=== PATIENT | female | born 1945 | race Caucasian/White ===

== ENCOUNTER 2020-01-04 18:32 | Emergency (ER) | payer MEDICARE, SELFPAY ==
[2020-01-04 18:35] VITALS: BP 192/80; PULSE 81; RESP 16; TEMP 36.1; O2SAT 98; BMI 32.2
[2020-01-04] MEDS: LIDOCAINE 2% W/EPI INJ 1 ML INJ (19:09)
[2020-01-04] MEDS: TET,DIPH,PERTUSS(ACELL),VAC/PF 0.5 ML SYRINGE IM (19:10)
--- NOTE | 2020-01-04 19:41 | ED.WOUNDLAC ---
HPI - Wound/Laceration <BLOSSOM Hogue - Last Filed: 01/04/20 20:27> General Chief Complaint: Wound/Laceration Stated Complaint: LACERATION OF TOP OF HEAD Time Seen by Provider: 01/04/20 18:49 Mode of arrival: Family Vehicle History of Present Illness HPI narrative: 74 year old female with a history of a renal transplant and diabetes, presents to the emergency department for laceration to the back of her scalp. She states she was mowing the lawn when a branch hit her on the top of her head. She noticed some bleeding and a laceration. She is unsure of last Tdap. Patient denies any syncope, dizziness, headache, vision changes, neck pain, falls, nausea, vomiting, diarrhea, or any other concerns. Related Data Allergies Allergy/AdvReac Type Severity Reaction Status Date / Time Penicillins Allergy Mild Verified 01/04/20 19:08 Review of Systems <BLOSSOM Hogue - Last Filed: 01/04/20 20:27> Review of Systems Narrative: REVIEW OF SYSTEMS: GENERAL: Denies fever or chills. HENT: Denies headache. EYE: Denies double vision or vision loss. CARDIOVASCULAR: Denies syncope. MUSCULOSKELETAL: Denies weakness, or deformities. INTEGUMENTARY: Complains of laceration, see HPI. NEURO: Denies numbness or tingling. Patient History <BLOSSOM Hogue - Last Filed: 01/04/20 20:27> Medical History Diabetes (Acute) Social History Smoking Status: Former smoker Smoking Status: Former smoker alcohol intake frequency: 0-2 drinks per day Substance Use Type: does not use Exam <BLOSSOM Hogue - Last Filed: 01/04/20 20:27> Initial Vital Signs Initial Vital Signs: Vital Signs Temperature 97.0 F L 01/04/20 18:35 Pulse Rate 81 01/04/20 18:35 Respiratory Rate 16 01/04/20 18:35 Blood Pressure 192/80 H 01/04/20 18:35 Pulse Oximetry 98 01/04/20 18:35 PHYSICAL EXAMINATION: GENERAL: Well groomed, alert, and cooperative. Answers questions promptly and appropriately. Vital signs noted. HENT: Normocephalic, atraumatic. RESPIRATORY: Normal respiratory rate, trachea midline, airway patent. No stridor, nasal flaring or accessory muscle use. MUSCULOSKELETAL: Normal gait and coordination. Equal tone and mass bilaterally. EXTREMITIES: CMS intact. Moves all extremities. SKIN: Warm, dry, soft, appropriate color for ethnicity. There is a 9 cm laceration noted to top head, see HPI. NEURO: Alert and Oriented X 3. Good coordination. PSYCH: Appropriate affect and mood. <Chino Anna DO - Last Filed: 01/04/20 22:07> Initial Vital Signs Initial Vital Signs: Vital Signs Temperature 97.0 F L 01/04/20 18:35 Pulse Rate 81 01/04/20 18:35 Respiratory Rate 16 01/04/20 18:35 Blood Pressure 192/80 H 01/04/20 18:35 Pulse Oximetry 98 01/04/20 18:35 Procedures <BLOSSOM Hogue - Last Filed: 01/04/20 20:27> Laceration Repair Laceration 1: Site: scalp Size (cm): 9 Description: linear Depth: simple, single layer Local Anesthetic: lidocaine 1% and with epi Amount of anesthesia used (mL): 2 Pre-repair: wound explored and irrigated extensively Skin layer closed with: louis Number of sutures: 2 Scores <BLOSSOM Hogue - Last Filed: 01/04/20 20:27> Nexus Score for C-Spine Focal Neurologic deficit present: No Midline spinal tenderness present: No Altered level of conciousness present: No Intoxication present: No Distracting Injury Present: No Nexus Criteria for C-spine: 0 Course <BLOSSOM Hogue - Last Filed: 01/04/20 20:27> Orders Ordered: Discontinued Medications Diphtheria/Tetanus/Acell Pertussis (Adacel) 0.5 ml IM .ONCE ONE Stop: 01/04/20 18:50 Last Admin: 01/04/20 19:10 Dose: 0.5 ml Documented by: CLAUANCE Lidocaine/Epinephrine (Xylocaine 2% W/Epi) 1 ml INJ INTRA-OP ONE Stop: 01/04/20 18:50 Last Admin: 01/04/20 19:09 Dose: 1 ml Documented by: CVANCE Vital Signs Vital signs: Vital Signs - 8 hr 06/26/20 18:35 01/04/20 19:44 01/04/20 19:55 Temperature 97.0 F L Pulse Rate 81 80 78 Respiratory Rate 16 18 15 Blood Pressure 192/80 H 104/56 L Blood Pressure [Left Arm] 121/63 Pulse Oximetry 98 96 96 <Chino Anna DO - Last Filed: 01/04/20 22:07> Orders Ordered: Discontinued Medications Diphtheria/Tetanus/Acell Pertussis (Adacel) 0.5 ml IM .ONCE ONE Stop: 01/04/20 18:50 Last Admin: 01/04/20 19:10 Dose: 0.5 ml Documented by: CVANCE Lidocaine/Epinephrine (Xylocaine 2% W/Epi) 1 ml INJ INTRA-OP ONE Stop: 01/04/20 18:50 Last Admin: 01/04/20 19:09 Dose: 1 ml Documented by: CVANCE Vital Signs Vital signs: Vital Signs - 8 hr 01/04/20 18:35 01/04/20 19:44 01/04/20 19:55 Temperature 97.0 F L Pulse Rate 81 80 78 Respiratory Rate 16 18 15 Blood Pressure 192/80 H 104/56 L Blood Pressure [Left Arm] 121/63 Pulse Oximetry 98 96 96 MDM - Wound/Laceration <BLOSSOM Hogue - Last Filed: 01/04/20 20:27> Medical Records Attestation: I reviewed the patient's medical records. Lab Data Attestation: I reviewed the patient's lab results. MDM Narrative Medical decision making narrative: 74-year-old female with a laceration to the back of her head, currently not taking any blood thinners other than aspirin. Simple laceration repair with sutures, see laceration note. No concerns for head trauma, intracranial bleed, or neck injury due to mechanism of injury, and lack of other concerning symptoms such as syncope, falls, or vision changes. Patient's Tdap was updated. Patient was encouraged to follow up with her primary care provider in 1-2 weeks for further evaluation and suture removal. Return precautions given. Patient agreed to plan of care verbalized understanding. Discharge Plan Departure Patient Disposition: Home Clinical Impression: Laceration Discharge Date/Time: 01/04/20 19:56 Instructions: DI for Laceration Repair Activity Restrictions/Additional Instructions: Thank you for entrusting me with your care today. As discussed, louis were placed in your scalp laceration. These can be removed in 7-[address] bacitracin or Neosporin on the area 1 to 2 times a day to help with healing. Please watch for signs of infection such as pus, redness, tenderness, or discharge--if this occurs please be seen immediately. Return emergency department for any new or worsening symptoms such as severe headache, dizziness, chest pain, shortness of breath, or any other concerns. Referrals: Suzette Gamez MD [Primary Care Provider] - <Chino Anna DO - Last Filed: 01/04/20 22:07> Cosign ED Attending Cosignature Attestation: Dr Anna Co-Sign Statement: I was available for consultation during this patient's emergency department visit. This chart is signed by myself for administrative purposes only. I did not have direct contact with this patient during this visit. They were seen independently by the APC.
[2020-01-04 19:44] VITALS: BP 121/63; PULSE 80; RESP 18; O2SAT 96
[2020-01-04 19:55] VITALS: BP 104/56; PULSE 78; RESP 15; O2SAT 96
== END 2020-01-04 19:56 | disposition home or self-care (01) ==
PROVIDERS: Emergency Provider Nurse Practitioner; PCP Family Medicine
DX: S01.01XA Laceration without foreign body of scalp, initial encounter (principal); W22.8XXA Striking against or struck by other objects, initial encounter; Z23 Encounter for immunization
CPT/HCPCS: 12004; 90471; 99283; 90715

== ENCOUNTER 2020-01-21 17:33 | Emergency (ER) | payer MEDICARE, SELFPAY ==
[2020-01-21 17:42] VITALS: BP 148/92; PULSE 94; RESP 18; TEMP 37; O2SAT 97; BMI 32.5
[2020-01-21 19:43] LABS: RBC Urine None Seen (0-5/HPF)
--- NOTE | 2020-01-21 19:52 | ED.FEVER ---
HPI - Fever <HAILEY Clarke-BC - Last Filed: 01/21/20 22:20> General Chief Complaint: Fever Stated Complaint: Fever, Diabetic, Has Kidney Transplant Time Seen by Provider: 01/21/20 18:39 Source: patient Mode of arrival: Ambulatory Limitations: no limitations History of Present Illness HPI Narrative: 74-year-old female former smoker with history of renal transplant 1 year ago who presents with a chief complaint of a fever yesterday. She states that her T-max over the past few days as 100.5?. She states that since she is normally 97?, even 98? is a fever. She denies any nausea or vomiting. She denies any cough or chest pain. She denies any shortness of breath. She states that she has ?feeling? in her right ear, no pain in her left ear. She does complain of ?pressure with urination that resolves after she urinates. She denies any dysuria, states that urgency and frequency are normal for her. She called her primary care provider, Dr. Ohara who referred her to the emergency department for covid testing. She is trying to stay at home to isolate at this point, especially given her renal transplant though has been out walking her dogs and at the beach [facility]. The patient states she takes tac 2.5 mg in the morning, 2 at night. She is also on meclofenamate 6.25 mg twice a day. Related Data Previous Rx's Medication Instructions Recorded ciprofloxacin HCl 500 mg PO BID 7 Days #14 tab 01/21/20 Allergies Allergy/AdvReac Type Severity Reaction Status Date / Time Penicillins Allergy Mild Verified 01/04/20 19:08 Review of Systems <KIRK Clarke - Last Filed: 01/21/20 22:20> Review of Systems Narrative: GENERAL: See HPI HEENT: See HPI RESPIRATORY: Denies dyspnea, cough, wheezing, hemoptysis, sputum. CARDIOVASCULAR: Denies chest pain, palpitations, orthopnea, edema, GASTROINTESTINAL: Denies nausea, vomiting, abdominal pain, diarrhea, constipation, melena. : Denies dysuria, frequency, incontinence, hematuria, urinary retention. MUSCULOSKELETAL: denies weakness, joint pain, or bony pain SKIN: Denies rash, skin lesions, or other NEUROLOGIC: Denies weakness, headache, numbness, change in speech, confusion, seizures, incoordination. PSYCHIATRIC: No concerning psychosocial issues. 12 point review of systems is negative except for those stated above Patient History <KIRK Clarke - Last Filed: 01/21/20 22:20> Medical History (Updated 01/21/20 @ 22:17 by KIRK Clarke) Diabetes (Acute) Social History Smoking Status: Former smoker Smoking Status: Former smoker alcohol intake frequency: 0-2 drinks per day Substance Use Type: does not use Exam <KIRK Clarke - Last Filed: 01/21/20 22:20> Narrative Exam Narrative: GENERAL: This is a well-nourished, well-developed patient, no acute distress HEAD: Atraumatic. Normocephalic. No temporal or scalp tenderness. EYES: Pupils equal round and reactive. Extraocular motions intact. No scleral icterus. No injection or drainage. ENT: Nose without bleeding, purulent drainage or septal hematoma. Throat without erythema, tonsillar hypertrophy or exudate. Uvula midline. Airway patent. Bilateral TMs pearly jacob. NECK: Trachea midline. No JVD or lymphadenopathy. Supple, nontender, no meningeal signs. CARDIOVASCULAR: Regular rate and rhythm. RESPIRATORY: Clear to auscultation. Breath sounds equal bilaterally. No wheezes, rales, or rhonchi. No cough. No increased respiratory effort. No accessory muscle use GASTROINTESTINAL: Abdomen soft, non-tender, nondistended. No hepato-splenomegaly, or palpable masses. No guarding. EXTREMITIES: No clubbing, cyanosis, or edema. No joint tenderness, effusion, or edema noted. BACK: Nontender without deformity or crepitance. No flank tenderness. No CVA tenderness bilaterally. NEURO: AOx3. SKIN: No rash or erythema on visible skin Initial Vital Signs Initial Vital Signs: Vital Signs Temperature 98.6 F 01/21/20 17:42 Pulse Rate 94 H 01/21/20 17:42 Respiratory Rate 18 01/21/20 17:42 Blood Pressure 148/92 H 01/21/20 17:42 Pulse Oximetry 97 01/21/20 17:42 <Luis Hicks DO - Last Filed: 01/22/20 00:18> Initial Vital Signs Initial Vital Signs: Vital Signs Temperature 98.6 F 01/21/20 17:42 Pulse Rate 94 H 01/21/20 17:42 Respiratory Rate 18 01/21/20 17:42 Blood Pressure 148/92 H 01/21/20 17:42 Pulse Oximetry 97 01/21/20 17:42 Scores <KIRK Clarke - Last Filed: 01/21/20 22:20> GCS Joiner coma scale eye opening: Spontaneous Joiner coma scale verbal response: Orientated Loni coma scale motor response: Obey commands Joiner coma scale total score: 15 Course <KIRK Clarke - Last Filed: 01/21/20 22:20> Orders Ordered: ED Orders 01/21/20 19:15 Urine Culture Stat Urine Microscopic Stat 01/21/20 19:50 Complete Blood Count AUTO DIFF Stat Comprehensive Metabolic Panel Stat Lactate (Lactic Acid) Stat Procalcitonin Stat 01/21/20 19:59 Blood Culture Stat Discontinued Medications Acetaminophen (Tylenol) 975 mg PO NOW ONE Stop: 01/21/20 21:33 Last Admin: 01/21/20 21:36 Dose: 975 mg Documented by: RONAK Ciprofloxacin (Cipro) 500 mg PO NOW ONE Stop: 01/21/20 22:10 Last Admin: 01/21/20 22:30 Dose: 500 mg Documented by: RONAK Vital Signs Vital signs: Vital Signs - 8 hr 01/21/20 17:42 01/21/20 20:05 01/21/20 21:32 Temperature 98.6 F 98.9 F 101.3 F H Pulse Rate 94 H 101 H 101 H Respiratory Rate 18 20 20 Blood Pressure 148/92 H 196/80 H 176/84 H Pulse Oximetry 97 98 97 01/21/20 21:36 01/21/20 22:30 Temperature 101.3 F H 99.8 F H Pulse Rate 98 H Respiratory Rate 20 Blood Pressure 133/63 Pulse Oximetry 95 <Luis Hicks DO - Last Filed: 01/22/20 00:18> Orders Ordered: ED Orders 01/21/20 19:15 Urine Culture Stat Urine Microscopic Stat 01/21/20 19:50 Complete Blood Count AUTO DIFF Stat Comprehensive Metabolic Panel Stat Lactate (Lactic Acid) Stat Procalcitonin Stat 01/21/20 19:59 Blood Culture Stat Discontinued Medications Acetaminophen (Tylenol) 975 mg PO NOW ONE Stop: 01/21/20 21:33 Last Admin: 01/21/20 21:36 Dose: 975 mg Documented by: CTRMABEL Ciprofloxacin (Cipro) 500 mg PO NOW ONE Stop: 01/21/20 22:10 Last Admin: 01/21/20 22:30 Dose: 500 mg Documented by: CTRMABEL Vital Signs Vital signs: Vital Signs - 8 hr 01/21/20 17:42 01/21/20 20:05 01/21/20 21:32 Temperature 98.6 F 98.9 F 101.3 F H Pulse Rate 94 H 101 H 101 H Respiratory Rate 18 20 20 Blood Pressure 148/92 H 196/80 H 176/84 H Pulse Oximetry 97 98 97 01/21/20 21:36 01/21/20 22:30 Temperature 101.3 F H 99.8 F H Pulse Rate 98 H Respiratory Rate 20 Blood Pressure 133/63 Pulse Oximetry 95 MDM - Fever <HAILEY Clarke-BC - Last Filed: 01/21/20 22:20> Lab Data Result diagrams: 01/21/20 19:50 01/21/20 19:50 Labs: Lab Results 01/21/20 01/21/20 01/21/20 Range/Units 19:15 19:50 19:50 WBC 13.1 H (4.5-11.0) X10^3/uL RBC 4.29 (4.0-5.2) X10^6/uL Hgb 13.5 (12.0-16.0) g/dL Hct 40.0 (36-46) % MCV 93.2 (80-100) fL MCH 31.4 (26-34) PG MCHC 33.7 (30-36) % RDW 13.6 (11.6-14.8) % Plt Count 201 (150-400) X10^3/uL Neut % (Auto) 86.9 H (50-75) % Lymph % (Auto) 6.0 L (25-40) % [place] % (Auto) 7.0 (3-14) % Eos % (Auto) 0.0 L (2-4) % Baso % (Auto) 0.1 (0-2) % Neut # (Auto) 40756 H (2635-3495) /uL Lymph # (Auto) 800 L (9583-0286) /uL [place] # (Auto) 900 (0-900) /uL Eos # (Auto) 0 (0-450) /uL Baso # (Auto) 0 (0-100) /uL Sodium (137-145) mmol/L Potassium (3.4-5.1) mmol/L Chloride (98-107) mmol/L Carbon Dioxide (22-32) mmol/L BUN (7-17) mg/dL Creatinine (0.52-1.04) mg/dL Estimated GFR (>60) mL/min BUN/Creatinine Ratio (6-22) Glucose (80-110) mg/dL Lactate (0.7-2.1) mmol/L Calcium (8.4-10.2) mg/dL Total Bilirubin (0.2-1.3) mg/dL AST (14-36) IU/L ALT (<35) IU/L Alkaline Phosphatase (38-126) U/L Total Protein (6.3-8.2) g/dL Albumin (3.5-5.0) g/dL Globulin (1.7-4.1) g/dL Albumin/Globulin Ratio (1.0-2.8) Procalcitonin 0.15 (<0.5) ng/mL Urine RBC None seen (0-5/HPF) Urine WBC 5-10/hpf H (0-5/HPF) Ur Squamous Epith Cells 0-1 /hpf (0-5/HPF) Urine Bacteria Many (>30) H (None) Ur Culture Indicated? Specimen cultured 01/21/20 01/21/20 Range/Units 19:50 19:50 WBC (4.5-11.0) X10^3/uL RBC (4.0-5.2) X10^6/uL Hgb (12.0-16.0) g/dL Hct (36-46) % MCV (80-100) fL MCH (26-34) PG MCHC (30-36) % RDW (11.6-14.8) % Plt Count (150-400) X10^3/uL Neut % (Auto) (50-75) % Lymph % (Auto) (25-40) % [place] % (Auto) (3-14) % Eos % (Auto) (2-4) % Baso % (Auto) (0-2) % Neut # (Auto) (4296-2444) /uL Lymph # (Auto) (0029-3562) /uL [place] # (Auto) (0-900) /uL Eos # (Auto) (0-450) /uL Baso # (Auto) (0-100) /uL Sodium 133 L (137-145) mmol/L Potassium 4.3 (3.4-5.1) mmol/L Chloride 101 (98-107) mmol/L Carbon Dioxide 24 (22-32) mmol/L BUN 17 (7-17) mg/dL Creatinine 0.79 (0.52-1.04) mg/dL Estimated GFR > 60.0 (>60) mL/min BUN/Creatinine Ratio 21.5 (6-22) Glucose 112 H (80-110) mg/dL Lactate 1.7 (0.7-2.1) mmol/L Calcium 10.9 H (8.4-10.2) mg/dL Total Bilirubin 0.8 (0.2-1.3) mg/dL AST 35 (14-36) IU/L ALT 34 (<35) IU/L Alkaline Phosphatase 106 (38-126) U/L Total Protein 7.3 (6.3-8.2) g/dL Albumin 4.4 (3.5-5.0) g/dL Globulin 2.9 (1.7-4.1) g/dL Albumin/Globulin Ratio 1.5 (1.0-2.8) Procalcitonin (<0.5) ng/mL Urine RBC (0-5/HPF) Urine WBC (0-5/HPF) Ur Squamous Epith Cells (0-5/HPF) Urine Bacteria (None) Ur Culture Indicated? Urine Dip Bedside Urine Glucose Negative Bedside Urine Bilirubin - Negative Bedside Urine Ketone - Negative Urine Specific [place] 1.010 Bedside Urine Occult Blood +/- Bedside Urine pH 6.0 Bedside Urine Protein - Negative Bedside Urine Urobilinogen - Negative Bedside Urine Nitrite + Positive Bedside Urine Leukocytes + 70 Esterase MDM Narrative Medical decision making narrative: The patient is a 74-year-old female who presents with a chief complaint of a fever yesterday. She was tested for coronavirus, though has no respiratory symptoms. Given that she had urinary pressure, we did obtain a urinalysis. This was positive for leukocyte esterase as well as nitrates. Thus lab work obtained, slight leukocytosis to 13. Lactate of 1.7. Procalcitonin less than 0.5. The patient requested to go home multiple times. No nausea, no vomiting, no CVA tenderness or abdominal pain. Given that the patient is 1 year post kidney transplant as well as this is her 1st UTI posttransplant. The patient did develop a temperature during her stay in the emergency department, while I was waiting to hear back from [facility]. A g of Tylenol was given. Contact with [facility] was initiated at 9:00 p.m, heard back from transfer center nurse at 21:35, and will hear back from attending. I heard from Dr. Taylor, transplant surgeon on-call who recommended that the patient be placed on Cipro. We discussed her lab work, leukocytosis, procalcitonin and renal function. Encouraged follow-up with primary care provider. Patient is in accordance with plan of care and requesting to go home. First dose of Cipro given in the emergency department. Encourage coming back to the emergency department for any signs of acute worsening such as inability keep down fluids etcetera. Patient has no questions or concerns upon discharge and states understanding of return precautions as well as follow-up care. <Luis Hicks, - Last Filed: 01/22/20 00:18> Lab Data Labs: Lab Results 01/21/20 01/21/20 01/21/20 Range/Units 19:15 19:50 19:50 WBC 13.1 H (4.5-11.0) X10^3/uL RBC 4.29 (4.0-5.2) X10^6/uL Hgb 13.5 (12.0-16.0) g/dL Hct 40.0 (36-46) % MCV 93.2 (80-100) fL MCH 31.4 (26-34) PG MCHC 33.7 (30-36) % RDW 13.6 (11.6-14.8) % Plt Count 201 (150-400) X10^3/uL Neut % (Auto) 86.9 H (50-75) % Lymph % (Auto) 6.0 L (25-40) % [place] % (Auto) 7.0 (3-14) % Eos % (Auto) 0.0 L (2-4) % Baso % (Auto) 0.1 (0-2) % Neut # (Auto) 44052 H (5993-4660) /uL Lymph # (Auto) 800 L (4210-0510) /uL [place] # (Auto) 900 (0-900) /uL Eos # (Auto) 0 (0-450) /uL Baso # (Auto) 0 (0-100) /uL Sodium (137-145) mmol/L Potassium (3.4-5.1) mmol/L Chloride (98-107) mmol/L Carbon Dioxide (22-32) mmol/L BUN (7-17) mg/dL Creatinine (0.52-1.04) mg/dL Estimated GFR (>60) mL/min BUN/Creatinine Ratio (6-22) Glucose (80-110) mg/dL Lactate (0.7-2.1) mmol/L Calcium (8.4-10.2) mg/dL Total Bilirubin (0.2-1.3) mg/dL AST (14-36) IU/L ALT (<35) IU/L Alkaline Phosphatase (38-126) U/L Total Protein (6.3-8.2) g/dL Albumin (3.5-5.0) g/dL Globulin (1.7-4.1) g/dL Albumin/Globulin Ratio (1.0-2.8) Procalcitonin 0.15 (<0.5) ng/mL Urine RBC None seen (0-5/HPF) Urine WBC 5-10/hpf H (0-5/HPF) Ur Squamous Epith Cells 0-1 /hpf (0-5/HPF) Urine Bacteria Many (>30) H (None) Ur Culture Indicated? Specimen cultured 01/21/20 01/21/20 Range/Units 19:50 19:50 WBC (4.5-11.0) X10^3/uL RBC (4.0-5.2) X10^6/uL Hgb (12.0-16.0) g/dL Hct (36-46) % MCV (80-100) fL MCH (26-34) PG MCHC (30-36) % RDW (11.6-14.8) % Plt Count (150-400) X10^3/uL Neut % (Auto) (50-75) % Lymph % (Auto) (25-40) % [place] % (Auto) (3-14) % Eos % (Auto) (2-4) % Baso % (Auto) (0-2) % Neut # (Auto) (5702-1778) /uL Lymph # (Auto) (4612-3164) /uL [place] # (Auto) (0-900) /uL Eos # (Auto) (0-450) /uL Baso # (Auto) (0-100) /uL Sodium 133 L (137-145) mmol/L Potassium 4.3 (3.4-5.1) mmol/L Chloride 101 (98-107) mmol/L Carbon Dioxide 24 (22-32) mmol/L BUN 17 (7-17) mg/dL Creatinine 0.79 (0.52-1.04) mg/dL Estimated GFR > 60.0 (>60) mL/min BUN/Creatinine Ratio 21.5 (6-22) Glucose 112 H (80-110) mg/dL Lactate 1.7 (0.7-2.1) mmol/L Calcium 10.9 H (8.4-10.2) mg/dL Total Bilirubin 0.8 (0.2-1.3) mg/dL AST 35 (14-36) IU/L ALT 34 (<35) IU/L Alkaline Phosphatase 106 (38-126) U/L Total Protein 7.3 (6.3-8.2) g/dL Albumin 4.4 (3.5-5.0) g/dL Globulin 2.9 (1.7-4.1) g/dL Albumin/Globulin Ratio 1.5 (1.0-2.8) Procalcitonin (<0.5) ng/mL Urine RBC (0-5/HPF) Urine WBC (0-5/HPF) Ur Squamous Epith Cells (0-5/HPF) Urine Bacteria (None) Ur Culture Indicated? Urine Dip Bedside Urine Glucose Negative Bedside Urine Bilirubin - Negative Bedside Urine Ketone - Negative Urine Specific [place] 1.010 Bedside Urine Occult Blood +/- Bedside Urine pH 6.0 Bedside Urine Protein - Negative Bedside Urine Urobilinogen - Negative Bedside Urine Nitrite + Positive Bedside Urine Leukocytes + 70 Esterase Discharge Plan Departure Patient Disposition: Home Clinical Impression: Acute UTI Fever Qualifiers: Fever type: unspecified Qualified Code(s): R50.9 - Fever, unspecified Discharge Date/Time: 01/21/20 22:30 Instructions: DI for Urinary Tract Infection (UTI), DI for Fever (Symptom) -- Adult Activity Restrictions/Additional Instructions: Thank you for trusting us with your care today As discussed, your urinalysis indicates a urinary tract infection. I spoke with Dr. Taylor from [facility] who recommended ciprofloxacin. I sent this prescription to [facility] in [place]. Please take it with probiotic or yogurt. As discussed, please monitor for any tendon pain. Please monitor for signs of worsening such as inability keep down fluids, severe flank or back pain. Please follow up if these occur. Please come back to the emergency department for any acute concerns. Please follow-up with primary care provider in the next few days We will call you with results of your coronavirus test whether they are positive or negative. They will result in 1-2 days. Prescriptions: New ciprofloxacin HCl 500 mg tablet 500 mg PO BID 7 Days Qty: 14 RF: 0 Referrals: Neda Ohara MD [Primary Care Provider] - <Luis Hicks DO - Last Filed: 01/22/20 00:18> Cosign ED Attending Cosignature Attestation: I was immediately available in the department for consultation. This documentation has been reviewed and I agree with assessment and plan. Supervised by Luis Hicks DO
[2020-01-21 19:53] LABS: Bacteria Urine Many (>30); Culture Indicated Urine Specimen Cultured; Squamous Epithelial Cell Urine 0-1 /HPF (0-5/HPF); WBC Urine 5-10/HPF (0-5/HPF)
[2020-01-21 20:05] VITALS: BP 196/80; PULSE 101; RESP 20; TEMP 37.2; O2SAT 98
[2020-01-21 20:16] LABS: Add Manual Diff / Slide Review NO; Basophils Absolute Auto 0 /uL (0-100); Basophils Percent Auto 0.1 % (0-2); Eosinophils Absolute Auto 0 /uL (0-450); Hemoglobin 13.5 g/dL (12.0-16.0); Lymphocytes Absolute Auto 800 /uL (1100-4500); Mean Corpuscular HGB Conc 33.7 % (30-36); Mean Corpuscular Hemoglobin 31.4 PG (26-34); Mean Corpuscular Volume 93.2 fL (80-100); Monocytes Absolute Auto 900 /uL (0-900); Neutrophils Absolute Auto 11400 /uL (1500-7000); Neutrophils Percent Auto 86.9 % (50-75); Platelet Count 201 X10^3/uL (150-400); Red Blood Cell Count 4.29 X10^6/uL (4.0-5.2); Red Cell Distribution Width 13.6 % (11.6-14.8); White Blood Cell Count 13.1 X10^3/uL (4.5-11.0)
[2020-01-21 20:24] LABS: Alanine Aminotransferase 34 IU/L (<35); Albumin 4.4 g/dL (3.5-5.0); Albumin Globulin Ratio 1.5 (1.0-2.8); Alkaline Phosphatase 106 U/L (38-126); Aspartate Aminotransferase 35 IU/L (14-36); BUN Creatinine Ratio 21.5 (6-22); Bilirubin Total 0.8 mg/dL (0.2-1.3); Blood Urea Nitrogen 17 mg/dL (7-17); Calcium 10.9 mg/dL (8.4-10.2); Carbon Dioxide 24 mmol/L (22-32); Chloride 101 mmol/L (98-107); Estimated Glomerular Filt Rate > 60.0 mL/min (>60); Globulin 2.9 g/dL (1.7-4.1); Glucose 112 mg/dL (80-110); HEMOLYSIS 15 (0-50); Lactate (Lactic Acid) 1.7 mmol/L (0.7-2.1); Potassium 4.3 mmol/L (3.4-5.1); Sodium 133 mmol/L (137-145); Total Protein 7.3 g/dL (6.3-8.2)
[2020-01-21 20:46] LABS: Procalcitonin 0.15 ng/mL (<0.5)
[2020-01-21 21:32] VITALS: BP 176/84; PULSE 101; RESP 20; TEMP 38.5; O2SAT 97
[2020-01-21 21:36] VITALS: TEMP 38.5
[2020-01-21] MEDS: ACETAMINOPHEN 325 MG TABLET 975 MG PO (21:36)
[2020-01-21 22:30] VITALS: BP 133/63; PULSE 98; RESP 20; TEMP 37.7; O2SAT 95
[2020-01-21] MEDS: CIPROFLOXACIN 500 MG TABLET PO (22:30)
[2020-01-25 09:13] LABS: COVID19 Sendout Not Detected (Not Detected)
== END 2020-01-21 22:30 | disposition home or self-care (01) ==
PROVIDERS: Emergency Provider Nurse Practitioner Family; PCP Internal Medicine
DX: N39.0 Urinary tract infection, site not specified (principal); R50.9 Fever, unspecified
CPT/HCPCS: 36415; 80053; 81003; 81015; 83605; 84145; 85025; 87040; 87077; 87086; 87186; 87635; 99283

== ENCOUNTER → 2020-06-25 14:52 | Outpatient (CLI) | payer MEDICARE, SELFPAY ==
--- NOTE | 2020-06-25 | DI.ECHO.S_ITS ---
[facility] +---------+ : : [address] [place] : : : : [id number] : : : : Phone: [phone]+ Echocardiogram Report + + :Name: STORM JOSEPH Study Date: 06/25/2020 Height: 67 in : :[facility] Weight: 222 lb : : Gender: Female BSA: 2.1 m2 : :: 1945 Age: 74 yrs BP: 152/76 mmHg: :Reason For Study: murmur : :Ordering Physician: RORY, : :NAVYA Adan Performed By: Amy Rojo : :Referring: NESTOR HUBBARD : + + Interpretation Summary The left ventricle is normal in size. Left ventricular systolic function appears normal without focal wall motion abnormalities. The ejection fraction is estimated to be 65-70%. Diastolic parameters suggest a relaxation abnormality of the left ventricle, consistent with probable normal filling pressures. The right ventricle is normal in size and function. Pulmonary artery pressures cannot be estimated because of the lack of a measurable TR jet velocity but the IVC suggests a CVP of around 3 mmHg. The left atrium is mildly dilated. Right atrial size is normal. Cannot completely rule out bicuspid aortic valve. There is mild to moderate aortic stenosis. The peak aortic velocity is 2.3 m/sec. The calculated aortic valve area is 1.3 cm2. There is no other significant valvular heart disease. The ascending aorta is at the upper limits of normal in size. Procedure: A two-dimensional transthoracic echocardiogram with color flow and Doppler was performed. The study quality was technically adequate. There is no prior echocardiogram noted for this patient. The patient was in sinus rhythm with heart rates between 67-75 bpm during the exam. Left Ventricle: The left ventricle is normal in size. Left ventricular wall thickness is mildly increased. Left ventricular systolic function appears normal without focal wall motion abnormalities. The ejection fraction is estimated to be 65-70%. Diastolic parameters suggest a relaxation abnormality of the left ventricle, consistent with probable normal filling pressures. Right Ventricle: The right ventricle is normal in size and function. Atria: The left atrium is mildly dilated. Right atrial size is normal. There is no Doppler evidence for an interatrial shunt. Mitral Valve: There is mild mitral annular calcification. The mitral valve leaflets appear mildly thickened, but open well. There is trace mitral regurgitation. Aortic Valve: The aortic valve is mildly calcified. Cannot completely rule out bicuspid aortic valve. There is mild to moderate aortic stenosis. The peak aortic velocity is 2.3 m/sec. The aortic valve mean gradient is 13 mmHg. The calculated aortic valve area is 1.3 cm2. No aortic regurgitation is present. Tricuspid Valve: The tricuspid valve is normal in structure but is abnormal in function. Pulmonary artery pressures cannot be estimated because of the lack of a measurable TR jet velocity but the IVC suggests a CVP of around 3 mmHg. There is trace tricuspid regurgitation. Pulmonic Valve: The pulmonic valve leaflets are thin and pliable; valve motion is normal. There is trace pulmonic regurgitation. There is no other significant valvular heart disease. Great Vessels: The aortic root is normal size. The ascending aorta is at the upper limits of normal in size. The IVC is of normal diameter and collapses greater than 50% with a sniff. This suggests a low right atrial pressure of 3 mm Hg. Pericardium/ Pleura There is no pericardial effusion. There is no pleural effusion. MMode/2D Measurements & Calculations LVIDd: 4.3 cm LVOT diam: 2.0 cm LVIDs: 3.1 cm Ao root diam: 3.0 cm FS: 28.5 % asc Aorta Diam: 3.4 cm EPSS: 0.62 cm Ao Arch Diam (Prox Trans): 2.9 cm IVSd: 1.3 cm LVPWd: 0.83 cm LV kauffman. diameter/BSA (cm/m^2): 2.1 LV sys. diameter/BSA (cm/m^2): 1.5 LA A2 area: 25.6 cm2 RA long axis: 5.0 cm LA A4 area: 18.7 cm2 RA area: 17.0 cm2 LA length (vol): 5.7 cm RA vol: 48.8 ml LA vol: 71.8 ml RA : 23.1 ml/m2 LA vol index: 34.0 ml/m2 IVC diam: 1.7 cm RVD1 (basal): 3.6 cm TAPSE: 2.7 cm Doppler Measurements & Calculations Ao V2 max: 227.6 cm/sec LVOT Max Bernardino: 99.5 cm/sec Ao V2 mean: 170.5 cm/sec LV V1 max P.0 mmHg Ao max P.7 mmHg LV V1 VTI: 22.6 cm Ao mean P.6 mmHg SHAUN(I,D): 1.3 cm2 Ao V2 VTI: 52.8 cm SHAUN(V,D): 1.3 cm2 sev ratio: 0.43 SHAUN indexed to BSA (cm^2/m^2): 0.61 MV E max bernardino: 73.3 cm/sec PA V2 max: 95.3 cm/sec MV A max bernardino: 91.6 cm/sec PA V2 mean: 71.9 cm/sec MV E/A: 0.80 PA mean P.3 mmHg Med Peak E' Bernardino: 7.5 cm/sec PA pr(Accel): 36.2 mmHg E/E' med: 9.7 Lat Peak E' Bernardino: 9.0 cm/sec E/E' lat: 8.2 E/e' average: 8.9 MV dec time: 0.32 sec SV(LVOT): 68.3 ml Reading Physician:05:05 PM
== END ==
PROVIDERS: PCP Internal Medicine; Referring Provider Family Medicine; Visit Provider Family Medicine
DX: I35.0 Nonrheumatic aortic (valve) stenosis (principal); R01.0 Benign and innocent cardiac murmurs
CPT/HCPCS: 93306

== ENCOUNTER → 2020-12-11 11:55 | Outpatient (CLI) | payer MEDICARE, SELFPAY ==
[2020-12-11 12:08] LABS: Bacteria Urine None Seen; RBC Urine None Seen (0-5/HPF)
[2020-12-11 12:55] LABS: Add Manual Diff / Slide Review NO; Basophils Absolute Auto 100 /uL (0-100); Basophils Percent Auto 0.7 % (0-2); Eosinophils Absolute Auto 0 /uL (0-450); Eosinophils Percent Auto 0.4 % (2-4); Hematocrit 38.7 % (36-46); Hemoglobin 12.6 g/dL (12.0-16.0); Lymphocytes Absolute Auto 1200 /uL (1100-4500); Mean Corpuscular HGB Conc 32.7 % (30-36); Mean Corpuscular Hemoglobin 30.2 PG (26-34); Mean Corpuscular Volume 92.5 fL (80-100); Monocytes Absolute Auto 500 /uL (0-900); Monocytes Percent Auto 6.1 % (3-14); Neutrophils Absolute Auto 6800 /uL (1500-7000); Neutrophils Percent Auto 78.8 % (50-75); Platelet Count 271 X10^3/uL (150-400); Red Blood Cell Count 4.19 X10^6/uL (4.0-5.2); Red Cell Distribution Width 13.6 % (11.6-14.8); White Blood Cell Count 8.6 X10^3/uL (4.5-11.0)
[2020-12-11 13:00] LABS: Appearance Urine UA CLEAR; Bilirubin Urine UA NEGATIVE (NEGATIVE); Color Urine UA YELLOW; Glucose Urine UA NEGATIVE (Negative); Ketones Urine UA NEGATIVE (NEGATIVE); Leukocyte Esterase Urine UA NEGATIVE (NEGATIVE); Nitrite Urine UA NEGATIVE (Negative); Occult Blood Urine UA NEGATIVE (Negative); Protein Urine UA NEGATIVE (Negative); Specific Gravity Urine UA 1.025 (1.000-1.035); Urobilinogen Urine UA 0.2 E.U./dL (0.2)
[2020-12-11 13:05] LABS: Hemoglobin A1C% w Est Avg Glu 5.7 % (4.0-6.0)
[2020-12-11 13:10] LABS: Culture Indicated Urine Cult Not Indicated; Squamous Epithelial Cell Urine 5-10 /HPF (0-5/HPF); WBC Urine 0-1/HPF (0-5/HPF)
[2020-12-11 13:15] LABS: BUN Creatinine Ratio 40.5 (6-22); Blood Urea Nitrogen 32 mg/dL (7-17); Calcium 10.9 mg/dL (8.4-10.2); Carbon Dioxide 24 mmol/L (22-32); Chloride 105 mmol/L (98-107); Estimated Glomerular Filt Rate > 60.0 mL/min (>60); Glucose 141 mg/dL (80-110); HEMOLYSIS < 15 (0-50); Potassium 4.8 mmol/L (3.4-5.1); Sodium 135 mmol/L (137-145)
== END ==
PROVIDERS: PCP Family Medicine; Referring Provider Orthopaedic Surgery; Visit Provider Orthopaedic Surgery
DX: Z01.818 Encounter for other preprocedural examination (principal); Z01.812 Encounter for preprocedural laboratory examination; R73.9 Hyperglycemia, unspecified; N39.0 Urinary tract infection, site not specified
CPT/HCPCS: 36415; 80048; 81001; 83036; 85025; 93005

== ENCOUNTER → 2020-12-24 11:41 | Outpatient (CLI) | payer MEDICARE, SELFPAY ==
--- NOTE | 2020-12-24 11:42 | DI.MRI.S_ITS ---
PROCEDURE: MR KNEE RT WO CON INDICATIONS: Bilateral primary osteoarthritis of knee TECHNIQUE: Noncontrast sagittal PD fast spin echo and T2 fast spin echo with fat saturation, sagittal 3-D FLASH with fat saturation; coronal T1 spin echo and PD fast spin echo with fat saturation, and axial PD fast spin echo with fat saturation through the knee. COMPARISON: [facility] [place], CR, XR KNEE ARTHRITIC SERIES BI, 10/01/2020, 8:52. FINDINGS: Image quality: Excellent. Menisci: There is peripheral displacement of medial meniscus bowing medial collateral ligament. There is suggestion of subtle oblique tear involving posterior horn of medial meniscus extending to inferior articulating surface. Nonvisualization of lateral meniscus is noted, likely represent prior meniscectomy versus chronic complex tear of the lateral meniscus. Cruciate ligaments: There is absence of normal anterior cruciate ligament suggestive of chronic ACL rupture. PCL is intact. Medial structures: Low to moderate grade MCL sprain/partial-thickness tear near its femoral insertion is seen.. The posterior oblique ligament, semimembranosus tendon insertions, oblique popliteal ligament, and meniscocapsular junction appear intact. Visualized portions of the pes anserinus tendons appear normal. No abnormal bursal fluid. Lateral structures: Moderate grade proximal LCL tear is seen. The long and short heads of the biceps femoris tendon appear intact. The popliteus tendon appears normal; the popliteofibular ligament appears intact. The posterosuperior and anteroinferior popliteomeniscal fascicles appear intact. The arcuate and fabellofibular ligaments appear intact, on either side of the lateral inferior geniculate artery. Iliotibial band appears normal. Anterior structures: The quadriceps and patellar tendons appear intact. Patellar alignment is normal. No femoral trochlear dysplasia or ventral trochlear prominence. No edema in the infrapatellar fat pad. Bones and cartilage: There is severe lateral femoral tibial compartment osteoarthritis and chondromalacia. Moderate medial femoral tibial compartment and patellofemoral compartment osteoarthritis and chondromalacia is seen. No fracture or dislocation. Joint space: There is moderate amount of joint fluid. Prominent popliteal cyst is seen measures up to 4.4 x 2.4 x 4.9 cm in size. Normal appearing synovial plicae are incidentally noted. IMPRESSION: 1. Nonvisualization of lateral meniscus suggestive of chronic complex tear versus prior meniscectomy. Oblique tear involving posterior horn of medial meniscus extending to inferior articulating surface. 2. Suggestion of chronic ACL rupture. PCL is intact. 3. Severe lateral femoral tibial compartment osteoarthritis and absence of normal articulating cartilage. Moderate osteoarthritis and chondromalacia in medial femoral tibial compartment and patellofemoral compartment. 4. Moderate joint effusion and popliteal cyst as above. 5. Low-grade proximal MCL sprain/partial-thickness tear. Moderate grade partial-thickness tear involving proximal LCL. Dictated by: Kunal Kinney M.D. on 12/24/2020 at 14:06 Approved by: Kunal Kinney M.D. on 12/24/2020 at 14:10
== END ==
PROVIDERS: PCP Family Medicine; Referring Provider Orthopaedic Surgery; Visit Provider Orthopaedic Surgery
DX: M17.0 Bilateral primary osteoarthritis of knee (principal); S83.241A Other tear of medial meniscus, current injury, right knee, initial encounter; S83.421A Sprain of lateral collateral ligament of right knee, initial encounter; S83.411A Sprain of medial collateral ligament of right knee, initial encounter; M94.261 Chondromalacia, right knee; M25.461 Effusion, right knee; M71.21 Synovial cyst of popliteal space [Baker], right knee
CPT/HCPCS: 73721

== ENCOUNTER → 2021-02-04 08:34 | Outpatient (CLI) | payer MEDICARE, SELFPAY ==
[2021-02-04 11:02] LABS: COVID19 -Nasal RAPID Negative (Negative)
== END ==
PROVIDERS: PCP Family Medicine; Visit Provider Physician Assistant
DX: Z01.812 Encounter for preprocedural laboratory examination (principal); Z20.822 Contact with and (suspected) exposure to COVID-19
CPT/HCPCS: 87635

== ENCOUNTER 2021-02-05 08:27 | Day surgery (SDC) | payer MEDICARE, SELFPAY ==
[2021-01-29 08:27] VITALS: BMI 33.5
[2021-02-05 09:21] VITALS: BP 135/71; PULSE 89; RESP 18; TEMP 37.2; O2SAT 99; BMI 33.7
[2021-02-05] MEDS: ACETAMINOPHEN 325 MG TABLET 975 MG PO (09:36)
[2021-02-05] MEDS: LACTATED RINGERS 1,000 ML 42 ML IV (09:36)
[2021-02-05] MEDS: GABAPENTIN 300 MG CAPSULE PO (09:37)
--- NOTE | 2021-02-05 11:17 | SUR.PREOP ---
pt's surgery cancelled due to high incidence of COVID in the hospital. The director and head of OR came and spoke to pt. Pt states she understands and she is feeling fine with it. Pt is very understanding and denies any complaints.
[2021-02-05 11:19] VITALS: BP 139/70; PULSE 87; RESP 18; O2SAT 99
== END 2021-02-05 11:41 | disposition home or self-care (01) ==
LOC: OR 08:29 → AC 08:29
PROVIDERS: PCP Family Medicine; Referring Provider Family Medicine; Visit Provider Orthopaedic Surgery
DX: M17.11 Unilateral primary osteoarthritis, right knee (principal); Z53.09 Procedure and treatment not carried out because of other contraindication
CPT/HCPCS: 27447

== ENCOUNTER 2021-02-10 09:31 | Inpatient (IN) | payer MEDICARE, SELFPAY ==
[2021-02-06 08:02] VITALS: BMI 33.5
[2021-02-09] VITALS (13 sets, daily range): BP systolic 134–165; BP diastolic 60–102; PULSE 80–93; RESP 10–18; TEMP 35.8–36.8; O2SAT 9–100; BMI 33.5
[2021-02-09 11:15] LABS: COVID19 -Nasal RAPID Negative (Negative)
[2021-02-09] MEDS: LACTATED RINGERS 1,000 ML 42 ML IV ×2 (11:21→14:29)
[2021-02-09] MEDS: ACETAMINOPHEN 325 MG TABLET 975 MG PO (11:22)
--- NOTE | 2021-02-09 12:00 | DI.RAD.S_ITS ---
PROCEDURE: XR KNEE RT 1TO2V INDICATIONS: RIGHT TOTAL KNEE TECHNIQUE: 2 view(s) of the knee acquired. COMPARISON: None. FINDINGS: Bones: Patient is status post knee joint arthroplasty. Hardware components are in expected positions. Visualized bony structures are intact. Soft tissues: Overlying postoperative changes are noted. Vascular calcifications indicate atherosclerosis. IMPRESSION: Expected immediate postoperative appearance of right TKA. Dictated by: Alen PRETTY Interpreted: Tim Roth MD on 02/09/2021 at 16:31 Transcribed by: SIRI on 02/09/2021 at 16:32 Approved by: Tim Roth M.D. on 02/09/2021 at 17:23
[2021-02-09] MEDS: CEFAZOLIN 1 GM VIAL 2 GM IV ×2 (13:00→20:17)
--- NOTE | 2021-02-09 13:01 | PM.PREOP ---
Pre-operative Note COVID-19 COVID-19 status: Negative Interval Note History & Physical reviewed/Exam performed by Physician: Yes Changes to H&P: No
--- NOTE | 2021-02-09 13:02 | PM.OP.1 ---
Operative Date/Time/Diagnoses Date of procedure: 02/09/21 Time of procedure: 13:30 Pre-op diagnosis: right knee OA Post-op diagnosis: same Procedure & Clinicians Procedure: Right total knee arthroplasty Same procedure as scheduled: Yes Indications: The patient has had progressively worsening right knee pain with radiographic changes consistent with arthritis. Non-operative management has failed and the patient has requested total knee replacement. The risks, benefits and alternatives to surgery were discussed with the patient prior to proceeding. Risks discussed included, but were not limited to, failure to relieve pain, stiffness, infection, nerve damage, deep venous thrombosis, pulmonary embolism, stroke, coma, heart attack, permanent paralysis and , as well as the potential need for eventual revision of the prosthetic. Surgeon: Tonia Bennett Technology Development Intern: Oneyda Serrano Anesthesia Type: General and Spinal Operative Notes Findings: Severe right knee arthritis, good stability Closure Type: primary Specimen(s): none sent Prosthetic devices, grafts, tissues, transplants, or devices: [employer] BCS 2 size 5 femur, size 5 tibia, +9 poly, 35 by 7-1/2 mm patella round Applied: drain(s) Estimated Blood Loss (mL): 250 Blood products transfused: none Tourniquet time (min): 69 Procedure in detail: The patient was seen in the pre-operative area, where the patient identified the right knee as the operative site and this was marked with my initials. The patient received pre-operative antibiotics, and was taken to the operating room and placed on the operative table in the supine position. After satisfactory anesthesia, a time recorder out was performed. The right leg was encircled with a tourniquet about the proximal thigh, and the leg was prepared from the toes to the tourniquet with ChloroPrep in the usual fashion and draped through sterile drapes. The leg was elevated and exsanguinated with Eschmark bandage and the tourniquet inflated to [250] mmHg pressure. The knee was approached through an approximately 18 cm incision centered over the patella and carried into the knee through a medial parapatellar arthrotomy. A portion of the medial and lateral meniscus was resected. Soft tissue was carefully mobilized around the patella the patella was measured with a caliper. Bone was resected from the patella and the patellar height was reconstituted with up an appropriate sized patellar component. A cover was then placed on the patella. A small amount of additional medial and lateral meniscus was resected. The visionare guide fit well to the distal femur. It looked like an appropriate distal femoral cut and the cut was made without difficulty. The rotation was assessed and the appropriate size femoral guide was placed on the distal femur and finishing cuts were made. There is no evidence of notching. The anterior, posterior and chamfer cuts were then made. The posterior osteophytes and soft tissues were then removed. The posterior capsule was injected with part of a mixture of 60 ml 0.25% Marcaine mixed with 20 ml Exparel for post operative pain control. The remainder of this mixture was injected into the capsule and subcutaneous tissues during cement curing. The tibia was prepared and the visionaire guide fit well to the distal tibia. The rotation was assessed. The patient was placed in extension residual medial and lateral meniscus as well as any residual bone was carefully resected. [No] additional tibia was resected. Hemostasis was achieved especially posteriorly. Additional local was injected into the posterior capsule. The extension gap was assessed and additional releases for gap balancing were performed as necessary. It was checked with the gap fleshing machine operator. The femoral component was trial was placed and the notch was finished. Trial tibial and femoral components were then placed and the knee placed through a range of motion. Range of motion was [0-130], with good stability throughout the range. The trials were then removed, and the tibia was finished. The bone was prepared with pulsatile lavage, and dried with a sponge. Cement was applied and the final prosthetics placed. Excess cement was removed during and after cement curing. A brief Betadine soak was performed. After confirming there was no extruded cement posteriorly, the final tibial insert was placed. The knee was copiously irrigated and the tourniquet deflated. Hemostasis was obtained with the Bovie. A drain was placed and brought out superolaterally. The capsule was closed with interrupted Vicryl suture. The subcutaneous layer was closed with barbed sutures, and the skin with a running 3-0 V-Lock suture and Surgical glue. An Aquacel Ag dressing was applied and the patient was taken to recovery having tolerated the procedure well. Complications: none Post-operative Condition: stable Disposition: Acute Care Plan for aftercare: The patient will be maintained on a standard total knee replacement protocol with weight bearing as tolerated. The patient will receive aspirin and sequential compression devices for DVT prophylaxis. The patient will be discharged home when safe for the home environment.
[2021-02-09] MEDS: VANCOMYCIN 1,000 MG/200 ML PIGGYBACK 200 MG IV (13:15)
[2021-02-09] MEDS: BUPIVACAINE 0.25% W/ EPI 30 ML VIAL 60 ML INJ (14:09)
[2021-02-09] MEDS: BUPIVACAINE LIPOSOME 266 MG/20 ML VIAL INJ (14:10)
[2021-02-09] MEDS: TRANEXAMIC ACID 1,000 MG VIAL 1000 MG INJ ×2 (14:11→15:16)
--- NOTE | 2021-02-09 14:18 | SUR.OPER ---
Supine on padded OR bed. Pillow under head, arms secured on padded armboards <90 degree abduction. Safety belt across torso. Non-operative leg secured with tape over blanket over lower leg. Operative leg secured in DeMayo/Deonte/Nathe positioner. Foam padded brace at thigh of operative leg.
[2021-02-09] MEDS: LACTATED RINGERS 1,000 ML 100 ML IV (16:45)
[2021-02-09] MEDS: INSULIN LISPRO 100 UNIT/ML 3ML VIAL 6 UNIT SUBCUT (17:25)
[2021-02-09] MEDS: ACETAMINOPHEN 325 MG TABLET 650 MG PO (20:06)
[2021-02-09] MEDS: ASPIRIN EC 81 MG TABLET PO (20:06)
[2021-02-09] MEDS: LOSARTAN 50 MG TABLET PO (20:06)
[2021-02-09] MEDS: carvediloL 12.5 MG TABLET PO (20:06)
[2021-02-09] MEDS: AMLODIPINE 5 MG TABLET PO (20:06)
[2021-02-09] MEDS: DOCUSATE 100 MG CAPSULE PO (20:06)
[2021-02-09] MEDS: MYCOPHENOLATE 360 MG 360 EACH PO (20:09)
[2021-02-09] MEDS: TACROLIMUS 0.5 MG CAPSULE 3 MG PO (20:09)
[2021-02-09] MEDS: INSULIN GLARGINE 100 UNIT/ML 3ML PEN 11 UNIT SUBCUT (21:04)
[2021-02-09] MEDS: ONDANSETRON 4 MG/2 ML INJ IV (21:14)
[2021-02-09] MEDS: OXYCODONE IR 5 MG TABLET PO (22:06)
[2021-02-10] VITALS (10 sets, daily range): BP systolic 119–150; BP diastolic 54–83; PULSE 84–93; RESP 18–20; TEMP 36.1–37.3; O2SAT 93–100
[2021-02-10] MEDS: CEFAZOLIN 1 GM VIAL 2 GM IV (04:24)
[2021-02-10] MEDS: OXYCODONE IR 5 MG TABLET PO ×2 (04:25→10:42)
[2021-02-10 05:34] LABS: Hematocrit 33.4 % (36-46); Hemoglobin 10.8 g/dL (12.0-16.0)
[2021-02-10] MEDS: ACETAMINOPHEN 325 MG TABLET 650 MG PO ×3 (08:36→20:17)
[2021-02-10] MEDS: INSULIN LISPRO 100 UNIT/ML 3ML VIAL SUBCUT ×3 (08:37→16:48)
[2021-02-10] MEDS: AMLODIPINE 5 MG TABLET PO ×2 (08:42→20:18)
[2021-02-10] MEDS: carvediloL 12.5 MG TABLET PO ×2 (08:42→20:18)
[2021-02-10] MEDS: DOCUSATE 100 MG CAPSULE PO ×2 (08:42→20:18)
[2021-02-10] MEDS: TACROLIMUS 0.5 MG CAPSULE 3.5 MG PO (08:42)
[2021-02-10] MEDS: ASPIRIN EC 81 MG TABLET PO ×2 (08:42→20:18)
[2021-02-10] MEDS: predniSONE 5 MG TABLET PO (08:44)
[2021-02-10] MEDS: LOSARTAN 50 MG TABLET PO ×2 (08:44→20:19)
--- NOTE | 2021-02-10 10:26 | PT.IIE ---
Current Diagnoses Bilateral primary osteoarthritis of knee (02/10/21) Pain in right knee (02/10/21) Surgery Performed Operation Date: 02/09/21 13:00 Actual Procedures p Total Knee Arthroplasty(Right) - Tonia Bennett MD Medical History (Last Reviewed 02/09/21 @ 14:27 by Marge Pearson RN) AV fistula Diabetes (~1995) Easy bruisability History of renal dialysis HLD (hyperlipidemia) HTN (hypertension) Kidney failure MIQUEL (obstructive sleep apnea) Osteoarthritis Overactive bladder Physical Therapy Inpatient Evaluation/Re-Eval M1 PT/OT-IP Prior Functional Status Start: 02/10/21 12:23 Freq: NEEDED Status: Active Protocol: Document 02/10/21 10:26 AB (Rec: 02/10/21 12:36 AB [id number]) Medical Review Prior Functional Status Medical History Reviewed Yes Communication able to make needs known Mobility and Gait pt stated that she is modified independent with all mobilities and ambulationw ithout AD indoors but uses either a 4WW/SPC for outdoor mobiltiy Social History Household Members none Living Arrangements House Number of Floors (Floors) One Floor Number of Stairs To Enter/Railing? 3 steps to enter with L perpendicular pole; pt stated that she hold on to the pole and handle of her storm door to get up the steps Home Environment High Toilet,Tub/Shower Home Equipment Front Wheel Walker,Four Wheel Walker,Straight Cane,Tub Transfer Bench,Hand Held Shower Additional Social History Comment pt's friend Julita will be staying to assist pt until M2 PT-IP Current Condition Start: 02/10/21 12:23 Freq: NEEDED Status: Active Protocol: Document 02/10/21 10:26 AB (Rec: 02/10/21 12:36 AB [id number]) Physical Therapy Current Condition Current Condition Evaluation Date 02/10/21 Treatment Diagnosis s/p R TKA; difficulty in walking Onset Date 02/09/21 Weight Bearing Status Weight Bearing Status Weight Bear as Tolerated Allowed Weight Bearing Amount (enter % RLE WBAT or #) (%) M3 PT-IP Subjective Start: 02/10/21 12:23 Freq: NEEDED Status: Active Protocol: Document 02/10/21 10:26 AB (Rec: 02/10/21 12:36 AB [id number]) Subjective Physical Therapy Visit Type Type Initial Evaluation Visit Start Time 10:26 Visit Stop Time 11:05 Total Visit Minutes 39 Number of GAMING CAGE CASHIER Visits 0 Physical Therapy Visit Comments Patient Comments pt is agreeable to do PT Therapy Pain Assessment Pain When Pain Assessed At Rest Pain Present Pain Present Pain Reported Location Right Knee Intensity 4 Scale Used increases to 10 with mobility Pain Management Techniques Apply Cold,Distraction, Modification of Treatment,Re- positioning,Timing of Activity with Medications M4 PT-IP Mobility and Gait Start: 02/10/21 12:23 Freq: NEEDED Status: Active Protocol: Document 02/10/21 10:26 AB (Rec: 02/10/21 12:36 AB [id number]) PT-Bed Mobility Assessment Sit to Supine Sit to Supine Standby Assistance PT-Transfer Assessment Sit to and From Stand Sit to and from Stand Moderate Assistance,1 Person Assistance,Use of Upper Extremities Equipment Transfer Assistive Device Gait Belt,Front Wheeled Walker Orthotic/Prosthetic Devices or Brace: No Transfers Transfer Destination Bed Transfer Technique ambulated using FWW Transfer Ability Level of Assist Moderate Assistance,Maximum Assistance,1 Person Assistance ,Use of Upper Extremities Comments Mobility Comments pt sitting on chair and agreed to do PT. completed heel slides prior to mobility. pt with c/o increase pain. BP in sittin/55. pt completed sit to stand mod to max A and cues and ambulated towards the bed using fWW mod to max A and cues ~ 12 ft. requires assist to stabilize RLE and prevent from buckling. cued for quads activation. c /o increase pain and dizziness . BP: 135/76. pt completed sit to supine SBA. positioned in bed. pt requested to stay on the bed. call light and table placed within reach. set up caregiver training and pt wants PT to call her friend to set up training. called Julita and will come in at ~ 2 pm today for caregiver training. Gait Assessment Gait Gait Assistance Required: Moderate Assistance,Maximum Assistance Distance (Feet) 12 Able to Maintain Weight Bearing Status Yes During Gait Assistive Devices Assistive Device Gait Belt,Front Wheeled Walker Orthotic/Prosthetic Devices or Brace: No Gait Deviations General Gait Pattern Antalgic,Decreased Stride Length,Decreased Feet Clearance,Step-to Gait Factors Limiting Gait Function Factors Limiting Gait Function Decreased Activity Tolerance, Decreased Strength,Limited Range of Motion,Pain,Poor Balance,Poor Safety Awareness Comments Gait Comments pls refer to mobility section for details PT-Balance Assessment Sitting Balance and Reactions Static Sitting Balance Ability Good Dynamic Sitting Balance Ability Good Standing Balance and Reactions Static Standing Balance Ability Fair Dynamic Standing Balance Ability Poor Device Used FWW M5 PT-IP Objective Assessments Start: 02/10/21 12:23 Freq: NEEDED Status: Active Protocol: Document 02/10/21 10:26 AB (Rec: 02/10/21 12:36 AB [email or web address]) Orientation Orientation/Cognition Level of Alertness Confusional State Orientation Name,Age,Birthday,Month,Date, Year,Day of Week,Place, Situation Language Function Ability No Deficits Noted Safety Awareness Understands Safety Issues Memory Description No Deficits Noted Gross Range of Motion Lower Extremity ROM Impairments R knee flexion: ~ 70 deg Strength Lower Extremity Strength Assessment Right Impaired Hip 3-/5 Knee 3-/5 Coordination Assessment Gross Coordination Gross Coordination WNL Sensation Assessment Sensation Gross Sensation WNL Muscle Tone Muscle Tone WNL Yes M6 PT-IP Treatment Start: 02/10/21 12:23 Freq: NEEDED Status: Active Protocol: Document 02/10/21 10:26 AB (Rec: 02/10/21 12:36 [email or web address]) Physical Therapy Treatment Exercises Exercises Heel Slides Education Education Provided Precautions,Weight Bearing Status,Post-Op Packet,Safety M7 PT-IP Assessment and Plan Start: 02/10/21 12:23 Freq: NEEDED Status: Active Protocol: Document 02/10/21 10:26 AB (Rec: 02/10/21 12:36 [email or web address]) PT Summary Assessment and Plan Potential Rehabilitation Potential Good Status of Condition at Evaluation Evolving Summary Impairments Pain,ROM,Strength,Balance, Coordination,Sensation,Tone, Cognition,Bed Mobility, Transfers,Gait,Activity Tolerance Assessment Summary pt with c/o inrease knee pain and increases to ~ 10/10 during mobility affecting mobility and activity tolerance. pt plans to go home and her friend will assist her. set up caregiver training at 2 pm today. will conitnue to assess progress. Goals Bed Mobility Goal Standby Assistance Transfer Goal Standby Assistance,Front Wheeled Walker Gait Goal Standby Assistance,Front Wheel Walker Gait Distance 150 Other Goals up/down 3 steps SPC/L pole CGA Days to Meet Goals 5 Frequency of Treatment Frequency Of Treatment Twice a Day Treatment Plan Physical Therapy Treatment Plan Bed Mobility Training,Transfer Training,Gait Training, Therapeutic Exercise,Balance Retraining,Post Op Education, Discharge Planning,Hot or Cold Pack,Neuromuscular Re-ed, Coordination Retraining,Manual Therapy Precautions Other Precautions RLE WBAT Recommendations To Nursing Amount of Assist Needed 1 Person Assist Discharge Recommendations PT Discharge Recommendations Home with 31/01 Assist Available,SNF Rehab Transportation Needs at Discharge Private Vehicle
[2021-02-10] MEDS: MYCOPHENOLATE 360 MG 360 EACH PO ×2 (11:03→20:19)
[2021-02-10] MEDS: OXYCODONE IR 10 MG TABLET PO (14:04)
--- NOTE | 2021-02-10 14:42 | PT.IPTN ---
Current Diagnoses Bilateral primary osteoarthritis of knee (02/10/21) Pain in right knee (02/10/21) Surgery Performed Operation Date: 02/09/21 13:00 Actual Procedures p Total Knee Arthroplasty(Right) - Tonia Bennett MD Physical Therapy Treatment Note M2 PT-IP Current Condition Start: 02/10/21 12:23 Freq: NEEDED Status: Active Protocol: Document 02/10/21 10:26 AB (Rec: 02/10/21 12:36 AB [id number]) Physical Therapy Current Condition Current Condition Evaluation Date 02/10/21 Treatment Diagnosis s/p R TKA; difficulty in walking Onset Date 02/09/21 Weight Bearing Status Weight Bearing Status Weight Bear as Tolerated Allowed Weight Bearing Amount (enter % RLE WBAT or #) (%) M3 PT-IP Subjective Start: 02/10/21 12:23 Freq: NEEDED Status: Active Protocol: Document 02/10/21 14:42 AB (Rec: 02/10/21 17:16 AB [id number]) Subjective Physical Therapy Visit Type Type Treatment Note Visit Start Time 14:42 Visit Stop Time 15:25 Total Visit Minutes 43 Number of RN CARDIOVASCULAR Visits 0 Physical Therapy Visit Comments Patient Comments pt is agreeable to do PT. pt' s friend is in the room for caregiver training. checked pt at ~ 2pm as scheduled for caregiver training but pt requested for PT to come back since pain meds was just given to her and needs time to take effect. checked pt back after ~ 40 min . Therapy Pain Assessment Pain When Pain Assessed At Rest Pain Present Pain Present Pain Reported Location Right Knee Intensity 7 Scale Used increases to 10/10 with mobility M4 PT-IP Mobility and Gait Start: 02/10/21 12:23 Freq: NEEDED Status: Active Protocol: Document 02/10/21 14:42 AB (Rec: 02/10/21 17:16 AB [id number]) PT-Bed Mobility Assessment Supine to Sit Supine to Sit Standby Assistance Sit to Supine Sit to Supine Standby Assistance PT-Transfer Assessment Sit to and From Stand Sit to and from Stand Contact Guard Assistance,1 Person Assistance,Use of Upper Extremities Equipment Transfer Assistive Device Gait Belt,Front Wheeled Walker Orthotic/Prosthetic Devices or Brace: No Transfers Transfer Destination Bed Transfer Technique ambulated using FWW Transfer Ability Level of Assist Minimal Assistance,1 Person Assistance,Use of Upper Extremities Comments Mobility Comments pt sitting on chair. friend in room for training. pt completed heel slides prior to mobility. educated pt's frined on how to use safety belt and how to assist pt. pt 's friend was able to put safety belt on pt. PT demonstrated on how to assist pt. friend was able to assist pt with sit to stand and ambulated pt towards the bed ~ 12 ft using FWW. pt presents with heavy UE use on FWW for support and terminal stance phase slight buckling requiring cues for quads sets. pt c/o 10/10 pain. pt completed sit to supine SBA and cues for techniques. pt rested. informed pt and pt's friend regarding concerns with stair climbing as pt currently is not able to tolerate much weight bearing on RLE with level surface ambulation using FWW. pt completed supine to sit SBA . completed single leg stance on RLE and pt tolerate 5 sec with min A and FWW support. pt stated that she feels like her LE is going to give out. Pt's friend asked regarding SNF rehab. informed pt and friend that PT will inform the case assistant. pt requested to just go back to bed. completed sit to supine SBA. positioned in bed . call light and table placed within reach. informed case assistant Stacia regarding pt's mobility and pt 's friend inquiry regarding SNF rehab for pt. Gait Assessment Gait Gait Assistance Required: Minimum Assistance,1 Person Assist Distance (Feet) 12 Able to Maintain Weight Bearing Status Yes During Gait Assistive Devices Assistive Device Gait Belt,Front Wheeled Walker Orthotic/Prosthetic Devices or Brace: No Gait Deviations General Gait Pattern Decreased Stride Length, Decreased Feet Clearance,Step- to Gait Factors Limiting Gait Function Factors Limiting Gait Function Decreased Activity Tolerance, Decreased Strength,Limited Range of Motion,Pain,Poor Balance,Poor Safety Awareness M5 PT-IP Objective Assessments Start: 02/10/21 12:23 Freq: NEEDED Status: Active Protocol: Document 02/10/21 10:26 AB (Rec: 02/10/21 12:36 AB [id number]) Orientation Orientation/Cognition Level of Alertness Confusional State Orientation Name,Age,Birthday,Month,Date, Year,Day of Week,Place, Situation Language Function Ability No Deficits Noted Safety Awareness Understands Safety Issues Memory Description No Deficits Noted Gross Range of Motion Lower Extremity ROM Impairments R knee flexion: ~ 70 deg Strength Lower Extremity Strength Assessment Right Impaired Hip 3-/5 Knee 3-/5 Coordination Assessment Gross Coordination Gross Coordination WNL Sensation Assessment Sensation Gross Sensation WNL Muscle Tone Muscle Tone WNL Yes M6 PT-IP Treatment Start: 02/10/21 12:23 Freq: NEEDED Status: Active Protocol: Document 02/10/21 14:42 AB (Rec: 02/10/21 17:16 AB [id number]) Physical Therapy Treatment Education Education Provided Safety M7 PT-IP Assessment and Plan Start: 02/10/21 12:23 Freq: NEEDED Status: Active Protocol: Document 02/10/21 14:42 AB (Rec: 02/10/21 17:16 AB [id number]) PT Summary Assessment and Plan Potential Rehabilitation Potential Fair Summary Impairments Pain,ROM,Strength,Balance, Coordination,Sensation,Tone, Cognition,Bed Mobility, Transfers,Gait,Activity Tolerance Progress Towards Goals Slow Progress due to Pain,Slow Progress due to Activity Tolerance Assessment Summary pt requiring min A with ambulation using FWW and unable to tolerate much activity due to c/o 10/10 pain with mobility. caregiver training conducted but due to pt's decrease activity tolerance was not able to mobilize much. will conduct caregiver training again tomorrow @ 10 am. pt presents with increase UE use on FWW for support during ambulation, slight buckling of R knee during terminal stance phase and is not appropriate for stair climbing training at this time. will continue to assess progress. Goals Bed Mobility Goal Standby Assistance Transfer Goal Standby Assistance,Front Wheeled Walker Gait Goal Standby Assistance,Front Wheel Walker Gait Distance 150 Other Goals up/down 3 steps SPC/L pole CGA Days to Meet Goals 5 Frequency of Treatment Frequency Of Treatment Twice a Day Treatment Plan Physical Therapy Treatment Plan Bed Mobility Training,Transfer Training,Gait Training, Therapeutic Exercise,Balance Retraining,Post Op Education, Discharge Planning,Hot or Cold Pack,Neuromuscular Re-ed, Coordination Retraining,Manual Therapy Precautions Other Precautions RLE WBAT Recommendations To Nursing Amount of Assist Needed 1 Person Assist Discharge Recommendations PT Discharge Recommendations Home with 24/ Assist Available,Home Health,SNF Rehab,Home vs SNF Transportation Needs at Discharge Private Vehicle,Wheelchair/ Cabulance
--- NOTE | 2021-02-10 15:24 | PM.PNPO.1 ---
Subjective Subjective Date Patient Seen: 02/10/21 Time Patient Seen: 15:24 Interval history: Pain is severe. Denies fever chills. No nausea vomiting. Exam Vital Signs (past 8 hours): - 02/10/21 08:00 02/10/21 08:42 02/10/21 08:44 Temperature 97 F L Pulse Rate 87 86 86 Respiratory Rate 18 Blood Pressure 143/83 H 140/69 140/69 Pulse Oximetry 100 02/10/21 11:58 02/10/21 15:20 Temperature 97.4 F L 96.9 F L Pulse Rate 84 85 Respiratory Rate 18 20 Blood Pressure 119/54 L 150/73 H Pulse Oximetry 97 98 Oxygen Delivery Method Room Air Oxygen Flow Rate 0 Narrative Exam Narrative: Pleasant 75-year-old female resting comfortably in bed in no apparent distress. Dressing is Clean, dry, intact.. Neurovascular status intact bilateral lower extremities. Objective Labs Result Diagrams: 02/10/21 05:25 Labs: Laboratory Results - last 24 hr 02/10/21 05:25 Hgb 10.8 L Hct 33.4 L PFSH Medical History AV fistula Diabetes (~1995) Easy bruisability History of renal dialysis HLD (hyperlipidemia) HTN (hypertension) Kidney failure MIQUEL (obstructive sleep apnea) Osteoarthritis Overactive bladder Surgical History History of hysterectomy History of kidney transplant (2018) Hx of bilateral cataract extraction Hx of dilation and curettage Social History household members: none Smoking Status: Never smoker alcohol intake: former Assessment & Plan Post-op Postoperative Procedures: Procedures Operation Date: 02/09/21 13:00 Actual Procedure Side Surgeon p Total Knee Arthroplasty Right Tonia Bennett MD Postoperative status narrative: Stable status total knee arthroplasty. Postoperative plan narrative: Weight-bearing as tolerated right lower extremity. Maintained on standard total knee protocol. Aspirin for DVT prophylaxis. Continue to work on pain control. Patient currently 1 person assist physical therapy has recommended 20 for 7 home assistance and or possible long-term facility. Patient will work with physical therapy tomorrow. Disposition home tomorrow.
--- NOTE | 2021-02-10 15:31 | PC.NURSE ---
A&Ox4, HTN - BP elevated 150/ 73. Pain increased to 9/10 this afternoon, PRN oxycodone dose was increased to a 10 mg dose which seemed to provide a bit more relief to 6/10 pain. Working with physical therapy and sitting up in chair this shift. Drain pulled by the provider. Ever wrap dressing cdi. Call light within reach, bed low.
--- NOTE | 2021-02-10 16:15 | CM.DANOTE ---
DCP/Assessment: Reviewed chart. Patient is a 87yr old female admitted to [facility] for elective right TKA done on 02-09-[address] Bennett. PCP is Dr. Cevallos. Primary payor is 1)Medicare 2)[facility]. Met with patient this afternoon explained CM/SW role. Patient with complaints of pain today. Patient seen by therapy and patient progressing slowly due to pain. Patient reports that she prefers to d/c home when stable. Patient has friend staying with her from [place]. Patient reports that she has all need DME and outpatient therapy arranged. Caregiver training scheduled tomorrow at 10:00AM. MULTIMEDIA PROGRAMMER recommends coordinating pain medication with PT visit. RESIDENTIAL TREATMENT SPECIALIST notified and reports that she will pass on to RN. MULTIMEDIA PROGRAMMER to follow up tomorrow 02-11-21. P: Pending. Patient hopeful she will be able to d/c home when stable. DAYANARA Laniez Discharge Planning/Care Management CM Discharge Assessment Start: 02/10/21 16:08 Freq: Status: Active Protocol: Document 02/10/21 16:08 KJS (Rec: 02/10/21 16:15 KJS [id number]) Discharge Planning Assessment Assigned Dip Filler DAYANARA Lainez Contact Information Jessica Perez (friend) # [phone] Advance Directives? Yes Advance Directives on File No History Provided By Patient,Medical Record Prior Living Arrangements House Household Members none Type of transporation used prior to Relies on Others admit Independent with ADL's No Is patient alert and oriented? Yes Caregiver for Another No DME Already Rented / Owned FWW / Walker,Cane Patient/Family Preference OP PT Therapy Barriers to Discharge No Discharge Plan Home Transportation Arrangement Friend or family can provide transport. Referrals Initiated Other Additional Comment Pending patient status. Patient prefers to d/c home with supportive friend. Patient has outpatient therapy confirmed. Whiteboard Updated in Patient Room with Yes name and ext. # of Dip Filler Review Status In Process Next Review Type Continued Stay Review Pre-Anesthesia Assessment Start: 02/06/21 08:02 Freq: Status: Active Protocol: Document 02/06/21 08:02 CAB (Rec: 02/06/21 08:09 CAB [id number]) Pre-Anesthesia Assessment PAC Comment Previous surgery 02/05/21 cancelled due to hospital capacity full. PAC phone assessment 01/29/21 applied to this review. Preferred Name Gina Patient Information Reviewed Via Chart Review,Phone Assessment Assessment Completed With Patient Diagnostic Results BMP/CMP,CBC,EKG,Urinalysis Comment Labs/EKG @ 12/11/20 Primary Care Provider Octavio Cevallos Seen Specialist in Last 12 Months Yes Specialist Seen Fibre Technologist,Property Management Assistant, Transportation Analyst,Orthopedist Comment Nephrology, Endocrinology visits scanned Primary Language [place] Select Banker Required No Height 170.18 cm Weight 97.069 kg Body Mass Index (BMI) 33.5 Hearing Ability Normal Visual Assist Magnifying Glass Dentition Type Teeth, Natural Present,Teeth, Missing Barriers to Learning None Hx Anesthesia Reactions Yes: PONV, I come out of anesthesia hard, not combative Additional comment MIQUEL, Does not wear CPAP, has lost weight since diagnosis Hx Family Anesthesia Reaction No Hx Malignant Hyperthermia No Hx Blood Transfusions No Anesthesia Review Requested No alcohol intake former Smoking Status Never smoker Substance Use Type does not use Pain Present Pain Reported Musculoskeletal Symptoms Abnormal Gait,Difficulty Walking,Joint Pain History of Falling (Recent or History of No ) Patient is completely paralyzed or No completely immobile Prosthesis or Orthotic Device Cane,Front Wheel Walker Mental Status Oriented to own ability Is patient on oxygen? No Does patient have MARTINEZ/SOB Yes: MARTINEZ Hx Sleep Apnea Yes: Does not wear CPAP, has lost weight since diagnosis CPAP/BIPAP use prescribed not used Currently Taking a Beta Sona No Can You Climb a Flight of Stairs Without No SOB Hx Chest Pain No Hx SOB Yes: MARTINEZ Hx Syncope or Dizziness Yes Anti-Coagulant Therapy No Has a Recordak Operator No Cardiac Testing No Hx Pacemaker/ICD No Pacemaker Rep Required? No Cardiac Clearance Received Not Applicable Diet Type At Home Regular,Ketogenic dysphagia No Bladder Pattern Incontinent Urinary Catheter Present No Hx Urinary Self Catheterization No Diabetes Yes Patient No Lactating No Presence of External or Internal Medical Yes: Bilat eyes, fistula right Devices arm, continious glucose monitor Have you had any close contact with No someone diagnosed with COVID-19? Marital Status Lives With none Prior Living Arrangements House Number of Floors (Floors) One Floor Support System Friend(s) Does the Patient Have Assistance After Yes: Friend (retired RN) Surgery flying in to stay w/pt to assist @DC Patient Discharge Plan Description Return Home Comment Pt advised overnight length of stay per surgeon Feels Safe in Current Environment Yes Been Physically Hurt or Threatened By a No Person in Current Environment Do you have thoughts of harming yourself None or others? Are you currently considering suicide? No Do you have a plan to hurt yourself or No Plan others? Do You Have Any Spiritual Beliefs That No May Affect Your HC Choices? Do You Have Any Cultural Practices That No May Affect Your HC Choices? Comment Taoist Who Can We Speak to About Patient's Care Family, friends Identifying Code for Release of Patient Declines to issue Information Health Care Proxy/Next of Kin Julita (good friend) Health Care Proxy Emergency Contact Name Julita (good friend) Emergency Contact Advance Directives? Yes Advance Directives on File No Power of Housefellow No PAC Instructions Diabetes instructions,Do not shave/clip surgical site, Durable medical equipment, Medications to take/avoid, Nasal antibiotic,No ETOH/ petroleum product on skin DOS, NPO,Post-op transportation,Pre -surgical wash,Sturdy shoes/ comfortable clothes,Do not bring valuables and remove jewelry
[2021-02-10] MEDS: HYDROMORPHONE 2 MG TABLET PO ×2 (18:23→21:51)
[2021-02-10] MEDS: TACROLIMUS 0.5 MG CAPSULE 3 MG PO (20:18)
[2021-02-10] MEDS: INSULIN GLARGINE 100 UNIT/ML 3ML PEN 11 UNIT SUBCUT (20:31)
[2021-02-11] MEDS: HYDROMORPHONE 2 MG TABLET PO ×5 (00:51→12:30)
[2021-02-11 03:35] VITALS: BP 144/63; PULSE 89; RESP 14; TEMP 37.4; O2SAT 94
[2021-02-11 07:16] VITALS: BP 155/70; PULSE 87; RESP 17; TEMP 37; O2SAT 97
[2021-02-11] MEDS: INSULIN LISPRO 100 UNIT/ML 3ML VIAL SUBCUT ×2 (07:44→12:11)
[2021-02-11] MEDS: MYCOPHENOLATE 360 MG 360 EACH PO (08:02)
[2021-02-11] MEDS: AMLODIPINE 5 MG TABLET PO (08:04)
[2021-02-11] MEDS: carvediloL 12.5 MG TABLET PO (08:04)
[2021-02-11] MEDS: LOSARTAN 50 MG TABLET PO (08:04)
[2021-02-11] MEDS: TACROLIMUS 0.5 MG CAPSULE 3.5 MG PO (08:05)
[2021-02-11] MEDS: ASPIRIN EC 81 MG TABLET PO (08:05)
[2021-02-11] MEDS: predniSONE 5 MG TABLET PO (08:05)
[2021-02-11] MEDS: DOCUSATE 100 MG CAPSULE PO (08:05)
[2021-02-11] MEDS: ACETAMINOPHEN 325 MG TABLET 650 MG PO (08:05)
--- NOTE | 2021-02-11 08:31 | PC.NURSE ---
Assess- Patient is alert and oriented x3, she is pleasant and cooperative. She likes to have things done in a particular way. She has an aquacel to her r.knee that is cdi, patient has 3-4+ pitting edema to her r.leg and 3+ to her left leg. She wears no hose and she has one to the l leg. Surgeon and patient would like us to try and put her other stocking on the r.leg after breakfast. She has her own glucose machine that reads her numbers, this morning it was 193 and she chose to have 8u of insulin that was given in her r.upper arm. Patient is now taking po dilaudid for her knee pain and she states that this is helping her, she will be due again at 0930. She has not passed gas and patient will be getting up with physical therapy this am. Will medicate before she works with them. Eating her breakfast now and has no complaints at this time.
--- NOTE | 2021-02-11 11:47 | PT.IPTN ---
Current Diagnoses Bilateral primary osteoarthritis of knee (02/10/21) Pain in right knee (02/10/21) Surgery Performed Operation Date: 02/09/21 13:00 Actual Procedures p Total Knee Arthroplasty(Right) - Tonia Bennett MD Physical Therapy Treatment Note M2 PT-IP Current Condition Start: 02/10/21 12:23 Freq: NEEDED Status: Active Protocol: Document 02/10/21 10:26 AB (Rec: 02/10/21 12:36 AB [id number]) Physical Therapy Current Condition Current Condition Evaluation Date 02/10/21 Treatment Diagnosis s/p R TKA; difficulty in walking Onset Date 02/09/21 Weight Bearing Status Weight Bearing Status Weight Bear as Tolerated Allowed Weight Bearing Amount (enter % RLE WBAT or #) (%) M3 PT-IP Subjective Start: 02/10/21 12:23 Freq: NEEDED Status: Active Protocol: Document 02/11/21 10:35 SP (Rec: 02/11/21 14:38 SP [id number]) Subjective Physical Therapy Visit Type Type Treatment Note Visit Start Time 10:35 Visit Stop Time 11:47 Total Visit Minutes 77 Notes Friend completed caregiver training, provided physical assist required throughout tx and cuing for positioning and how to support pt when needed. Pt required extra time throughout tx due to pain and decreased strength and activity tolerance. Number of CLERK GUIDE Visits 1 Physical Therapy Visit Comments Patient Comments Pt is agreeable to working with therapy. Therapy Pain Assessment Pain When Pain Assessed At Rest Pain Present Pain Present Pain Reported Location Right Knee Scale Used no pain scale quantified increased with mobility, premedicated 1 hr. Pain Management Techniques Modification of Treatment,Re- positioning,Timing of Activity with Medications M4 PT-IP Mobility and Gait Start: 02/10/21 12:23 Freq: NEEDED Status: Active Protocol: Document 02/11/21 10:35 SP (Rec: 02/11/21 14:38 SP [id number]) PT-Bed Mobility Assessment Supine to Sit Supine to Sit Standby Assistance Sit to Supine Sit to Supine Standby Assistance Scooting Scooting to Edge of Bed Standby Assistance PT-Transfer Assessment Sit to and From Stand Sit to and from Stand Contact Guard Assistance,1 Person Assistance,Use of Upper Extremities Equipment Transfer Assistive Device Gait Belt,Front Wheeled Walker Orthotic/Prosthetic Devices or Brace: No Transfers Transfer Destination Bed,Chair,Toilet,Wheelchair Transfer Technique ambulated using FWW Transfer Ability Level of Assist Contact Guard Assistance,1 Person Assistance,Use of Upper Extremities Comments Mobility Comments Pt was in bathrooom when arrived, friend in room stated nursing will be back to assist her. Friend assisted during bathroom transfer CGA- Ashley w/ use of grab bar sit> stand from toilet (noted gait belt was donned), pt ambulated to chair and CG- Min A for slow descent into chair. Sit> stand from chair CGA- MIn A using FWW, walked around bed and sat on elevated bed to assimulate 27 height needed to get into her vechicle that her friend is driving. Pt was able to scoot back and repositioning BLE individually into bed with use go gait belt, assist as needed for donning belt on each foot. sit <>supine with HOB flat, scoot to EOB SBA. Sit> stand from EOB using FWW, walked to wc in jc 10 ft CGA cued for back step fully and slow descent to w/c CG- 5% A. Therapist pushed pt down to stairs. Pt completed ascend/ descend 3 stair using L HR and SPC on RUE with friend ALUTIIQ stabilizing SPC CGA, cued as needed for sequencing. Pt required seated rest due to little dizzy and tiring, CGA sitting into wc after stair mgt. Pt declined further distance gait in hallway, was wheeled back to room. Sit> stand CGA w/ use of FWW, walked 5 ft and pivoted back up to chair and stand>sit into chair CGA. Assisted elevating BLE in chair with upright back rest. Pt had call light and all needs in reach with friend in room when left. Gait Assessment Gait Gait Assistance Required: Minimum Assistance,1 Person Assist Distance (Feet) 10 Able to Maintain Weight Bearing Status Yes During Gait Assistive Devices Assistive Device Gait Belt,Front Wheeled Walker Orthotic/Prosthetic Devices or Brace: No Gait Deviations General Gait Pattern Decreased Stride Length, Decreased Feet Clearance,Step- to Gait Factors Limiting Gait Function Factors Limiting Gait Function Decreased Activity Tolerance, Decreased Strength,Limited Range of Motion,Pain,Poor Balance Comments Gait Comments Pt ambulated with heavy WB through BUE on FWW step to gait patterning, min cuing for quad facilitation during RLE WB due to little unsteady and decrease risk for buckling, improve some as gait and stair mgt activities. Stair Climbing Assessment Evaluation Level of Assist On Stairs Contact Guard Assistance, Minimal Assistance,1 Person Assistance Devices Stair Climbing Assistive Devices Straight Cane,Left Railing Technique/Endurance Stair Climbing Direction Ascend and Descend Stair Climbing Technique Step to Step Number of Steps Climbed 3 Stair Climbing Set # Repetitions (reps) 1 Comments Stair Climbing Comments Step to patterning, using L HR and SPC in RUE, friend stabilized SPC ALUTIIQ CG/ Min, min cues for sequencing from CLERK GUIDE> friend. PT-Balance Assessment Sitting Balance and Reactions Static Sitting Balance Ability Good Dynamic Sitting Balance Ability Good Standing Balance and Reactions Static Standing Balance Ability Fair Dynamic Standing Balance Ability Poor Device Used FWW M5 PT-IP Objective Assessments Start: 02/10/21 12:23 Freq: NEEDED Status: Active Protocol: Document 02/10/21 10:26 AB (Rec: 02/10/21 12:36 AB [id number]) Orientation Orientation/Cognition Level of Alertness Confusional State Orientation Name,Age,Birthday,Month,Date, Year,Day of Week,Place, Situation Language Function Ability No Deficits Noted Safety Awareness Understands Safety Issues Memory Description No Deficits Noted Gross Range of Motion Lower Extremity ROM Impairments R knee flexion: ~ 70 deg Strength Lower Extremity Strength Assessment Right Impaired Hip 3-/5 Knee 3-/5 Coordination Assessment Gross Coordination Gross Coordination WNL Sensation Assessment Sensation Gross Sensation WNL Muscle Tone Muscle Tone WNL Yes M6 PT-IP Treatment Start: 02/10/21 12:23 Freq: NEEDED Status: Active Protocol: Document 02/11/21 10:35 SP (Rec: 02/11/21 14:38 SP [id number]) Physical Therapy Treatment Education Education Provided Weight Bearing Status,Safety M7 PT-IP Assessment and Plan Start: 02/10/21 12:23 Freq: NEEDED Status: Active Protocol: Document 02/11/21 10:35 SP (Rec: 02/11/21 14:38 SP [id number]) PT Summary Assessment and Plan Potential Rehabilitation Potential Fair Status of Condition at Evaluation Evolving Summary Impairments Pain,ROM,Strength,Balance, Coordination,Sensation,Tone, Cognition,Bed Mobility, Transfers,Gait,Activity Tolerance Progress Towards Goals Slow Progress due to Pain,Slow Progress due to Activity Tolerance Assessment Summary Pt required CG- Min A sit<> stand, CGA gait and stairs using FWW. Pt required increase time to complete activities due to decreased strength and activity tolerance. Pt is ok to return home when medically cleared with friend to assist her 31/01 assist. Pt stated is set up for outpt therapy. Goals Bed Mobility Goal Standby Assistance Transfer Goal Standby Assistance,Front Wheeled Walker Gait Goal Standby Assistance,Front Wheel Walker Gait Distance 150 Other Goals up/down 3 steps SPC/L pole CGA Days to Meet Goals 5 Frequency of Treatment Frequency Of Treatment Twice a Day Treatment Plan Physical Therapy Treatment Plan Bed Mobility Training,Transfer Training,Gait Training, Therapeutic Exercise,Balance Retraining,Post Op Education, Discharge Planning,Hot or Cold Pack,Neuromuscular Re-ed, Coordination Retraining,Manual Therapy Other Recommendations and Next Treatment LE ex, gait further distance w Focus / FWW. Precautions Other Precautions RLE WBAT Recommendations To Nursing Amount of Assist Needed 1 Person Assist Discharge Recommendations PT Discharge Recommendations Home with 31/01 Assist Available,Home Health Transportation Needs at Discharge Private Vehicle,Wheelchair/ Cabulance
--- NOTE | 2021-02-11 14:46 | PT-IP ANOTE ---
FIELD SUPPORT SPECIALIST checked in pm if pt had any further needs, pt discharged home before FIELD SUPPORT SPECIALIST arrival.
--- NOTE | 2021-02-13 13:12 | PM.DS.1 ---
History of Present Illness History of Present Illness Date Patient Seen: 02/13/21 Time Patient Seen: 13:14 Chief complaint: RIGHT TKA Narrative: 75-year-old with severe right knee osteoarthritis and a history of a renal transplant. Multiple medical problems scheduled for right total knee arthroplasty with the plan for inpatient admission. Discharge Providers Provider Date of admission: 02/10/21 09:31 Discharge Date: 02/11/21 Primary care physician: Octavio Cevallos MD Consults: 02/09/21 06:30 Consult to Anesthesiology Routine Comment: Consulting Provider: Anesthesiologist Reason for consultation: Regional block for post operative pain control 02/09/21 11:13 Consult to Respiratory Therapy Evaluate & Treat Comment: Physician Instructions: Evaluate and treat 02/09/21 16:38 Consult to Discharge Planning Routine Comment: Consult to Physical Therapy Evaluate & Treat Comment: Physician Instructions: postop TKA protocol Consult to Respiratory Therapy Evaluate & Treat Comment: Physician Instructions: Evaluate and treat Discharge provider: Tonia Bennett MD Summary Hospital Course Discharge Diagnosis: Severe right knee OA, right total knee arthroplasty Hospital Course: She has taken the operating room she underwent a right total knee arthroplasty. She had substantial issues with pain control postoperatively but was mobilized with physical therapy and had adequate pain control on oral medications at the time of discharge. Status at Discharge Cognitive/behavioral status at discharge: oriented Functional status at discharge: uses cane/walker Overall status at discharge: patient is progressing back to baseline Time Spent with Patient Time spent: Less than 30 minutes Exam Vital Signs (past 8 hours): Oxygen Delivery Method Room Air Oxygen Flow Rate 0 Narrative Exam Narrative: Alert oriented resting comfortably in bed, moderate to severe right knee pain with range of motion, dressing intact, calf soft bilaterally, minimal pain with gentle range of motion in the hips Objective Labs Result Diagrams: 02/10/21 05:25 [facility] Medical History AV fistula Diabetes (~1995) Easy bruisability History of renal dialysis HLD (hyperlipidemia) HTN (hypertension) Kidney failure MIQUEL (obstructive sleep apnea) Osteoarthritis Overactive bladder Surgical History History of hysterectomy History of kidney transplant (2019) Hx of bilateral cataract extraction Hx of dilation and curettage Social History household members: none Smoking Status: Never smoker alcohol intake: former Discharge Assessment & Plan Assessment and Plan Assessment: Doing well status post total knee arthroplasty. Plan of Treatment: Discharge to home. Progress weight-bearing as tolerated on the right lower extremity and get started in physical therapy. Discharge Plan Discharge Plan Patient Disposition: Home Discharge orders & Medications Prescriptions: New polyethylene glycol 3350 17 gram Powder In Packet 17 gm PO DAILY PRN (Reason: Constipation) Qty: 30 RF: 0 aspirin 81 mg Tablet,Delayed Release (Dr/Ec) 81 mg PO BID Qty: 90 RF: 0 hydromorphone 2 mg Tablet 2 mg PO Q3H PRN (Reason: Pain, Severe (7-10)) Qty: 40 RF: 0 Continued losartan 50 mg Tablet 50 mg PO BID RF: 0 carvedilol 6.25 mg Tablet 12.5 mg PO BID RF: 0 prednisone 5 mg Tablet 5 mg PO DAILY RF: 0 amlodipine 5 mg Tablet 5 mg PO BID RF: 0 aspirin 81 mg Tablet,Delayed Release (Dr/Ec) 81 mg PO DAILY RF: 0 acetaminophen 500 mg Tablet 1,000 mg PO BEDTIME PRN (Reason: Pain) RF: 0 tacrolimus 1 mg Capsule See Rx Instructions .ROUTE .COMPLEX RF: 0 insulin lispro [Humalog KwikPen Insulin] 100 unit/mL Insulin Pen 6 - 9 unit SUBCUT TID RF: 0 mycophenolate sodium 360 mg Tablet,Delayed Release (Dr/Ec) 360 mg PO BID RF: 0 Lantus Solostar U-100 Insulin 100 unit/mL (3 mL) Insulin Pen 11 unit SUBCUT BEDTIME RF: 0 Trulicity 1.5 mg/0.5 mL Pen Injector 1.5 mg SUBCUT QWEEK RF: 0 magnesium oxide 400 mg magnesium Tablet 400 mg PO DAILY RF: 0 lysine 1,000 mg Tablet 1,000 mg PO DAILY RF: 0 Medication counseling provided by Pharmacist: Yes Follow up/Referrals: Octavio Cevallos MD [Primary Care Provider] - Visit Report/Discharge Packet Instructions: DI for Knee Replacement, How to Prevent Falls, Hydromorphone Discharge Data Primary Care Provider: Octavio Cevallos
== END 2021-02-11 14:30 | disposition home or self-care (01) | DRG 470 ==
LOC: OR 09:41 → AC 09:41
PROVIDERS: Admitting Provider Orthopaedic Surgery; PCP Family Medicine; Referring Provider Family Medicine; Visit Provider Orthopaedic Surgery
PROC: 0SRC0JZ Replacement of Right Knee Joint with Synthetic Substitute, Open Approach (ICD-10-PCS; CPT 27447; principal; 2021-02-09 13:00)
DX: M17.11 Unilateral primary osteoarthritis, right knee (principal); Z94.0 Kidney transplant status; I10 Essential (primary) hypertension; E11.9 Type 2 diabetes mellitus without complications; Z79.4 Long term (current) use of insulin
CPT/HCPCS: 36415; 73560; 82962; 85014; 85018; 87635; 94760; 97116; 97162; 97530; C1776; C9803; C9290; J0690; J1100; J1815; J2274; J2405; J2704; J3010; J7507

== ENCOUNTER → 2021-02-18 11:50 | Outpatient (CLI) | payer MEDICARE, SELFPAY ==
[2021-02-09 19:00] VITALS: BMI 33.5
--- NOTE | 2021-02-18 | DI.US.S_ITS ---
PROCEDURE: US PERIPH VENOUS LOW EXTREM RT INDICATIONS: Presence of right artificial knee joint TECHNIQUE: Real-time imaging, as well as color and pulse Doppler interrogation, were performed of the lower extremity deep veins from the inguinal ligament to the popliteal fossa. COMPARISON: [facility], CR, XR KNEE 4+ VIEWS RIGHT, 02/18/2021, 10:58. FINDINGS: The common femoral, femoral and popliteal veins are normally compressible, and free of intraluminal thrombus. Color and pulse Doppler demonstrate normal phasic intraluminal flow. There is normal augmentation response to distal compression maneuver. A complex fluid collection is seen within the medial posterior knee, which measures 5.2 x 1.7 x 2.9 cm. IMPRESSION: Negative for deep venous thrombosis. Complex Quezada's cyst versus hematoma seen within the posterior/medial knee. Dictated by: Errol Johnson M.D. on 02/18/2021 at 11:56 Approved by: Errol Johnson M.D. on 02/18/2021 at 11:57
== END ==
PROVIDERS: PCP Family Medicine; Referring Provider Orthopaedic Surgery; Visit Provider Orthopaedic Surgery
DX: Z09 Encounter for follow-up examination after completed treatment for conditions other than malignant neoplasm (principal); Z96.651 Presence of right artificial knee joint
CPT/HCPCS: 93971

== ENCOUNTER 2021-06-02 17:29 | Inpatient (IN) | payer MEDICARE, SELFPAY ==
[2021-02-09 19:00] VITALS: BMI 33.5
[2021-06-02] VITALS (13 sets, daily range): BP systolic 129–171; BP diastolic 58–90; PULSE 77–87; RESP 16–37; TEMP 36.2–37.7; O2SAT 94–99; BMI 33.6
--- NOTE | 2021-06-02 17:37 | DI.RAD.S_ITS ---
PROCEDURE: XR CHEST 1V INDICATIONS: suspected sepsis TECHNIQUE: One view of the chest was acquired. COMPARISON: None. FINDINGS: Surgical changes and devices: Monitoring device is noted overlying the right lower lobe obscuring portions of VELIA a boyd. Lungs and pleura: There is an overall appearance of coarsening within the bases bilaterally, left greater than right. Mediastinum: Mediastinal contours appear normal. Heart size is normal. Bones and chest wall: No suspicious bony lesions. Overlying soft tissues appear unremarkable. IMPRESSION: Bilateral coarsening as above. While this could represent dependent change, developing airspace disease such as pneumonia cannot be excluded. Dictated by: Lucrecia Kruger M.D. on 06/02/2021 at 18:32 Approved by: Lucrecia Kruger M.D. on 06/02/2021 at 18:33
[2021-06-02 17:55] LABS: Add Manual Diff / Slide Review NO; Basophils Absolute Auto 0 /uL (0-100); Basophils Percent Auto 0.3 % (0-2); Eosinophils Absolute Auto 0 /uL (0-450); Hematocrit 35.5 % (36-46); Hemoglobin 11.7 g/dL (12.0-16.0); Lymphocytes Absolute Auto 400 /uL (1100-4500); Lymphocytes Percent Auto 2.4 % (25-40); Mean Corpuscular HGB Conc 32.9 % (30-36); Mean Corpuscular Hemoglobin 29.4 PG (26-34); Mean Corpuscular Volume 89.4 fL (80-100); Monocytes Absolute Auto 1500 /uL (0-900); Monocytes Percent Auto 9.6 % (3-14); Neutrophils Absolute Auto 13300 /uL (1500-7000); Neutrophils Percent Auto 87.7 % (50-75); Platelet Count 194 X10^3/uL (150-400); Red Blood Cell Count 3.97 X10^6/uL (4.0-5.2); Red Cell Distribution Width 13.8 % (11.6-14.8); White Blood Cell Count 15.2 X10^3/uL (4.5-11.0)
[2021-06-02 18:06] LABS: INR 1.1 (0.9-1.3); Prothrombin Time 12.5 SECONDS (10.1-12.7)
[2021-06-02 18:09] LABS: PTT Partial Thromboplastin Tim 30 SECONDS (26.4-36.2)
[2021-06-02 18:11] LABS: Lactate (Lactic Acid) 1.6 mmol/L (0.7-2.1)
[2021-06-02 18:12] LABS: Alanine Aminotransferase 19 IU/L (<35); Albumin Globulin Ratio 1.5 (1.0-2.8); Alkaline Phosphatase 63 U/L (38-126); Aspartate Aminotransferase 23 IU/L (14-36); BUN Creatinine Ratio 33.3 (6-22); Bilirubin Total 0.9 mg/dL (0.2-1.3); Blood Urea Nitrogen 34 mg/dL (7-17); Calcium 9.9 mg/dL (8.4-10.2); Carbon Dioxide 20 mmol/L (22-32); Chloride 103 mmol/L (98-107); Creatine Kinase 42 U/L (30-135); Estimated Glomerular Filt Rate 52.8 mL/min (>60); Globulin 2.6 g/dL (1.7-4.1); Glucose 287 mg/dL (80-110); HEMOLYSIS 21 (0-50); Lipase 27 U/L (23-300); Sodium 132 mmol/L (137-145); Total Protein 6.6 g/dL (6.3-8.2)
--- NOTE | 2021-06-02 18:21 | ED.SEPSIS ---
HPI - Sepsis General Chief Complaint: Fever Mode of arrival: EMS Source: patient and EMS Limitations: no limitations Evaluation Sepsis Screen: No Definite Risk Sepsis Infection Criteria Present: None Narrative: Patient is a 75-year-old female has history of diabetes, hypertension, hyperlipidemia, lower extremity edema, renal transplant secondary to diabetes and hypertension his in 2019 presenting today from clinic with UTI syncopal episode. She states that yesterday she was feeling is at her normal self, but today she has had fever, chills, and felt like she has had a UTI. She has had many UTIs the past this felt similar. She went to her primary care provider's office where she had a near syncopal episode. She was trying to get up on the table daughter states that she got very stiff, briefly passed out, vomited bile. Patient has no recollection of it. No focal deficits no numbness tingling or weakness. She has no chest pain or palpitations. She does not remember any of it is she is feeling better now. Review of Systems Review of Systems ROS Unobtainable: All systems reviewed & are unremarkable except as noted in HPI and below Constitutional Constitutional: Reports as per HPI, Reports body ache(s), Reports chills, Reports fever(s), Denies headache(s) and Reports lethargy Eyes Eyes: Denies blurry vision ENT Ears, Nose, Mouth, and Throat: Denies vertigo, Denies dizziness, Denies headache(s) and Denies sinus pain Cardiovascular Cardiovascular: Denies chest pain, Denies chest pain at rest, Denies irregular heart rhythm and Denies dyspnea Respiratory Respiratory: Denies chest congestion and Denies dyspnea Gastrointestinal Gastrointestinal: Reports vomiting Genitourinary Genitourinary: Reports as per HPI Musculoskeletal Musculoskeletal: Reports myalgias Integumentary/Breasts Skin/Breast: Denies rash and Denies skin pain Neurologic Neurologic: Denies vertigo, Denies dizziness and Denies headache(s) Patient History Medical History (Updated 06/03/21 @ 00:19 by BLOSSOM Bo) Bilateral lower extremity edema Diabetes (~1995) Easy bruisability History of renal dialysis HLD (hyperlipidemia) HTN (hypertension) Kidney failure MIQUEL (obstructive sleep apnea) Osteoarthritis Overactive bladder Surgical History (Updated 06/03/21 @ 00:15 by BLOSSOM Bo) AV fistula History of hysterectomy History of kidney transplant (2019) Hx of bilateral cataract extraction Hx of dilation and curettage Family History (Updated 06/03/21 @ 00:16 by BLOSSOM Bo) Mother Diabetes mellitus Father Cancer Social History household members: none Smoking Status: Never smoker alcohol intake: never Smoking Status: Never smoker alcohol intake frequency: 0-2 drinks per day Substance Use Type: does not use Exam Initial Vital Signs Initial Vital Signs: Vital Signs Temperature 99.9 F H 06/02/21 17:30 Pulse Rate 87 06/02/21 17:30 Respiratory Rate 18 06/02/21 17:30 Blood Pressure 171/71 H 06/02/21 17:30 Pulse Oximetry 99 06/02/21 17:30 GENERAL: Alert well-appearing 75-year-old and in no acute distress. HEENT: Head atraumatic,EOMI, pupils reactive, face symmetric, moist mucous membranes CARDIOVASCULAR: Regular rate and rhythm without murmurs, rubs or gallops. RESPIRATORY: Breath sounds equal bilaterally, no wheezes rales or rhonchi. ABDOMEN: Soft, nontender. Normoactive bowel sounds all 4 quadrants. No guarding or rebound. : No CVA tenderness EXTREMITIES: Normal range of motion, no clubbing. Nonpitting lower extremity edema patient says is unchanged from her baseline. Neurovascularly intact NEUROLOGICAL: Alert and oriented x4.Normal gait and speech. Cranial nerves II through XII grossly intact. Did diffusely weak without focal deficits ranch hand livestock strength equal bilaterally lower extremity strength equal SKIN: Warm, dry, no laceration, no petechiae, no rashes or lesions. Course Orders Ordered: Acetaminophen (Acetaminophen 325 Mg Tablet) 650 mg PO Q6HR PRN PRN Reason: Fever/Mild Pain (1-3) Last Admin: 06/02/21 23:40 Dose: 650 mg Documented by: YASEMIN Amlodipine Besylate (Amlodipine 5 Mg Tablet) 5 mg PO BID [facility] Last Admin: 06/02/21 22:24 Dose: 5 mg Documented by: YASEMIN Aspirin (Aspirin Ec 81 Mg Tablet) 81 mg PO DAILY [facility] Dextrose (Dextrose 50 % In Water 25 Gm/50 Ml Syringe) 25 gm IV PRN PRN PRN Reason: Hypoglycemia Enoxaparin Sodium (Enoxaparin 40 Mg/0.4 Ml Syringe) 40 mg SUBCUT DAILY [facility] Furosemide (Furosemide 40 Mg/4 Ml Vial) 40 mg IV NOW ONE Stop: 06/03/21 08:01 Ceftriaxone Sodium 1,000 mg/ (Sodium Chloride) 100 mls @ 200 mls/hr IV Q24H [facility] Insulin Glargine (Insulin Glargine 100 Unit/Ml 3ml Pen) 11 unit SUBCUT 0800 [facility] Last Admin: 06/03/21 00:42 Dose: 11 unit Documented by: YASEMIN Cosigned by: JEFF Insulin Human Lispro (Insulin Lispro 100 Unit/Ml 3ml Vial) 10 unit SUBCUT [facility] Insulin Human Lispro (Insulin Lispro 100 Unit/Ml 3ml Vial) 0 unit SUBCUT [facility]; Protocol Losartan Potassium (Losartan 50 Mg Tablet) 50 mg PO BID [facility] Last Admin: 06/02/21 22:24 Dose: 50 mg Documented by: YASEMIN Naloxone HCl (Naloxone 0.4 Mg/Ml Vial) 0.2 mg IV Q2MIN PRN PRN Reason: Opiate Reversal Non-Formulary Medication (Mycophenolate Sodium) 180 mg PO BID [facility] Last Admin: 06/03/21 00:53 Dose: Not Given Documented by: YASEMIN Ondansetron HCl (Ondansetron 4 Mg/2 Ml Inj) 4 mg IV Q8HR PRN PRN Reason: Nausea And Vomiting Oxycodone/Acetaminophen (Oxycodone/Acetaminophen 5/325 Tablet) 1 tab PO Q4HR PRN PRN Reason: Pain, Moderate (4-6) Polyethylene Glycol (Polyethylene Glycol 3350 17 Gm Powd.Pack) 17 gm PO DAILY PRN PRN Reason: Constipation Prednisone (Prednisone 5 Mg Tablet) 5 mg PO DAILY [facility] Tacrolimus (Tacrolimus 0.5 Mg Capsule) 3.5 mg PO BID [facility] Last Admin: 06/02/21 22:25 Dose: 3.5 mg Documented by: YASEMIN Discontinued Medications Sodium Chloride (Normal Saline 0.9%) 1,000 mls @ 1,000 mls/hr IV BOLUS ONE Stop: 06/02/21 18:35 Last Infusion: 06/02/21 19:19 Dose: 100 mls/hr Documented by: Admin: 06/02/21 18:39 Dose: 1,000 mls/hr Documented by: SHELLI Ceftriaxone Sodium 1,000 mg/ (Sodium Chloride) 100 mls @ 200 mls/hr IV NOW ONE Stop: 06/02/21 17:41 Last Infusion: 06/02/21 19:51 Dose: 0 mls/hr Documented by: Admin: 06/02/21 18:52 Dose: 200 mls/hr Documented by: SHELLI Insulin Glargine (Insulin Glargine 100 Unit/Ml 3ml Pen) 20 unit SUBCUT 0800 [facility] Insulin Glargine (Insulin Glargine 100 Unit/Ml 3ml Pen) 11 unit SUBCUT 0800 [facility] Non-Formulary Medication (Mycophenolate Sodium) 180 mg PO BID [facility] Non-Formulary Medication (Mycophenolate Sodium) 360 mg PO BID [facility] Vital Signs Vital signs: Vital Signs - 8 hr 06/02/21 17:30 06/02/21 17:53 06/02/21 18:02 Temperature 99.9 F H Pulse Rate 87 80 84 Respiratory Rate 18 Blood Pressure 171/71 H Pulse Oximetry 99 98 06/02/21 18:04 06/02/21 18:30 06/02/21 18:58 Temperature Pulse Rate 84 82 79 Respiratory Rate 24 25 H 25 H Blood Pressure 151/75 H 166/90 H 136/62 Pulse Oximetry 98 98 06/02/21 19:00 06/02/21 19:30 06/02/21 20:00 Temperature Pulse Rate 79 79 80 Respiratory Rate 24 26 H 37 H Blood Pressure 129/59 L 152/66 H 145/58 H Pulse Oximetry 94 96 Sepsis Guideline Criteria Level 1 - Infection Sepsis Infection Criteria Present: None Treatment Initiated Antibiotics:: IV antimicrobials will be initiated as soon as possible after recognition of sepsis state and within one hour for both sepsis and septic shock. MDM - Sepsis Lab Data Result diagrams: 06/03/21 05:05 06/03/21 05:05 Labs: Lab Results 06/02/21 06/02/21 06/02/21 Range/Units 17:43 17:43 17:43 WBC 15.2 H (4.5-11.0) X10^3/uL RBC 3.97 L (4.0-5.2) X10^6/uL Hgb 11.7 L (12.0-16.0) g/dL Hct 35.5 L (36-46) % MCV 89.4 (80-100) fL MCH 29.4 (26-34) PG MCHC 32.9 (30-36) % RDW 13.8 (11.6-14.8) % Plt Count 194 (150-400) X10^3/uL Neut % (Auto) 87.7 H (50-75) % Lymph % (Auto) 2.4 L (25-40) % [place] % (Auto) 9.6 (3-14) % Eos % (Auto) 0.0 L (2-4) % Baso % (Auto) 0.3 (0-2) % Neut # (Auto) 56824 H (7668-5645) /uL Lymph # (Auto) 400 L (9104-3806) /uL [place] # (Auto) 1500 H (0-900) /uL Eos # (Auto) 0 (0-450) /uL Baso # (Auto) 0 (0-100) /uL PT 12.5 (10.1-12.7) SECONDS INR 1.1 (0.9-1.3) APTT 30 (26.4-36.2) SECONDS Sodium 132 L (137-145) mmol/L Potassium 5.0 (3.4-5.1) mmol/L Chloride 103 (98-107) mmol/L Carbon Dioxide 20 L (22-32) mmol/L BUN 34 H (7-17) mg/dL Creatinine 1.02 (0.52-1.04) mg/dL Estimated GFR 52.8 L (>60) mL/min BUN/Creatinine Ratio 33.3 H (6-22) Glucose 287 H (80-110) mg/dL Hemoglobin A1c (4.0-6.0) % Lactate (0.7-2.1) mmol/L Calcium 9.9 (8.4-10.2) mg/dL Total Bilirubin 0.9 (0.2-1.3) mg/dL AST 23 (14-36) IU/L ALT 19 (<35) IU/L Alkaline Phosphatase 63 (38-126) U/L Total Creatine Kinase 42 (30-135) U/L CK-MB (CK-2) TNP CK-MB (CK-2) Rel Index TNP Troponin I < 0.012 (0.01-0.034) ng/mL NT-Pro-B Natriuret Pep 2650 H (<450) pg/mL Total Protein 6.6 (6.3-8.2) g/dL Albumin 4.0 (3.5-5.0) g/dL Globulin 2.6 (1.7-4.1) g/dL Albumin/Globulin Ratio 1.5 (1.0-2.8) Lipase 27 (23-300) U/L Procalcitonin 0.26 (<0.5) ng/mL Urine RBC (0-5/HPF) Urine WBC (0-5/HPF) Ur Squamous Epith Cells (0-5/HPF) Urine Bacteria (None) Ur Culture Indicated? SARS-CoV-2 (PCR) (Negative) 06/02/21 06/02/21 06/02/21 Range/Units 17:43 17:43 17:43 WBC (4.5-11.0) X10^3/uL RBC (4.0-5.2) X10^6/uL Hgb (12.0-16.0) g/dL Hct (36-46) % MCV (80-100) fL MCH (26-34) PG MCHC (30-36) % RDW (11.6-14.8) % Plt Count (150-400) X10^3/uL Neut % (Auto) (50-75) % Lymph % (Auto) (25-40) % [place] % (Auto) (3-14) % Eos % (Auto) (2-4) % Baso % (Auto) (0-2) % Neut # (Auto) (2019-6701) /uL Lymph # (Auto) (9210-1529) /uL [place] # (Auto) (0-900) /uL Eos # (Auto) (0-450) /uL Baso # (Auto) (0-100) /uL PT (10.1-12.7) SECONDS INR (0.9-1.3) APTT (26.4-36.2) SECONDS Sodium (137-145) mmol/L Potassium (3.4-5.1) mmol/L Chloride (98-107) mmol/L Carbon Dioxide (22-32) mmol/L BUN (7-17) mg/dL Creatinine (0.52-1.04) mg/dL Estimated GFR (>60) mL/min BUN/Creatinine Ratio (6-22) Glucose (80-110) mg/dL Hemoglobin A1c 5.9 (4.0-6.0) % Lactate 1.6 (0.7-2.1) mmol/L Calcium (8.4-10.2) mg/dL Total Bilirubin (0.2-1.3) mg/dL AST (14-36) IU/L ALT (<35) IU/L Alkaline Phosphatase (38-126) U/L Total Creatine Kinase (30-135) U/L CK-MB (CK-2) CK-MB (CK-2) Rel Index Troponin I (0.01-0.034) ng/mL NT-Pro-B Natriuret Pep (<450) pg/mL Total Protein (6.3-8.2) g/dL Albumin (3.5-5.0) g/dL Globulin (1.7-4.1) g/dL Albumin/Globulin Ratio (1.0-2.8) Lipase (23-300) U/L Procalcitonin (<0.5) ng/mL Urine RBC (0-5/HPF) Urine WBC (0-5/HPF) Ur Squamous Epith Cells (0-5/HPF) Urine Bacteria (None) Ur Culture Indicated? SARS-CoV-2 (PCR) Negative (Negative) 06/02/21 Range/Units 19:16 WBC (4.5-11.0) X10^3/uL RBC (4.0-5.2) X10^6/uL Hgb (12.0-16.0) g/dL Hct (36-46) % MCV (80-100) fL MCH (26-34) PG MCHC (30-36) % RDW (11.6-14.8) % Plt Count (150-400) X10^3/uL Neut % (Auto) (50-75) % Lymph % (Auto) (25-40) % [place] % (Auto) (3-14) % Eos % (Auto) (2-4) % Baso % (Auto) (0-2) % Neut # (Auto) (0639-6294) /uL Lymph # (Auto) (1820-6552) /uL [place] # (Auto) (0-900) /uL Eos # (Auto) (0-450) /uL Baso # (Auto) (0-100) /uL PT (10.1-12.7) SECONDS INR (0.9-1.3) APTT (26.4-36.2) SECONDS Sodium (137-145) mmol/L Potassium (3.4-5.1) mmol/L Chloride (98-107) mmol/L Carbon Dioxide (22-32) mmol/L BUN (7-17) mg/dL Creatinine (0.52-1.04) mg/dL Estimated GFR (>60) mL/min BUN/Creatinine Ratio (6-22) Glucose (80-110) mg/dL Hemoglobin A1c (4.0-6.0) % Lactate (0.7-2.1) mmol/L Calcium (8.4-10.2) mg/dL Total Bilirubin (0.2-1.3) mg/dL AST (14-36) IU/L ALT (<35) IU/L Alkaline Phosphatase (38-126) U/L Total Creatine Kinase (30-135) U/L CK-MB (CK-2) CK-MB (CK-2) Rel Index Troponin I (0.01-0.034) ng/mL NT-Pro-B Natriuret Pep (<450) pg/mL Total Protein (6.3-8.2) g/dL Albumin (3.5-5.0) g/dL Globulin (1.7-4.1) g/dL Albumin/Globulin Ratio (1.0-2.8) Lipase (23-300) U/L Procalcitonin (<0.5) ng/mL Urine RBC 0-1/hpf (0-5/HPF) Urine WBC 10-30/hpf H (0-5/HPF) Ur Squamous Epith Cells 1-5 /hpf (0-5/HPF) Urine Bacteria Many (>30) H (None) Ur Culture Indicated? Specimen cultured SARS-CoV-2 (PCR) (Negative) Urine Dip Bedside Urine Glucose 100 mg/dl Bedside Urine Bilirubin - Negative Bedside Urine Ketone + 15 Urine Specific [place] 1.020 Bedside Urine Occult Blood - Negative Bedside Urine pH 6.0 Bedside Urine Protein + 30 Bedside Urine Urobilinogen - Negative Bedside Urine Nitrite + Positive Bedside Urine Leukocytes - Negative Esterase Imaging Data Chest x-ray: Radiologist's Impression: PROCEDURE:? XR CHEST 1V ? INDICATIONS:? suspected sepsis ? TECHNIQUE:? One view of the chest was acquired.? ? COMPARISON:? None. ? FINDINGS:? ? Surgical changes and devices:? Monitoring device is noted overlying the right lower lobe obscuring portions of VELIA a boyd. ? Lungs and pleura:? There is an overall appearance of coarsening within the bases bilaterally, left greater than right. ? Mediastinum:? Mediastinal contours appear normal.? Heart size is normal.? ? Bones and chest wall:? No suspicious bony lesions.? Overlying soft tissues appear unremarkable.? ? IMPRESSION:? Bilateral coarsening as above.? While this could represent dependent change, developing airspace disease such as pneumonia cannot be excluded.? ? ? Dictated by: Lucrecia Kruger M.D. on 06/02/2021 at 18:32 ? ? Approved by: Lucrecia Kruger M.D. on 06/02/2021 at 18:33 ? ECG Data Attestation: I personally reviewed and interpreted this ECG as follows: Prior ECG tracings: available for review Interpretation: Normal sinus rhythm rate 85 AR interval 188 QRS [address] changes similar to previous EKG MDM Narrative Medical decision making narrative: Patient is overall diffusely weak she has UTI but is otherwise hemodynamically stable. She requires assistance walking. She lives alone but daughter is here with her. She has multiple comorbidities including kidney transplant taking anti rejection medications. At this time she has no focal deficits I see no need for intracranial imaging. Ofelia DIEGO and P updated patient's symptoms test results and accepts patient. Discharge Plan Departure Patient Disposition: Admitted As Inpatient Clinical Impression: Acute UTI Admit Date/Time: 06/02/21 20:45 Admit Provider: Jacki Queen
[2021-06-02 18:24] LABS: NT-proBNP (BNP-Adult 18+) 2650 pg/mL (<450); Troponin I < 0.012 ng/mL (0.01-0.034)
[2021-06-02 18:28] LABS: Procalcitonin 0.26 ng/mL (<0.5)
[2021-06-02] MEDS: SODIUM CHLORIDE 0.9% 1,000 ML 1000 ML IV (18:39)
[2021-06-02] MEDS: cefTRIAXone 1,000 MG in SODIUM CHLORIDE 0.9% 100 ML 200 ML IV (18:52)
[2021-06-02 19:25] LABS: COVID19 - ADMIT (NP swab/PCR) Negative (Negative)
[2021-06-02 19:30] LABS: Bacteria Urine Many (>30); Culture Indicated Urine Specimen Cultured; RBC Urine 0-1/HPF (0-5/HPF); Squamous Epithelial Cell Urine 1-5 /HPF (0-5/HPF); WBC Urine 10-30/HPF (0-5/HPF)
[2021-06-02 21:51] LABS: Hemoglobin A1C% w Est Avg Glu 5.9 % (4.0-6.0)
[2021-06-02] MEDS: LOSARTAN 50 MG TABLET PO (22:24)
[2021-06-02] MEDS: AMLODIPINE 5 MG TABLET PO (22:24)
[2021-06-02] MEDS: TACROLIMUS 0.5 MG CAPSULE 3.5 MG PO (22:25)
[2021-06-02 22:34] LABS: Alanine Aminotransferase 20 IU/L (<35); Albumin Globulin Ratio 1.5 (1.0-2.8); Alkaline Phosphatase 58 U/L (38-126); Aspartate Aminotransferase 23 IU/L (14-36); BUN Creatinine Ratio 28.4 (6-22); Bilirubin Total 0.6 mg/dL (0.2-1.3); Bilirubin Unconjugated 0.5 mg/dL (0.0-1.1); Blood Urea Nitrogen 31 mg/dL (7-17); Calcium 9.7 mg/dL (8.4-10.2); Carbon Dioxide 23 mmol/L (22-32); Chloride 103 mmol/L (98-107); Estimated Glomerular Filt Rate 48.9 mL/min (>60); Globulin 2.7 g/dL (1.7-4.1); Glucose 263 mg/dL (80-110); HEMOLYSIS < 15 (0-50); Phosphorous 3.4 mg/dL (2.8-4.1); Potassium 4.7 mmol/L (3.4-5.1); Sodium 134 mmol/L (137-145); Total Protein 6.7 g/dL (6.3-8.2)
--- NOTE | 2021-06-02 23:26 | P.HP_ITS ---
History of Present Illness History of Present Illness Date Patient Seen: 06/02/21 Time Patient Seen: 23:26 Chief complaint: syncope and fever Narrative: Darleen Dodge is a 75-year-old female with a history of a kidney transplant 2 years ago, diabetes type 2, hypertension, hyperlipidemia, and lower extremity edema was sent to the emergency department by her PCP's office via ambulance for further evaluation and treatment of UTI. She states her symptoms started at midnight it would be 24 hours ago and had the chills and was urinating every 15 minutes. She states it has been about 4 oz at a time. Then call Dr. John's office and was seen mid afternoon earlier today. When she was getting ready to leave the clinic she was sitting on the table and her PCP advised her that she needs to leave in a wheelchair because she did not seem to be ambulating [facility]. When her friend arrived with a wheelchair the patient apparently stood up and passed out and ended up on the floor. Both her PCP and her friend tried to get her off the floor to wake up. Then they were older on her side because she started the vomit bile. She stated that she had not had anything all day to eat. That was when they decided to call an ambulance [facility] She did have a fever this morning and had been taking Tylenol. She states that she gets migraines when she gets UTI so she was also taking the Tylenol to prophylax any common migraine that might happen. She does complain of having loose stools. She did have fever on admission. Prior to her presenting to her PCPs she did have burning urination and was getting up frequently in the middle night every 15 minutes to urinate. She denied shortness of breath, abdominal pain, constipation, she does have pain from the swelling in her feet and legs. Patient sees a hand molder and caster as well as a seismograph shooter for her diabetes. She states she has had chronic lower leg swelling and in the past when she has urinated she feels a difference in the amount of fluids in her legs. She states that the multiple family members have had this and no one's of her figured out why or how to treat it. She does states she wears compression stockings at home. She has chronic dysuria where she is incontinent of urine. She did have an echocardiogram done in June of 2020 in advance of knee replacement surgery. She had a normal ejection fraction of 65-70% and question a relaxation abnormality of the left ventricle with normal filling pressures. They also indicated she might have a bicuspid aortic valve with [id number] aortic stenosis. Chest x-ray done in the ER was negative for any acute cardiopulmonary process though question whether she might be developing a pneumonia. T max was 99.9, it is currently 97.1, blood pressure 145/64, heart rate 83, respiratory rate 16, oxygen saturation 97% on room air she weighs 97.5 kilos with a BMI of 33.6. She does have an elevated white count of 15.2, RBC 3.97 she is mildly anemic with a hemoglobin and hematocrit of 11.7 and 35.5 respectively, she has left shift 13,000, sodium was 134, BUN 31, creatinine 1.09, GFR is 48.9, glucose 263, A1c was 5.9, lactate 1.6, proBNP is 26 50, UA is positive for UTI and cultures pending, COVID-19 PCR is negative. Patient History Medical History (Updated 06/03/21 @ 00:19 by BLOSSOM Bo) Bilateral lower extremity edema Diabetes (~1995) Easy bruisability History of renal dialysis HLD (hyperlipidemia) HTN (hypertension) Kidney failure MIQUEL (obstructive sleep apnea) Osteoarthritis Overactive bladder Surgical History (Updated 06/03/21 @ 00:15 by BLOSSOM Bo) AV fistula History of hysterectomy History of kidney transplant (2018) Hx of bilateral cataract extraction Hx of dilation and curettage Family & Social History Family History Mother Diabetes mellitus Father Cancer Social History: household members none Prior Living Arrangements House Safety & Behavioral: Feels Safe in Current Yes Environment Been Physically Hurt or No Threatened By a Person Suicidal Ideation Description None Suicide Plan Description No Plan Tobacco & Substance use: Smoking Status Never smoker alcohol intake never alcohol intake frequency 0-2 drinks per day Substance Use Type does not use Meds Home Medications and Allergies Home Medications Medication Instructions Recorded Confirmed Type acetaminophen 500 mg tablet 1,000 mg PO BEDTIME PRN 01/29/21 02/09/21 History amlodipine 5 mg tablet 5 mg PO BID 01/29/21 06/02/21 History aspirin 81 mg tablet,delayed 81 mg PO DAILY 01/29/21 06/02/21 History release carvedilol 6.25 mg tablet 12.5 mg PO BID 01/29/21 06/02/21 History dulaglutide 1.5 mg/0.5 mL 1.5 mg SUBCUT QWEEK 01/29/21 02/09/21 History subcutaneous pen injector (Trulicity) insulin glargine 100 unit/mL (3 11 unit SUBCUT BEDTIME 01/29/21 06/02/21 History mL) subcutaneous pen (Lantus Solostar U-100 Insulin) insulin lispro 100 unit/mL 6 - 9 unit SUBCUT TID 01/29/21 06/02/21 History subcutaneous pen (Humalog KwikPen (U-100) Insulin) losartan 50 mg tablet 50 mg PO BID 01/29/21 06/02/21 History magnesium oxide 400 mg PO DAILY 01/29/21 02/09/21 History mycophenolate sodium 360 mg 180 mg PO BID 01/29/21 06/02/21 History tablet,delayed release prednisone 5 mg tablet 5 mg PO DAILY 01/29/21 02/09/21 History tacrolimus 1 mg capsule, 3.5 mg BID 01/29/21 06/02/21 History immediate-release lysine 1,000 mg tablet 1,000 mg PO BID 02/05/21 06/02/21 History aspirin 81 mg tablet,delayed 81 mg PO BID #90 tab 02/11/21 Rx release hydromorphone 2 mg tablet 2 mg PO Q3H PRN #40 tab 02/11/21 Rx polyethylene glycol 3350 17 gram 17 gm PO DAILY PRN #30 ea 02/11/21 Rx oral powder packet prednisone 5 mg tablet 5 mg PO DAILY 06/02/21 06/02/21 History Allergies Allergy/AdvReac Type Severity Reaction Status Date / Time Penicillins Allergy Severe BLE Verified 06/02/21 17:37 swelling, redness adhesive Allergy Mild Rash with Verified 06/02/21 17:37 plastic tape chlorhexidine Allergy Mild Rash Verified 06/02/21 17:37 gentamicin Allergy Mild Rash Verified 06/02/21 17:37 Review of Systems Review of Systems ROS: Yes All systems reviewed with the patient and are negative except as otherwise documented Exam Vital Signs (past 8 hours): - 06/02/21 17:30 06/02/21 17:53 06/02/21 18:02 Temperature 99.9 F H Pulse Rate 87 80 84 Respiratory Rate 18 Blood Pressure 171/71 H Pulse Oximetry 99 98 06/02/21 18:04 06/02/21 18:30 06/02/21 18:58 Temperature Pulse Rate 84 82 79 Respiratory Rate 24 25 H 25 H Blood Pressure 151/75 H 166/90 H 136/62 Pulse Oximetry 98 98 06/02/21 19:00 06/02/21 19:30 06/02/21 20:00 Temperature Pulse Rate 79 79 80 Respiratory Rate 24 26 H 37 H Blood Pressure 129/59 L 152/66 H 145/58 H Pulse Oximetry 94 96 06/02/21 20:30 06/02/21 21:00 06/02/21 21:55 Temperature 97.1 F L Pulse Rate 83 77 83 Respiratory Rate 24 26 H 16 Blood Pressure 145/64 H Pulse Oximetry 98 97 06/02/21 22:24 Temperature Pulse Rate 83 Respiratory Rate Blood Pressure 145/64 H Pulse Oximetry Oxygen Delivery Method Room Air Oxygen Flow Rate 0 Narrative Exam Narrative: Gen: Alert, oriented, obese 75 y.o. female, NAD HEENT: normocephalic, atraumatic, conjunctiva clear, sclera non-icteric, oral mucosa pink and moist Neck: supple, full ROM, no JVD, trachea is midline Resp: Lungs CTA, non-labored breathing CV: RRR, no murmur or rubs Abd: soft, non-tender, normoactive BTs Skin: no lesions or rashes, dry and intact Neuro: Alert and oriented X 4 w/no focal deficits. Speech clear and coherent. Extremities: Lower legs w/significant dependent edema extending to toes, moves all 4 extremities, is ambulatory w/assist, negative Eugene?s sign Psyche: normal mood and affect. Objective Labs Result Diagrams: 06/02/21 17:43 06/02/21 22:15 Labs: Laboratory Results - last 24 hr 06/02/21 06/02/21 06/02/21 17:43 17:43 17:43 WBC 15.2 H RBC 3.97 L Hgb 11.7 L Hct 35.5 L MCV 89.4 MCH 29.4 MCHC 32.9 RDW 13.8 Plt Count 194 Neut % (Auto) 87.7 H Lymph % (Auto) 2.4 L [place] % (Auto) 9.6 Eos % (Auto) 0.0 L Baso % (Auto) 0.3 Neut # (Auto) 84479 H Lymph # (Auto) 400 L [place] # (Auto) 1500 H Eos # (Auto) 0 Baso # (Auto) 0 PT 12.5 INR 1.1 APTT 30 Sodium 132 L Potassium 5.0 Chloride 103 Carbon Dioxide 20 L BUN 34 H Creatinine 1.02 Estimated GFR 52.8 L BUN/Creatinine Ratio 33.3 H Glucose 287 H Hemoglobin A1c Lactate Calcium 9.9 Phosphorus Total Bilirubin 0.9 Conjugated Bilirubin Unconjugated Bilirubin AST 23 ALT 19 Alkaline Phosphatase 63 Total Creatine Kinase 42 CK-MB (CK-2) TNP CK-MB (CK-2) Rel Index TNP Troponin I < 0.012 NT-Pro-B Natriuret Pep 2650 H Total Protein 6.6 Albumin 4.0 Globulin 2.6 Albumin/Globulin Ratio 1.5 Lipase 27 Procalcitonin 0.26 Urine RBC Urine WBC Ur Squamous Epith Cells Urine Bacteria Ur Culture Indicated? SARS-CoV-2 (PCR) 06/02/21 06/02/21 06/02/21 17:43 17:43 17:43 WBC RBC Hgb Hct MCV MCH MCHC RDW Plt Count Neut % (Auto) Lymph % (Auto) [place] % (Auto) Eos % (Auto) Baso % (Auto) Neut # (Auto) Lymph # (Auto) [place] # (Auto) Eos # (Auto) Baso # (Auto) PT INR APTT Sodium Potassium Chloride Carbon Dioxide BUN Creatinine Estimated GFR BUN/Creatinine Ratio Glucose Hemoglobin A1c 5.9 Lactate 1.6 Calcium Phosphorus Total Bilirubin Conjugated Bilirubin Unconjugated Bilirubin AST ALT Alkaline Phosphatase Total Creatine Kinase CK-MB (CK-2) CK-MB (CK-2) Rel Index Troponin I NT-Pro-B Natriuret Pep Total Protein Albumin Globulin Albumin/Globulin Ratio Lipase Procalcitonin Urine RBC Urine WBC Ur Squamous Epith Cells Urine Bacteria Ur Culture Indicated? SARS-CoV-2 (PCR) Negative 06/02/21 06/02/21 19:16 22:15 WBC RBC Hgb Hct MCV MCH MCHC RDW Plt Count Neut % (Auto) Lymph % (Auto) [place] % (Auto) Eos % (Auto) Baso % (Auto) Neut # (Auto) Lymph # (Auto) [place] # (Auto) Eos # (Auto) Baso # (Auto) PT INR APTT Sodium 134 L Potassium 4.7 Chloride 103 Carbon Dioxide 23 BUN 31 H Creatinine 1.09 H Estimated GFR 48.9 L BUN/Creatinine Ratio 28.4 H Glucose 263 H Hemoglobin A1c Lactate Calcium 9.7 Phosphorus 3.4 Total Bilirubin 0.6 Conjugated Bilirubin 0.0 Unconjugated Bilirubin 0.5 AST 23 ALT 20 Alkaline Phosphatase 58 Total Creatine Kinase CK-MB (CK-2) CK-MB (CK-2) Rel Index Troponin I NT-Pro-B Natriuret Pep Total Protein 6.7 Albumin 4.0 Globulin 2.7 Albumin/Globulin Ratio 1.5 Lipase Procalcitonin Urine RBC 0-1/hpf Urine WBC 10-30/hpf H Ur Squamous Epith Cells 1-5 /hpf Urine Bacteria Many (>30) H Ur Culture Indicated? Specimen cultured SARS-CoV-2 (PCR) Assessment & Plan Assessment & Plan narrative: Darleen Dodge will be admitted for management of a urinary tract infection. 1. Urinary tract infection, acute and present on admission * She was initiated on IV ceftriaxone * cultures are pending 2. Diabetes type 2, well controlled w/an A1c of 5.9 * She normally takes Lantus 11 units daily and prandial humalog 10 units w/meals * Her blood glucoses have progressively been increasing into the 300s tonight, likely due to severe infection. She is administered Lantus 15 units tonight * Carb controlled diet. 3. Transplanted kidney status on anti-rejection medications, chronic * She takes tacromiuis 3.5 mg jpo bid, she will take her own meds when they are brought in as our formulation only comes in 5 mg capsules * She takes mycophenalate 180 mg po bid, and will take her own meds when they are brought in. 4. LE edema, chronic * Possibly secondary to chronic use of amlodipine and prednisone * ?Fluid restriction? 5. Essential hypertension * Continue home doses of amlodipine 5 mg po bid, carvedilol 12.5 mg po bid and losartan 50 mg po bid. VTE Prophylaxis: Wells risk score 0 Enoxaparin 40 mg subQ once daily [X] Bilateral SCDs ]Patient is admitted to the inpatient service due to the severity of disease, risks of further disease progression and this stay is expected to exceed 2 midnights. FEN: IV fluids: saline lock, diet: Carb controlled diet, labs: CBC, C/BMP, liver enzymes, Mag, PT/INR Consultants None Dispo: probable discharge to home Code status: Full code as discussed with the patient who identifies her grandson, Alirio Escobar as her surrogate and POA. [X] I have utilized all available immediate resources to obtain, update, or review of the patient's current medications COVID-19 COVID-19 status: Negative Result date/Date tested (Pos, Neg/Pending): 06/02/21 Quality VTE Deep Vein Thrombosis/Pulmonary Embolism Present on Admission: No MIPS - Admit I confirm the patient?s Advance Care Plan is present, Code status is documented, Surrogate decision maker is in patient?s record [If Yes, STOP here]: Yes MIPS - DC The patient has current or prior documentation of left ventricular ejection fraction (LVEF) less than 40%, or moderate or severely depressed left ventricular systolic function.: No
[2021-06-02] MEDS: ACETAMINOPHEN 325 MG TABLET 650 MG PO (23:40)
[2021-06-03] VITALS (9 sets, daily range): BP systolic 133–152; BP diastolic 59–66; PULSE 78–84; RESP 16–18; TEMP 36.4–36.9; O2SAT 95–98
[2021-06-03] MEDS: INSULIN GLARGINE 100 UNIT/ML 3ML PEN 11 UNIT SUBCUT (00:42)
--- NOTE | 2021-06-03 02:48 | PC.NURSE ---
Late entry: Patient arrived to the unit via wheelchair at 2155 from the ED. Patient was A/O, on RA, and ambulated from wheelchair to bed without assistance. Patient was oriented to room, fall procedures, and call light. Patient stated that a friend was bringing her home medications tonight and she would inform this RN when they arrived. Patient had some urgency when urinating and was given a clean brief. Patient resting in bed with call light within reach, bed in lowest, locked position, and no other complaints at this time.
[2021-06-03 05:17] LABS: Add Manual Diff / Slide Review NO; Basophils Absolute Auto 0 /uL (0-100); Basophils Percent Auto 0.2 % (0-2); Eosinophils Absolute Auto 0 /uL (0-450); Eosinophils Percent Auto 0.1 % (2-4); Hematocrit 33.3 % (36-46); Hemoglobin 10.9 g/dL (12.0-16.0); Lymphocytes Absolute Auto 800 /uL (1100-4500); Lymphocytes Percent Auto 7.2 % (25-40); Mean Corpuscular HGB Conc 32.7 % (30-36); Mean Corpuscular Hemoglobin 29.2 PG (26-34); Mean Corpuscular Volume 89.2 fL (80-100); Monocytes Absolute Auto 1000 /uL (0-900); Monocytes Percent Auto 9.7 % (3-14); Neutrophils Absolute Auto 8900 /uL (1500-7000); Neutrophils Percent Auto 82.8 % (50-75); Platelet Count 174 X10^3/uL (150-400); Red Blood Cell Count 3.74 X10^6/uL (4.0-5.2); Red Cell Distribution Width 14.2 % (11.6-14.8); White Blood Cell Count 10.7 X10^3/uL (4.5-11.0)
[2021-06-03 05:27] LABS: Alanine Aminotransferase 18 IU/L (<35); Albumin 3.6 g/dL (3.5-5.0); Albumin Globulin Ratio 1.4 (1.0-2.8); Alkaline Phosphatase 52 U/L (38-126); Aspartate Aminotransferase 21 IU/L (14-36); BUN Creatinine Ratio 27.4 (6-22); Bilirubin Total 0.4 mg/dL (0.2-1.3); Bilirubin Unconjugated 0.3 mg/dL (0.0-1.1); Blood Urea Nitrogen 31 mg/dL (7-17); Calcium 9.7 mg/dL (8.4-10.2); Carbon Dioxide 24 mmol/L (22-32); Chloride 105 mmol/L (98-107); Estimated Glomerular Filt Rate 46.9 mL/min (>60); Globulin 2.5 g/dL (1.7-4.1); Glucose 212 mg/dL (80-110); HEMOLYSIS < 15 (0-50); Phosphorous 3.2 mg/dL (2.8-4.1); Potassium 4.4 mmol/L (3.4-5.1); Sodium 133 mmol/L (137-145); Total Protein 6.1 g/dL (6.3-8.2)
[2021-06-03 05:28] LABS: BUN Creatinine Ratio 28.2 (6-22); Blood Urea Nitrogen 31 mg/dL (7-17); Calcium 9.8 mg/dL (8.4-10.2); Carbon Dioxide 23 mmol/L (22-32); Chloride 104 mmol/L (98-107); Estimated Glomerular Filt Rate 48.4 mL/min (>60); Glucose 211 mg/dL (80-110); HEMOLYSIS < 15 (0-50); Magnesium 2.1 mg/dL (1.6-2.3); Potassium 4.4 mmol/L (3.4-5.1); Sodium 134 mmol/L (137-145)
[2021-06-03] MEDS: INSULIN LISPRO 100 UNIT/ML 3ML VIAL SUBCUT ×4 (08:39→23:02)
[2021-06-03] MEDS: TACROLIMUS 0.5 MG CAPSULE 3.5 MG PO ×2 (09:46→22:52)
[2021-06-03] MEDS: predniSONE 5 MG TABLET PO (09:47)
[2021-06-03] MEDS: ASPIRIN EC 81 MG TABLET PO (09:47)
[2021-06-03] MEDS: AMLODIPINE 5 MG TABLET PO ×2 (09:47→22:52)
[2021-06-03] MEDS: BUMETANIDE 1 MG TABLET 0.5 MG PO (09:47)
[2021-06-03] MEDS: LOSARTAN 50 MG TABLET PO ×2 (09:47→22:52)
[2021-06-03] MEDS: ENOXAPARIN 40 MG/0.4 ML SYRINGE SUBCUT (09:49)
[2021-06-03] MEDS: ACETAMINOPHEN 325 MG TABLET 650 MG PO ×3 (11:20→22:54)
--- NOTE | 2021-06-03 12:56 | CM.DANOTE ---
Patient is a 75 yo female who was admitted on 06/02/21 for Syncope. Pt has MCR and [employer] for insurance and her PCP is Dr. Octavio Cevallos. EMR was reviewed. Per MD, pt with hx of kidney transplant 2 yrs ago and multiple medical comorbidities and admitted after EMS called to PCP office after pt collapsed. Pt admitted for significant UTI medical management. PT ordered and pending. SW met bedside with pt and explained role and she confirms that she lives at home in [place] alone and is active and independent at baseline and drives and uses DME for outdoor ambulation with either a cane for 4WW. Pt states she has a few close supportive local friends and then her Dtr/DPOA lives only 2 miles away but pt states my Dtr doesn't seem to be too interested in what is happening with me either medically or just day to day. SW discussed that pt could also assign multiple people as her DPOA if needed/preferred and pt states she has been considering this. Pt denies any hx of SNF or HH but states she has definitely utilized outpt PT. Pt was last admitted in Feb 2021 this year for RTKA and was able to d/c home with her friend from [place] staying with her for assist. Pt does not anticipate any needs at d/c but did request info on [facility] in case she is home with her dog and falls or has another syncope incident. SW provided the [facility] brochure to review. Pt confirms that her friend that brought in her meds and clothes can also provide transport home at d/c. Plan: SW to follow closely for PT eval and recommendation to confirm safe plan of home via friend POV and r/o HH and any further identified discharge planning needs. DAYANARA Villalba Discharge Planning/Care Management CM Discharge Assessment Start: 06/03/21 12:55 Freq: Status: Active Protocol: Document 06/03/21 12:55 BF (Rec: 06/03/21 12:56 BF [id number]) Discharge Planning Assessment Assigned Language Instructor DAYANARA Darden DPOA/Assigned Designee Name Dtr in [place] Advance Directives? Yes Advance Directives on File No: At home on the History Provided By Patient,Medical Record Has Patient been admitted in last 30 No days? Prior Living Arrangements House Household Members none Type of transporation used prior to Drives own vehicle admit Independent with ADL's Yes Is patient alert and oriented? Yes Caregiver for Another No Community Services used prior to Physical Therapy admission: DME Already Rented / Owned FWW / Walker,Cane Patient/Family Preference OP PT Therapy Barriers to Discharge No Discharge Plan Home Transportation Arrangement Friend can provide transport. Referrals Initiated Other Additional Comment Pending patient status. Patient prefers to d/c home with supportive friend. Patient has outpatient therapy confirmed. Whiteboard Updated in Patient Room with Yes name and ext. # of Language Instructor Review Status In Process Please Provide Date Initial DC 06/03/21 Assessment Was Performed Next Review Type Continued Stay Review
--- NOTE | 2021-06-03 13:56 | P.PN_ITS ---
Subjective Subjective Date Patient Seen: 06/03/21 Interval history: THIS IS A 75-YEAR-OLD FEMALE BEING TREATED FOR URINARY TRACT INFECTION PATIENT HAS SIGNIFICANT EDEMA TO LOWER EXTREMITIES IS WELL TODAY SHE WAS ON HER BED DURING MY EVALUATION SHE DID NOT HAVE ANY SIGNIFICANT COMPLAINTS DENIES ANY INCREASING SHORTNESS OF BREATH NO CHEST PAIN NO INCREASING CONFUSION Exam Vital Signs (past 8 hours): - 06/03/21 07:00 06/03/21 07:15 06/03/21 09:47 Temperature 97.6 F Pulse Rate 84 84 Respiratory Rate 16 Blood Pressure 152/66 H 152/66 H Pulse Oximetry 97 97 Oxygen Delivery Method Room Air Oxygen Flow Rate 0 Narrative Exam Narrative: NO ACUTE DISTRESS. PATIENT IS ALERT ORIENTED X3. VITAL SIGNS STABLE HEAD ATRAUMATIC NORMOCEPHALIC NECK : SUPPLE WITHOUT ADENOPATHY NO CAROTID BRUITS EYE: EOMI, PERRLA, NORMAL CONJUNCTIVA; NO JAUNDICE CHEST: REGULAR RATE. NO RUBS. PMI IS NON DISPLACED. NO MURMURS; NORMAL S1- S2 PULMONARY: DECREASED BS OVER THE BASES. MILD BIBASILAR CRACKLES NOTED; NO INCREASED DULLNESS TO PERCUSSION ABDOMEN: SOFT. NONTENDER. NONDISTENDED. BOWEL SOUNDS ARE PRESENT IN ALL 4 QUADRANTS. NO MASS. EXTREMITIES: NONPITTING BILATERAL LOWER EXTREMITY 3+ EDEMA.. NO CYANOSIS CLUBBING NOTED. NEURO: CRANIAL NERVES 2-12 GROSSLY INTACT. NO FOCAL NEUROLOGICAL DEFICIT NOTED. MSK: NORMAL RANGE OF MOTION FOR AGE. NO JOINT EFFUSION. SKIN: NORMAL FOR ETHNICITY; NO ECCHYMOSIS. NO LESION. GOOD TURGOR.; NO RASHES : NORMAL EXTERNAL GENITALIA. PSYCH : APPROPRIATE MOOD AND AFFECT. ALERT AWAKE ORIENTED X3 Objective Labs Result Diagrams: 06/03/21 05:05 06/03/21 05:05 Labs: Laboratory Results - last 24 hr 06/02/21 06/02/21 06/02/21 17:43 17:43 17:43 WBC 15.2 H RBC 3.97 L Hgb 11.7 L Hct 35.5 L MCV 89.4 MCH 29.4 MCHC 32.9 RDW 13.8 Plt Count 194 Neut % (Auto) 87.7 H Lymph % (Auto) 2.4 L [place] % (Auto) 9.6 Eos % (Auto) 0.0 L Baso % (Auto) 0.3 Neut # (Auto) 21802 H Lymph # (Auto) 400 L [place] # (Auto) 1500 H Eos # (Auto) 0 Baso # (Auto) 0 PT 12.5 INR 1.1 APTT 30 Sodium 132 L Potassium 5.0 Chloride 103 Carbon Dioxide 20 L BUN 34 H Creatinine 1.02 Estimated GFR 52.8 L BUN/Creatinine Ratio 33.3 H Glucose 287 H Hemoglobin A1c Lactate Calcium 9.9 Phosphorus Magnesium Total Bilirubin 0.9 Conjugated Bilirubin Unconjugated Bilirubin AST 23 ALT 19 Alkaline Phosphatase 63 Total Creatine Kinase 42 CK-MB (CK-2) TNP CK-MB (CK-2) Rel Index TNP Troponin I < 0.012 NT-Pro-B Natriuret Pep 2650 H Total Protein 6.6 Albumin 4.0 Globulin 2.6 Albumin/Globulin Ratio 1.5 Lipase 27 Procalcitonin 0.26 Urine RBC Urine WBC Ur Squamous Epith Cells Urine Bacteria Ur Culture Indicated? SARS-CoV-2 (PCR) 06/02/21 06/02/21 06/02/21 17:43 17:43 17:43 WBC RBC Hgb Hct MCV MCH MCHC RDW Plt Count Neut % (Auto) Lymph % (Auto) [place] % (Auto) Eos % (Auto) Baso % (Auto) Neut # (Auto) Lymph # (Auto) [place] # (Auto) Eos # (Auto) Baso # (Auto) PT INR APTT Sodium Potassium Chloride Carbon Dioxide BUN Creatinine Estimated GFR BUN/Creatinine Ratio Glucose Hemoglobin A1c 5.9 Lactate 1.6 Calcium Phosphorus Magnesium Total Bilirubin Conjugated Bilirubin Unconjugated Bilirubin AST ALT Alkaline Phosphatase Total Creatine Kinase CK-MB (CK-2) CK-MB (CK-2) Rel Index Troponin I NT-Pro-B Natriuret Pep Total Protein Albumin Globulin Albumin/Globulin Ratio Lipase Procalcitonin Urine RBC Urine WBC Ur Squamous Epith Cells Urine Bacteria Ur Culture Indicated? SARS-CoV-2 (PCR) Negative 06/02/21 06/02/21 06/03/21 19:16 22:15 05:05 WBC 10.7 RBC 3.74 L Hgb 10.9 L Hct 33.3 L MCV 89.2 MCH 29.2 MCHC 32.7 RDW 14.2 Plt Count 174 Neut % (Auto) 82.8 H Lymph % (Auto) 7.2 L [place] % (Auto) 9.7 Eos % (Auto) 0.1 L Baso % (Auto) 0.2 Neut # (Auto) 8900 H Lymph # (Auto) 800 L [place] # (Auto) 1000 H Eos # (Auto) 0 Baso # (Auto) 0 PT INR APTT Sodium 134 L Potassium 4.7 Chloride 103 Carbon Dioxide 23 BUN 31 H Creatinine 1.09 H Estimated GFR 48.9 L BUN/Creatinine Ratio 28.4 H Glucose 263 H Hemoglobin A1c Lactate Calcium 9.7 Phosphorus 3.4 Magnesium Total Bilirubin 0.6 Conjugated Bilirubin 0.0 Unconjugated Bilirubin 0.5 AST 23 ALT 20 Alkaline Phosphatase 58 Total Creatine Kinase CK-MB (CK-2) CK-MB (CK-2) Rel Index Troponin I NT-Pro-B Natriuret Pep Total Protein 6.7 Albumin 4.0 Globulin 2.7 Albumin/Globulin Ratio 1.5 Lipase Procalcitonin Urine RBC 0-1/hpf Urine WBC 10-30/hpf H Ur Squamous Epith Cells 1-5 /hpf Urine Bacteria Many (>30) H Ur Culture Indicated? Specimen cultured SARS-CoV-2 (PCR) 06/03/21 06/03/21 05:05 05:05 WBC RBC Hgb Hct MCV MCH MCHC RDW Plt Count Neut % (Auto) Lymph % (Auto) [place] % (Auto) Eos % (Auto) Baso % (Auto) Neut # (Auto) Lymph # (Auto) [place] # (Auto) Eos # (Auto) Baso # (Auto) PT INR APTT Sodium 134 L 133 L Potassium 4.4 4.4 Chloride 104 105 Carbon Dioxide 23 24 BUN 31 H 31 H Creatinine 1.10 H 1.13 H Estimated GFR 48.4 L 46.9 L BUN/Creatinine Ratio 28.2 H 27.4 H Glucose 211 H 212 H Hemoglobin A1c Lactate Calcium 9.8 9.7 Phosphorus 3.2 Magnesium 2.1 Total Bilirubin 0.4 Conjugated Bilirubin 0.0 Unconjugated Bilirubin 0.3 AST 21 ALT 18 Alkaline Phosphatase 52 Total Creatine Kinase CK-MB (CK-2) CK-MB (CK-2) Rel Index Troponin I NT-Pro-B Natriuret Pep Total Protein 6.1 L Albumin 3.6 Globulin 2.5 Albumin/Globulin Ratio 1.4 Lipase Procalcitonin Urine RBC Urine WBC Ur Squamous Epith Cells Urine Bacteria Ur Culture Indicated? SARS-CoV-2 (PCR) [facility] Medical History (Updated 11/24/21 @ 00:19 by BLOSSOM Bo) Bilateral lower extremity edema Diabetes (~1995) Easy bruisability History of renal dialysis HLD (hyperlipidemia) HTN (hypertension) Kidney failure MIQUEL (obstructive sleep apnea) Osteoarthritis Overactive bladder Surgical History (Updated 06/03/21 @ 00:15 by BLOSSOM Bo) AV fistula History of hysterectomy History of kidney transplant (2019) Hx of bilateral cataract extraction Hx of dilation and curettage Family History (Updated 06/03/21 @ 00:16 by BLOSSOM Bo) Mother Diabetes mellitus Father Cancer Social History household members: none Smoking Status: Never smoker alcohol intake: never Assessment & Plan Assessment & Plan narrative: IMPRESSION GRAM-NEGATIVE BACTERIAL INFECTION POSSIBLE ACUTE ON CHRONIC KIDNEY KIDNEY DISEASE. THE PATIENT HAS HISTORY OF KIDNEY TRANSPLANT. 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 CHRONIC. MARCOS HOSE DIABETES TYPE 2 FOR HISTORY ANEMIA CHRONIC DISEASE PLAN CONTINUE TO FOLLOW URINE CULTURE CLOSELY WILL CONTINUE CURRENT ANTIBIOTICS AND AWAIT FOR FINAL CULTURE RESULTS PRIOR TO MAKE ANY CHANGES THE REVIEW SEE NOTED TO BE BACK TO BEING WITHIN NORMAL LIMITS MONITOR INPUT OUTPUT CLOSELY AVOID ALL NEPHROTOXINS PHARMACY TO DOSE ALL MEDICATIONS FOR GFR IN REGARD TO HER LOWER EXTREMITY EDEMA. THIS IS CHRONIC. NO INDICATION FOR DIURETICS MARCOS HOSE WILL BE ORDERED WILL NEED TO KEEP LOWER EXTREMITY ELEVATED AT ALL TIMES WHILE SITTING STRICT BLOOD PRESSURE AND BLOOD SUGAR CONTROL ADDITIONAL MEASURES IS CLEAR CLINICALLY POSSIBLE DISCHARGE IN THE NEXT 24 HOURS ONCE FINAL CULTURE RESULTS OBTAINED Time Spent With Patient Critical Care time: I spent a total of [] minutes of critical care time on this patient's care today; this time is exclusive of procedural time. Quality VTE Deep Vein Thrombosis/Pulmonary Embolism Present on Admission: No
--- NOTE | 2021-06-03 14:30 | PT.IIE ---
Current Diagnoses Urinary tract infection, site not specified (06/02/21) Surgical History (Last Updated 06/03/21 @ 00:15 by BLOSSOM Bo) AV fistula Medical History (Last Updated 06/03/21 @ 00:19 by BLOSSOM Bo) Bilateral lower extremity edema Diabetes (~1995) Easy bruisability History of renal dialysis HLD (hyperlipidemia) HTN (hypertension) Kidney failure MIQUEL (obstructive sleep apnea) Osteoarthritis Overactive bladder Physical Therapy Inpatient Evaluation/Re-Eval M1 PT/OT-IP Prior Functional Status Start: 06/03/21 15:37 Freq: NEEDED Status: Active Protocol: Document 06/03/21 14:30 AB (Rec: 06/03/21 15:50 AB [id number]) Medical Review Prior Functional Status Medical History Reviewed Yes Communication able to make needs known Mobility and Gait pt stated that she is modified independent with all mobilities and ambulation without AD indoors but tends to furniture cruise; uses a 4WW for outdoor mobility when she walkds her dog but uses a SPC for outdoor shopping Social History Household Members none Living Arrangements House Number of Floors (Floors) One Floor Number of Stairs To Enter/Railing? ramp to enter Home Environment High Toilet,Tub/Shower,Ramp Home Equipment Front Wheel Walker,Four Wheel Walker,Straight Cane,Hand Held Shower,Grab Bars In Shower M2 PT-IP Current Condition Start: 06/03/21 15:37 Freq: NEEDED Status: Active Protocol: Document 06/03/21 14:30 AB (Rec: 06/03/21 15:50 AB [id number]) Physical Therapy Current Condition Current Condition Evaluation Date 06/03/21 Treatment Diagnosis UTI; syncope; difficulty in walking Onset Date 06/02/21 M3 PT-IP Subjective Start: 06/03/21 15:37 Freq: NEEDED Status: Active Protocol: Document 06/03/21 14:30 AB (Rec: 06/03/21 15:50 AB [email or web address]) Subjective Physical Therapy Visit Type Type Initial Evaluation Visit Start Time 14:30 Visit Stop Time 14:52 Total Visit Minutes 22 Number of GREEN FEED ATTENDANT Visits 0 Physical Therapy Visit Comments Patient Comments agreeable to do PT Therapy Pain Assessment Pain When Pain Assessed At Rest Pain Present Pain Present Pain Reported Location Generalized Scale Used pain scale not stated M4 PT-IP Mobility and Gait Start: 06/03/21 15:37 Freq: NEEDED Status: Active Protocol: Document 06/03/21 14:30 AB (Rec: 06/03/21 15:50 AB [id number]) PT-Bed Mobility Assessment Supine to Sit Supine to Sit Standby Assistance Sit to Supine Sit to Supine Standby Assistance PT-Transfer Assessment Sit to and From Stand Sit to and from Stand Contact Guard Assistance Equipment Transfer Assistive Device None,Gait Belt Orthotic/Prosthetic Devices or Brace: No Transfer Ability Level of Assist Contact Guard Assistance Comments Mobility Comments pt completed supine to sit SBA . able to sit on EOB SBA. completed sit to stand CGA and ambulated in room without AD CGA. pt tends to hold on to orosco/bed for support. presents with forward trunk flexion and lateral trunk lean to the R with antalgic gait. pt requested to go back to bed and have BLE elevated above her heart. positioned pt in bed. call light and table placed within reach. Pt agreed to do ambulation tomorrow and assess use of SPC /4WW. Gait Assessment Gait Gait Assistance Required: Standby Assistance,Contact Guard Assist Distance (Feet) 20 Able to Maintain Weight Bearing Status Yes During Gait Assistive Devices Assistive Device None,Gait Belt Orthotic/Prosthetic Devices or Brace: No Gait Deviations General Gait Pattern Antalgic,Flexed Trunk,Lateral Trunk Lean Factors Limiting Gait Function Factors Limiting Gait Function Decreased Activity Tolerance, Decreased Strength,Pain,Poor Balance,Poor Safety Awareness PT-Balance Assessment Sitting Balance and Reactions Static Sitting Balance Ability Normal Dynamic Sitting Balance Ability Normal Standing Balance and Reactions Static Standing Balance Ability Fair Dynamic Standing Balance Ability Fair Device Used without AD M5 PT-IP Objective Assessments Start: 06/03/21 15:37 Freq: NEEDED Status: Active Protocol: Document 06/03/21 14:30 AB (Rec: 06/03/21 15:50 AB [email or web address]) Orientation Orientation/Cognition Level of Alertness Alert Orientation Name,Age,Birthday,Month,Date, Year,Day of Week,Place, Situation Language Function Ability No Deficits Noted Safety Awareness Understands Safety Issues Memory Description No Deficits Noted Gross Range of Motion Lower Extremity ROM Assessment Within Functional Limits Impairments (+) L knee crepitus Strength Lower Extremity Strength Assessment Left Impaired Hip 4/5 Knee 4-/5 Coordination Assessment Gross Coordination Gross Coordination WNL Sensation Assessment Sensation Gross Sensation WNL Muscle Tone Muscle Tone WNL Yes M6 PT-IP Treatment Start: 06/03/21 15:37 Freq: NEEDED Status: Active Protocol: Document 06/03/21 14:30 AB (Rec: 06/03/21 15:50 AB [id number]) Physical Therapy Treatment Education Education Provided Safety M7 PT-IP Assessment and Plan Start: 06/03/21 15:37 Freq: NEEDED Status: Active Protocol: Document 06/03/21 14:30 AB (Rec: 06/03/21 15:50 AB [email or web address]) PT Summary Assessment and Plan Potential Rehabilitation Potential Fair Status of Condition at Evaluation Stable Summary Impairments Pain,ROM,Strength,Balance, Coordination,Sensation,Tone, Cognition,Bed Mobility, Transfers,Gait,Activity Tolerance Assessment Summary pt requiring SBA to CGA with mobility. will assess progress. inform pt to use AD for outdoor mobility and agreed. will assess ambulation using 4WW/SPC next tx session. Goals Bed Mobility Goal Independent Transfer Goal Independent,Cane,Four Wheeled Walker Gait Goal Independent,Cane,Four Wheel Walker Gait Distance 200 Other Goals improve ambulation without AD Independent 100 ft Days to Meet Goals 5 Frequency of Treatment Frequency Of Treatment Once a Day Treatment Plan Physical Therapy Treatment Plan Bed Mobility Training,Transfer Training,Gait Training, Therapeutic Exercise,Balance Retraining,Discharge Planning, Hot or Cold Pack,Neuromuscular Re-ed,Coordination Retraining Recommendations To Nursing Amount of Assist Needed 1 Person Assist Discharge Recommendations PT Discharge Recommendations Home with Assistance Transportation Needs at Discharge Private Vehicle
[2021-06-03] MEDS: cefTRIAXone 1,000 MG in SODIUM CHLORIDE 0.9% 100 ML 200 ML IV (18:46)
[2021-06-03] MEDS: FAMOTIDINE 20 MG TABLET PO (22:52)
[2021-06-03] MEDS: MYCOPHENOLATE 180 MG 180 EACH PO (22:57)
[2021-06-03] MEDS: INSULIN GLARGINE 100 UNIT/ML 3ML PEN 18 UNIT SUBCUT (23:02)
[2021-06-04] VITALS: BP 143/64; PULSE 88; RESP 18; TEMP 36.8; O2SAT 98
[2021-06-04 00:37] VITALS: O2SAT 98
[2021-06-04 04:00] VITALS: BP 153/64; PULSE 86; RESP 18; TEMP 36.7; O2SAT 98
[2021-06-04 05:49] LABS: Add Manual Diff / Slide Review NO; Basophils Absolute Auto 0 /uL (0-100); Basophils Percent Auto 0.5 % (0-2); Eosinophils Absolute Auto 100 /uL (0-450); Hematocrit 32.8 % (36-46); Hemoglobin 10.8 g/dL (12.0-16.0); Lymphocytes Absolute Auto 1200 /uL (1100-4500); Lymphocytes Percent Auto 13.9 % (25-40); Mean Corpuscular HGB Conc 32.9 % (30-36); Mean Corpuscular Hemoglobin 29.5 PG (26-34); Mean Corpuscular Volume 89.8 fL (80-100); Monocytes Absolute Auto 1200 /uL (0-900); Monocytes Percent Auto 14.7 % (3-14); Neutrophils Absolute Auto 5900 /uL (1500-7000); Neutrophils Percent Auto 69.9 % (50-75); Platelet Count 169 X10^3/uL (150-400); Red Blood Cell Count 3.66 X10^6/uL (4.0-5.2); Red Cell Distribution Width 14.3 % (11.6-14.8); White Blood Cell Count 8.4 X10^3/uL (4.5-11.0)
[2021-06-04 05:56] LABS: Alanine Aminotransferase 15 IU/L (<35); Albumin 3.3 g/dL (3.5-5.0); Albumin Globulin Ratio 1.4 (1.0-2.8); Alkaline Phosphatase 48 U/L (38-126); Aspartate Aminotransferase 18 IU/L (14-36); BUN Creatinine Ratio 32.4 (6-22); Bilirubin Total 0.3 mg/dL (0.2-1.3); Bilirubin Unconjugated 0.2 mg/dL (0.0-1.1); Blood Urea Nitrogen 33 mg/dL (7-17); Carbon Dioxide 26 mmol/L (22-32); Chloride 107 mmol/L (98-107); Estimated Glomerular Filt Rate 52.8 mL/min (>60); Globulin 2.4 g/dL (1.7-4.1); Glucose 143 mg/dL (80-110); HEMOLYSIS < 15 (0-50); Phosphorous 2.6 mg/dL (2.8-4.1); Potassium 4.5 mmol/L (3.4-5.1); Sodium 138 mmol/L (137-145); Total Protein 5.7 g/dL (6.3-8.2)
[2021-06-04 05:59] LABS: BUN Creatinine Ratio 30.2 (6-22); Blood Urea Nitrogen 32 mg/dL (7-17); Calcium 9.8 mg/dL (8.4-10.2); Carbon Dioxide 25 mmol/L (22-32); Chloride 108 mmol/L (98-107); Estimated Glomerular Filt Rate 50.5 mL/min (>60); Glucose 147 mg/dL (80-110); HEMOLYSIS < 15 (0-50); Magnesium 2.1 mg/dL (1.6-2.3); Potassium 4.3 mmol/L (3.4-5.1); Sodium 138 mmol/L (137-145)
[2021-06-04] MEDS: ACETAMINOPHEN 325 MG TABLET 650 MG PO (07:18)
[2021-06-04] MEDS: predniSONE 5 MG TABLET PO (07:19)
[2021-06-04] MEDS: ASPIRIN EC 81 MG TABLET PO (07:19)
[2021-06-04 07:24] VITALS: BP 153/62; PULSE 82; RESP 18; O2SAT 99
[2021-06-04] MEDS: LOSARTAN 50 MG TABLET PO (07:25)
[2021-06-04] MEDS: ENOXAPARIN 40 MG/0.4 ML SYRINGE SUBCUT (07:26)
[2021-06-04] MEDS: AMLODIPINE 5 MG TABLET PO (07:26)
[2021-06-04] MEDS: MYCOPHENOLATE 180 MG 180 EACH PO (07:27)
[2021-06-04 07:41] VITALS: O2SAT 99
[2021-06-04] MEDS: INSULIN LISPRO 100 UNIT/ML 3ML VIAL SUBCUT (08:15)
[2021-06-04] MEDS: TACROLIMUS 0.5 MG CAPSULE 3.5 MG PO (08:16)
[2021-06-04] MEDS: SODIUM CHLORIDE 0.9% FLUSH 10 ML IV (08:34)
--- NOTE | 2021-06-04 09:44 | PT.IPTN ---
Current Diagnoses Urinary tract infection, site not specified (06/02/21) Physical Therapy Treatment Note M2 PT-IP Current Condition Start: 06/03/21 15:37 Freq: NEEDED Status: Discharge Protocol: Document 06/04/21 09:07 SP (Rec: 06/04/21 14:42 SP [id number]) Physical Therapy Current Condition Current Condition Evaluation Date 06/03/21 Treatment Diagnosis UTI; syncope; difficulty in walking Onset Date 06/02/21 M3 PT-IP Subjective Start: 06/03/21 15:37 Freq: NEEDED Status: Discharge Protocol: Document 06/04/21 09:07 SP (Rec: 06/04/21 14:42 SP [id number]) Subjective Physical Therapy Visit Type Type Treatment Note Visit Start Time 09:07 Visit Stop Time 09:44 Total Visit Minutes 27 Notes ANDREW Lowe attended tx, provided education assist to STAFFING ANALYST Olamide while being directly supervised and instruct throughout tx. Number of STAFFING ANALYST Visits 1 Physical Therapy Visit Comments Patient Comments agreeable to do PT Therapy Pain Assessment Pain Present Pain Present Denied Pain M4 PT-IP Mobility and Gait Start: 06/03/21 15:37 Freq: NEEDED Status: Discharge Protocol: Document 06/04/21 09:07 SP (Rec: 06/04/21 14:42 SP [id number]) PT-Transfer Assessment Sit to and From Stand Sit to and from Stand Independent,Standby Assistance ,Use of Upper Extremities Equipment Transfer Assistive Device None,Gait Belt,Straight Cane, Front Wheeled Walker,4 Wheeled Walker Orthotic/Prosthetic Devices or Brace: No Transfers Transfer Destination Chair,Toilet Transfer Ability Level of Assist Contact Guard Assistance Comments Mobility Comments Pt was up in chair when arrived. Completed sit>stand I without AD using BUE on chair arms, antalgic gait 5 ft to bathroom w/ lateral heavy eccentric stepping CGA, demonstrated contact counter/ wall / bathroom grab bars for self support, no LOB. Pt states is how walks at home. Pt able sit<>stand from toilet I using grab bar, self pericare and doff/ don brief in sitting. STAFFING ANALYST provided SPC to walk to sink 10 ft SBA, slight wt shift antalgic gait, no LOB. Pt stood at sink unsupported to wash hands, steady safe. STAFFING ANALYST provided FWW for pt use, she complete further distance gait into hallway to stairs and back approx 130 ft total with completion of stair mgt before returning to room chair Mod I. STAFFING ANALYST provided 4WW for assessment home proper use, gait into hallway, good brake mgt and slow safe pacing Mod I . Pt was in chair end of tx. STAFFING ANALYST suggested use of her FWW at home at this time for safety support and get use of LIft Line was given by care mgt for home set up with agreement. Pt is ok to return home with friends to assist her as needed when medically cleared. Gait Assessment Gait Gait Assistance Required: Independent,Standby Assistance ,Contact Guard Assist Distance (Feet) 130 Able to Maintain Weight Bearing Status Yes During Gait Assistive Devices Assistive Device None,Gait Belt,Straight Cane, Front Wheeled Walker,4 Wheeled Walker Orthotic/Prosthetic Devices or Brace: No Gait Deviations General Gait Pattern Antalgic,Flexed Trunk,Lateral Trunk Lean Factors Limiting Gait Function Factors Limiting Gait Function Decreased Activity Tolerance, Decreased Strength,Pain,Poor Safety Awareness Comments Gait Comments See mobility comments. Stair Climbing Assessment Evaluation Level of Assist On Stairs Standby Assistance,Contact Guard Assistance Devices Stair Climbing Assistive Devices Left Railing,Right Railing Technique/Endurance Stair Climbing Direction Ascend and Descend Stair Climbing Technique Step to Step Number of Steps Climbed 3 Stair Climbing Set # Repetitions (reps) 1 Comments Stair Climbing Comments Pt reports has ramp at home with use of FWW or 4WW but uses the stairs to go down at times so willing to try and has utility cabinet on both side to support self 2 steps. Completed B HR steady CG initially then progressed SBA, Moderate UE WB support. PT-Balance Assessment Sitting Balance and Reactions Static Sitting Balance Ability Normal Dynamic Sitting Balance Ability Normal Standing Balance and Reactions Static Standing Balance Ability Good Dynamic Standing Balance Ability Poor Device Used without AD, Fair with SPC, Good with FWW M5 PT-IP Objective Assessments Start: 06/03/21 15:37 Freq: NEEDED Status: Discharge Protocol: Document 06/03/21 14:30 AB (Rec: 06/03/21 15:50 AB [id number]) Orientation Orientation/Cognition Level of Alertness Alert Orientation Name,Age,Birthday,Month,Date, Year,Day of Week,Place, Situation Language Function Ability No Deficits Noted Safety Awareness Understands Safety Issues Memory Description No Deficits Noted Gross Range of Motion Lower Extremity ROM Assessment Within Functional Limits Impairments (+) L knee crepitus Strength Lower Extremity Strength Assessment Left Impaired Hip 4/5 Knee 4-/5 Coordination Assessment Gross Coordination Gross Coordination WNL Sensation Assessment Sensation Gross Sensation WNL Muscle Tone Muscle Tone WNL Yes M6 PT-IP Treatment Start: 06/03/21 15:37 Freq: NEEDED Status: Discharge Protocol: Document 06/04/21 09:07 SP (Rec: 06/04/21 14:42 SP [id number]) Physical Therapy Treatment Education Education Provided Safety M7 PT-IP Assessment and Plan Start: 06/03/21 15:37 Freq: NEEDED Status: Discharge Protocol: Document 06/04/21 09:07 SP (Rec: 06/04/21 14:42 SP [id number]) PT Summary Assessment and Plan Potential Rehabilitation Potential Fair Status of Condition at Evaluation Stable Summary Impairments Pain,ROM,Strength,Balance, Coordination,Sensation,Tone, Cognition,Bed Mobility, Transfers,Gait,Activity Tolerance Progress Towards Goals Progressing Toward Goals,Slow Progress due to Activity Tolerance Assessment Summary Pt I sit<>stand use of UEs. CGA no AD, SBA use of SPC and Mod I use of FWW/ 4WW. STAFFING ANALYST recommended use of AD at this time and HHPT to progress dynamic functional activity strengthening wtih pt in agreement. Pt is ok to return home with friends to assist her as needed. Pt would benefit from Lymphedema referral for assist BLEs. Goals Bed Mobility Goal Independent Transfer Goal Independent,Cane,Four Wheeled Walker Gait Goal Independent,Cane,Four Wheel Walker Gait Distance 200 Other Goals improve ambulation without AD Independent 100 ft Days to Meet Goals 5 Frequency of Treatment Frequency Of Treatment Once a Day Treatment Plan Physical Therapy Treatment Plan Bed Mobility Training,Transfer Training,Gait Training, Therapeutic Exercise,Balance Retraining,Discharge Planning, Hot or Cold Pack,Neuromuscular Re-ed,Coordination Retraining Other Recommendations and Next Treatment LE ex, balance activities, Focus gait further distance. Recommendations To Nursing Amount of Assist Needed Independent Discharge Recommendations PT Discharge Recommendations Home with Assistance,Home Health Other Discharge Recommendations Pt has SPC, FWW, 4WW, no needs . Transportation Needs at Discharge Private Vehicle
--- NOTE | 2021-06-04 10:26 | P.DS_ITS ---
History of Present Illness History of Present Illness Date Patient Seen: 06/04/21 Chief complaint: syncope and fever Narrative: Darleen Dodge is a 75-year-old female with a history of a kidney transplant 2 years ago, diabetes type 2, hypertension, hyperlipidemia, and lower extremity edema was sent to the emergency department by her PCP's office via ambulance for further evaluation and treatment of UTI.? She states her symptoms started at midnight it would be 24 hours ago and had the chills and was urinating every 15 minutes.? She states it has been about 4 oz at a time.? Then call Dr. John's office and was seen mid afternoon earlier today.? When she was getting ready to leave the clinic she was sitting on the table and her PCP advised her that she needs to leave in a wheelchair because she did not seem to be ambulating steadily.? When her friend arrived with a wheelchair the patient apparently stood up and passed out and ended up on the floor.? Both her PCP and her friend tried to get her off the floor to wake up.? Then they were older on her side because she started the vomit bile.? She stated that she had not had anything all day to eat.? That was when they decided to call an ambulance and bring her to the hospital.? She did have a fever this morning and had been taking Tylenol.? She states that she gets migraines when she gets UTI so she was also taking the Tylenol to prophylax any common migraine that might happen.? She does complain of having loose stools.? She did have fever on admission.? Prior to her presenting to her PCPs she did have burning urination and was getting up frequently in the middle night every 15 minutes to urinate.? She denied short ness of breath, abdominal pain, constipation, she does have pain from the swelling in her feet and legs.? Patient sees a plumber's helper as well as a cafeteria associate for her diabetes.? She states she has had chronic lower leg swelling and in the past when she has urinated she feels a difference in the amount of fluids in her legs.? She states that the multiple family members have had this and no one's of her figured out why or how to treat it.? She does states she wears compression stockings at home.? She has chronic dysuria where she is incontinent of urine.? She did have an echocardiogram done in June of 2020 in advance of knee replacement surgery.? She had a normal ejection fraction of 65-70% and question a relaxation abnormality of the left ventricle with normal filling pressures.? They also indicated she might have a bicuspid aortic valve with [id number] aortic stenosis. Chest x-ray done in the ER was negative for any acute cardiopulmonary process though question whether she might be developing a pneumonia.? T max was 99.9, it is currently 97.1, blood pressure 145/64, heart rate 83, respiratory rate 16, oxygen saturation 97% on room air she weighs 97.5 kilos with a BMI of 33.6.? She does have an elevated white count of 15.2, RBC 3.97 she is mildly anemic with a hemoglobin and hematocrit of 11.7 and 35.5 respectively, she has left shift 13,000, sodium was 134, BUN 31, creatinine 1.09, GFR is 48.9, glucose 263, A1c was 5.9, lactate 1.6, proBNP is 26 50, UA is positive for UTI and cultures pending, COVID-19 PCR is negative. Discharge Providers Provider Date of admission: 06/02/21 20:45 Discharge Date: 06/04/21 Primary care physician: Octavio Cevallos MD Consults: 06/03/21 10:09 Consult to Physical Therapy Evaluate & Treat Comment: Physician Instructions: Evaluate and Treat Discharge provider: Anayeli Ferrell DO Summary Hospital Course Discharge Diagnosis: GRAM-NEGATIVE RODS UTI. DISCHARGE ON OMNICEF ACUTE ON CHRONIC KIDNEY DISEASE. HISTORY OF KIDNEY TRANSPLANT HYPERTENSION FOR HISTORY INSULIN-DEPENDENT DIABETES PER HISTORY OBESITY WITH A BMI OF 33 Hospital Course: THIS IS A VERY PLEASANT 75-YEAR-OLD FEMALE ADMITTED AFTER WHAT WAS REPORTED TO BE A SYNCOPAL EVENT WHICH WAS ATTRIBUTED TO A UTI. PATIENT IS GROWING GRAM-NEGATIVE RODS IN THE URINE CULTURE WHICH IS LIKELY IS SIMILAR TO A PREVIOUS INFECTION. SHE WAS TREATED LAST YEAR FOR UR TRACT INFECTION. PANSENSITIVE E COLI NOTED ON CULTURE RESULTS. SHE HAS RESPONDED WELL TO ROCEPHIN. SHE WILL BE DISCHARGED ON OMNICEF. KIDNEY FUNCTION APPEARED TO BE AT BASELINE. ELECTROLYTES ARE HOLDING WELL. ACID-BASE DYSFUNCTION NOTED AT THIS TIME. SHE AT BASELINE MENTALLY AND PHYSICALLY. NO REPORTED SYNCOPAL EPISODE DURING THE HOSPITAL STAY. TO BE DISCHARGED TO HOME. ADDITIONAL MEASURE BE DEFERRED TO OUTPATIENT PROVIDERS Status at Discharge Cognitive/behavioral status at discharge: oriented Functional status at discharge: independent ambulation Overall status at discharge: patient is back to baseline Exam Vital Signs (past 8 hours): - 06/04/21 04:00 06/04/21 07:24 06/04/21 07:41 Temperature 98.0 F Pulse Rate 86 82 Respiratory Rate 18 18 Blood Pressure 153/64 H 153/62 H Pulse Oximetry 98 99 99 Oxygen Delivery Method Room Air Oxygen Flow Rate 0 Narrative Exam Narrative: NO ACUTE DISTRESS.? PATIENT IS ALERT ORIENTED X3. VITAL SIGNS STABLE HEAD ATRAUMATIC NORMOCEPHALIC NECK : SUPPLE WITHOUT ADENOPATHY NO CAROTID BRUITS EYE:? EOMI, PERRLA, NORMAL CONJUNCTIVA; NO JAUNDICE CHEST:? REGULAR RATE.? ? NO RUBS.? PMI IS NON DISPLACED.? NO MURMURS; NORMAL S1- S2 PULMONARY:? DECREASED BS OVER THE BASES.? MILD BIBASILAR CRACKLES NOTED; NO INCREASED DULLNESS TO PERCUSSION ABDOMEN:? SOFT.? NONTENDER.? NONDISTENDED.? BOWEL SOUNDS ARE PRESENT IN ALL 4 QUADRANTS.? NO MASS. EXTREMITIES:? NONPITTING BILATERAL LOWER EXTREMITY 3+ EDEMA..? NO CYANOSIS CLUBBING NOTED. NEURO:? CRANIAL NERVES 2-12 GROSSLY INTACT. NO FOCAL NEUROLOGICAL DEFICIT NOTED. MSK:? NORMAL RANGE OF MOTION FOR AGE.? NO JOINT EFFUSION. SKIN:? NORMAL FOR ETHNICITY; NO ECCHYMOSIS.? NO LESION. ? GOOD? TURGOR.; NO RASHES :? NORMAL EXTERNAL GENITALIA. PSYCH :? APPROPRIATE MOOD AND AFFECT.? ALERT AWAKE ORIENTED X3 Objective Labs Result Diagrams: 06/04/21 05:05 06/04/21 05:05 Labs: Laboratory Results - last 24 hr 06/04/21 06/04/21 06/04/21 05:05 05:05 05:05 WBC 8.4 RBC 3.66 L Hgb 10.8 L Hct 32.8 L MCV 89.8 MCH 29.5 MCHC 32.9 RDW 14.3 Plt Count 169 Neut % (Auto) 69.9 Lymph % (Auto) 13.9 L Pope % (Auto) 14.7 H Eos % (Auto) 1.0 L Baso % (Auto) 0.5 Neut # (Auto) 5900 Lymph # (Auto) 1200 Pope # (Auto) 1200 H Eos # (Auto) 100 Baso # (Auto) 0 Sodium 138 138 Potassium 4.3 4.5 Chloride 108 H 107 Carbon Dioxide 25 26 BUN 32 H 33 H Creatinine 1.06 H 1.02 Estimated GFR 50.5 L 52.8 L BUN/Creatinine Ratio 30.2 H 32.4 H Glucose 147 H 143 H Calcium 9.8 10.0 Phosphorus 2.6 L Magnesium 2.1 Total Bilirubin 0.3 Conjugated Bilirubin 0.0 Unconjugated Bilirubin 0.2 AST 18 ALT 15 Alkaline Phosphatase 48 Total Protein 5.7 L Albumin 3.3 L Globulin 2.4 Albumin/Globulin Ratio 1.4 PFSH Medical History (Updated 06/03/21 @ 00:19 by BLOSSOM Bo) Bilateral lower extremity edema Diabetes (~1995) Easy bruisability History of renal dialysis HLD (hyperlipidemia) HTN (hypertension) Kidney failure MIQUEL (obstructive sleep apnea) Osteoarthritis Overactive bladder Surgical History (Updated 06/03/21 @ 00:15 by BLOSSOM Bo) AV fistula History of hysterectomy History of kidney transplant (2018) Hx of bilateral cataract extraction Hx of dilation and curettage Family History (Updated 06/03/21 @ 00:16 by BLOSSOM Bo) Mother Diabetes mellitus Father Cancer Social History household members: none Smoking Status: Never smoker alcohol intake: never Discharge Plan Discharge Plan Patient Disposition: Home Discharge orders & Medications Prescriptions: New cefdinir 300 mg capsule 300 mg PO BID Qty: 14 0RF High Potency Probiotic 112.5 billion cell capsule 1 cap PO BID Qty: 30 0RF Continued losartan 50 mg Tablet 50 mg PO BID 0RF carvedilol 6.25 mg Tablet 12.5 mg PO BID 0RF amlodipine 5 mg Tablet 5 mg PO BID 0RF aspirin 81 mg Tablet,Delayed Release (Dr/Ec) 81 mg PO DAILY 0RF tacrolimus 1 mg Capsule 3.5 mg BID 0RF insulin lispro [Humalog KwikPen Insulin] 100 unit/mL Insulin Pen 6 - 9 unit SUBCUT TID 0RF mycophenolate sodium 360 mg Tablet,Delayed Release (Dr/Ec) 180 mg PO BID 0RF Lantus Solostar U-100 Insulin 100 unit/mL (3 mL) Insulin Pen 11 unit SUBCUT BEDTIME 0RF Trulicity 1.5 mg/0.5 mL Pen Injector 1.5 mg SUBCUT QWEEK 0RF Label Comments: Every Tuesday lysine 1,000 mg Tablet 1,000 mg PO BID 0RF prednisone 5 mg Tablet 5 mg PO DAILY 0RF Medication counseling provided by Pharmacist: No Follow up/Referrals: Octavio Cevallos MD [Primary Care Provider] - Diet/Activity/Treatments Diet: Low-fat, Low-sodium, Low-cholesterol and Low-protein/Renal Activity: TOLERATED Skin/Wound/Dressing Care Report to your healthcare provider any signs of infection, such as:: chills, fever, night sweats, increased pain and unusual redness Discharge Data Primary Care Provider: Octavio Cevallos Quality VTE Deep Vein Thrombosis/Pulmonary Embolism Present on Admission: No
--- NOTE | 2021-06-04 11:18 | PC.NURSE ---
Went over dc instructions and medications with patient,questions answered. Patient taken via wc to vehicle driven by friend. Patient had all belongings. Returned patients home meds from pharmacy.
== END 2021-06-04 11:20 | disposition home or self-care (01) | DRG 690 ==
LOC: ED 20:45 → AC 20:45
PROVIDERS: Emergency Medicine; Admitting Provider Nurse Practitioner Family; Emergency Provider Emergency Medicine; PCP Family Medicine; Referring Provider Emergency Medicine; Visit Provider Nurse Practitioner Family
DX: N39.0 Urinary tract infection, site not specified (principal); Z94.0 Kidney transplant status; D84.9 Immunodeficiency, unspecified; R60.0 Localized edema; N18.9 Chronic kidney disease, unspecified; E11.22 Type 2 diabetes mellitus with diabetic chronic kidney disease; I12.9 Hypertensive chronic kidney disease with stage 1 through stage 4 chronic kidney disease, or unspecified chronic kidney disease; B96.20 Unspecified Escherichia coli [E. coli] as the cause of diseases classified elsewhere; Z20.822 Contact with and (suspected) exposure to COVID-19; Z79.4 Long term (current) use of insulin; Z79.84 Long term (current) use of oral hypoglycemic drugs
CPT/HCPCS: 36415; 71045; 80048; 80053; 80069; 80076; 81003; 81015; 82550; 82962; 83036; 83605; 83690; 83735; 83880; 84145; 84484; 85025; 85610; 85730; 87040; 87077; 87086; 87186; 87635; 93005; 94760; 96365; 97116; 97161; 97530; 99284; C9803; A9270; J0696; J1650; J1815; J7507

== ENCOUNTER → 2021-08-18 13:06 | Outpatient (CLI) | payer MEDICARE, SELFPAY ==
[2021-06-02 22:29] VITALS: BMI 33.6
--- NOTE | 2021-08-18 13:09 | DI.MRI.S_ITS ---
PROCEDURE: MR KNEE LT WO CON INDICATIONS: Bilateral primary osteoarthritis of knee TECHNIQUE: Noncontrast sagittal PD fast spin echo and T2 fast spin echo with fat saturation, sagittal 3-D FLASH with fat saturation; coronal T1 spin echo and PD fast spin echo with fat saturation, and axial PD fast spin echo with fat saturation through the knee. COMPARISON: [facility], MR, MR KNEE RT WO CON, 12/24/2020, 11:43. [facility] [place], CR, XR KNEE ARTHRITIC SERIES BI, 10/01/2020, 8:52. FINDINGS: Image quality: Excellent. Menisci: Linear oblique high signal intensity traverses the medial meniscal body and posterior horn, demonstrating inferior articular surface extension, indicating oblique tearing. Lateral extrusion of the lateral meniscus is present. There is linear and amorphous high signal intensity within the anterior horn, body, and posterior horn lateral meniscus, demonstrating superior and inferior articular surface extension. Fragmentation of the lateral meniscus is present. Cruciate ligaments: The anterior and posterior cruciate ligaments appear intact. Moderate T2 signal elevation along the course of the anterior cruciate ligament. Medial structures: The medial collateral ligament appears intact. Visualized portions of the pes anserinus tendons appear normal. No abnormal bursal fluid. Lateral structures: The lateral collateral ligament, long and short heads of the biceps femoris tendon appear intact. The popliteus tendon appears normal. Iliotibial band appears normal. Anterior structures: The quadriceps and patellar tendons appear intact. Patellar alignment is normal. No femoral trochlear dysplasia or ventral trochlear prominence. No edema in the infrapatellar fat pad. Bones and cartilage: No bone marrow contusions or fractures. Mild subchondral degenerative marrow edema within the anterior weight-bearing aspects of the lateral femoral condyle and lateral tibial plateau. Mild tricompartmental periarticular osteophyte formation. Severe articular cartilage loss diffusely overlies the weight-bearing aspects of the medial and lateral compartments. Moderate articular cartilage loss overlies the medial and lateral patellar facets. Joint space: There is a small knee joint effusion and a moderate Quezada's cyst. There is a ganglion cyst measuring 25 mm adjacent to the lateral head of the gastrocnemius. Normal appearing synovial plicae are incidentally noted. IMPRESSION: 1. Tricompartmental osteoarthritis with associated articular cartilage loss. 2. Medial and lateral meniscal tearing. 3. Myxoid degeneration of the anterior cruciate ligament. 4. Knee joint effusion, Quezada's cyst, and ganglion cyst adjacent to the lateral head of the gastrocnemius. Dictated by: Jurgen Jones M.D. on 08/18/2021 at 14:37 Approved by: Jurgen Jones M.D. on 08/18/2021 at 14:40
== END ==
PROVIDERS: PCP Family Medicine; Referring Provider Orthopaedic Surgery; Visit Provider Orthopaedic Surgery
DX: S83.242A Other tear of medial meniscus, current injury, left knee, initial encounter (principal); S83.282A Other tear of lateral meniscus, current injury, left knee, initial encounter; M17.0 Bilateral primary osteoarthritis of knee; M25.462 Effusion, left knee; M71.22 Synovial cyst of popliteal space [Baker], left knee; M67.462 Ganglion, left knee
CPT/HCPCS: 73721

== ENCOUNTER → 2021-10-07 12:29 | Outpatient (CLI) | payer MEDICARE, SELFPAY ==
[2021-06-02 22:29] VITALS: BMI 33.6
--- NOTE | 2021-10-07 | DI.MRI.S_ITS ---
PROCEDURE: MR KNEE LT WO CON INDICATIONS: Unilateral primary osteoarthritis, left knee TECHNIQUE: Noncontrast sagittal T2 fast spin echo with fat saturation, sagittal 3-D FLASH with fat saturation, sagittal large [id number] thin slice sagittal PD fast spin echo; coronal T1 spin echo and PD fast spin echo with fat saturation, and axial PD fast spin echo with fat saturation through the knee. COMPARISON: [facility] [place], CR, XR BONE LENGTH SCANOGRAM, 09/15/2021, 9:27. [facility], CR, XR KNEE ARTHRITIC SERIES BI, 08/06/2021, 13:37. [facility], MR, MR KNEE LT WO CON, 08/18/2021, 13:23. FINDINGS: Image quality: Excellent. Anterior Cruciate Ligament: Moderate mucoid degeneration. The bulk of the ligament fibers are intact.. Posterior Cruciate Ligament: Intact. Medial Collateral Ligament: Intact. Lateral Collateral Ligament: Intact. Medial Meniscus: Horizontal oblique tearing of the medial meniscus extending to the inner third of the tibial articular surface is again seen at the body and posterior horn. Lateral Meniscus: There is complex degenerative tearing and maceration of the lateral meniscus with a diminutive residual rim of meniscal tissue. Medial and Lateral Tendons: The semimembranosus tendon insertions and meniscocapsular junction appear intact. Visualized portions of the pes anserinus tendons appear normal. No abnormal bursal fluid. The long and short heads of the biceps femoris tendon appear intact. The popliteus tendon appears intact. No signs of posterolateral corner injury. Iliotibial band appears normal. Anterior Structures: Distal quadriceps and patellar tendinosis is seen. No patellar subluxation. No femoral trochlear dysplasia or ventral trochlear prominence. No edema in the infrapatellar fat pad. Bones: No acute trabecular bone injury or fracture. Medial Femorotibial Cartilage: Generalized cartilage thinning with areas of high-grade and possibly full-thickness cartilage loss throughout the weight-bearing portions. Marginal osteophytes are present. Lateral Femorotibial Cartilage: Diffuse full-thickness cartilage loss with subchondral edema, marginal osteophyte formation, and remodeling of the lateral tibial plateau articular surface. Patellofemoral Cartilage: Generalized moderate grade partial-thickness cartilage thinning. Small marginal osteophytes are present. Soft Tissues: Moderate joint effusion with mild synovial hypertrophy. A moderate medial popliteal cyst is present. Posterior pericapsular ganglion cyst is seen posterior to the lateral femoral condyle measuring approximately 2 x 2 x 1.8 cm with mild surrounding soft tissue edema. Multiple small lobular ganglion cysts are seen adjacent to the origins of the medial and lateral gastrocnemius muscles. There is mild generalized grade 2 fatty infiltration of the musculature surrounding the knee. IMPRESSION: 1. Tricompartmental osteoarthrosis is worst in the lateral compartment where there is diffuse full-thickness cartilage loss, subchondral edema, and remodeling of the lateral tibial plateau articular surface. Grade 3-4 chondromalacia is seen in the medial compartment and there is grade 3 chondromalacia in the anterior compartment. Tricompartmental marginal osteophytes. 2. Diffuse maceration and degenerative tearing of the lateral meniscus. Horizontal oblique tearing of the posterior horn and body of the medial meniscus extending to the tibial articular surface. 3. Chronic anterior cruciate ligament degeneration. The bulk of the ligament fibers are intact. 4. Patellar and distal quadriceps tendinosis. 5. Moderate joint effusion. Moderate medial popliteal cyst. Multiple pericapsular ganglion cysts. Dictated by: Juvenal Dial M.D. on 10/07/2021 at 14:29 Approved by: Juvenal Dial M.D. on 10/07/2021 at 14:40
== END ==
PROVIDERS: PCP Family Medicine; Referring Provider Orthopaedic Surgery; Visit Provider Orthopaedic Surgery
DX: M17.12 Unilateral primary osteoarthritis, left knee (principal); S83.242A Other tear of medial meniscus, current injury, left knee, initial encounter; S83.282A Other tear of lateral meniscus, current injury, left knee, initial encounter; M94.262 Chondromalacia, left knee; M25.462 Effusion, left knee; M71.22 Synovial cyst of popliteal space [Baker], left knee; M67.462 Ganglion, left knee
CPT/HCPCS: 73721

== ENCOUNTER → 2021-11-18 09:13 | Outpatient (CLI) | payer MEDICARE, SELFPAY ==
[2021-06-02 22:29] VITALS: BMI 33.6
[2021-11-18 11:25] LABS: COVID19 -Nasal RAPID Negative (Negative)
== END ==
PROVIDERS: PCP Family Medicine; Visit Provider Family Medicine Sleep Medicine
DX: Z20.822 Contact with and (suspected) exposure to COVID-19 (principal)
CPT/HCPCS: 87635; C9803

== ENCOUNTER 2021-11-20 14:55 | Inpatient (IN) | payer MEDICARE, SELFPAY ==
[2021-06-02 22:29] VITALS: BMI 33.6
[2021-11-10 08:35] VITALS: BMI 34.9
[2021-11-19] VITALS (15 sets, daily range): BP systolic 132–164; BP diastolic 54–88; PULSE 64–78; RESP 12–18; TEMP 35.6–36.6; O2SAT 93–98; BMI 35.9; BMI 38.5
--- NOTE | 2021-11-19 08:22 | DI.RAD.S_ITS ---
PROCEDURE: XR KNEE LT 1TO2V INDICATIONS: TKA TECHNIQUE: To view(s) of the knee acquired. COMPARISON: None. FINDINGS: Bones: Patient is status post knee joint arthroplasty. Hardware components are in expected positions. Visualized bony structures are intact. Soft tissues: Overlying postoperative changes are noted. IMPRESSION: Expected postsurgical change for left knee arthroplasty. Dictated by: Nubia Burden MD, PhD on 11/19/2021 at 16:34 Approved by: Nubia Burden MD, PhD on 11/19/2021 at 16:35
[2021-11-19] MEDS: ACETAMINOPHEN 325 MG TABLET 975 MG PO (09:38)
[2021-11-19] MEDS: LACTATED RINGERS 1,000 ML 84 ML IV (09:46)
[2021-11-19] MEDS: VANCOMYCIN 1,000 MG/200 ML PIGGYBACK 200 MG IV (09:46)
--- NOTE | 2021-11-19 10:12 | PM.PREOP ---
Pre-operative Note COVID-19 COVID-19 status: Negative Interval Note History & Physical reviewed/Exam performed by Physician: Yes Changes to H&P: No
[2021-11-19] MEDS: CEFAZOLIN 2 GM/20 ML SYRINGE IV ×2 (11:01→18:10)
[2021-11-19] MEDS: TRANEXAMIC ACID 1,000 MG VIAL 2000 MG INJ ×2 (11:02→12:27)
[2021-11-19] MEDS: BUPIVACAINE LIPOSOME 266 MG/20 ML VIAL INJ (11:20)
[2021-11-19] MEDS: BUPIVACAINE 0.25% (PF) 60 ML, EPINEPHrine 0.3 MG INJ (11:21)
[2021-11-19] MEDS: ONDANSETRON 4 MG/2 ML INJ IV (13:08)
[2021-11-19] MEDS: OXYCODONE IR 5 MG TABLET PO ×2 (13:19→21:51)
--- NOTE | 2021-11-19 13:43 | SUR.PHASEI ---
SBAR report called to Hector WILLAMS. Pt awake, alert and tolerated apple sauce and oxycodone. Transferred with belongings and walker and blood glucose monitor in place. Pt transferred to floor by Katharine WILLAMS.
--- NOTE | 2021-11-19 13:49 | SUR.PHASEI ---
Notified Dr Bennett regarding blood sugar 194.
[2021-11-19] MEDS: LACTATED RINGERS 1,000 ML 100 ML IV (14:41)
[2021-11-19] MEDS: INSULIN LISPRO 100 UNIT/ML 3ML VIAL 6 UNIT SUBCUT (17:14)
[2021-11-19] MEDS: ACETAMINOPHEN 325 MG TABLET 650 MG PO ×2 (17:14→23:12)
--- NOTE | 2021-11-19 17:43 | P.OP_ITS ---
Operative Date/Time/Diagnoses Date of procedure: 11/19/21 Time of procedure: 11:00 Pre-op diagnosis: Left total knee arthroplasty Post-op diagnosis: same Procedure & Clinicians Procedure: Left total knee arthroplasty Same procedure as scheduled: Yes Indications: The patient has had progressively worsening left knee pain with radiographic mitali nges consistent with arthritis. Non-operative management has failed and the patient has requested total knee replacement. The risks, benefits and alternatives to surgery were discussed with the patient prior to proceeding. Risks discussed included, but were not limited to, failure to relieve pain, stiffness, infection, nerve damage, deep venous thrombosis, pulmonary embolism, stroke, coma, heart attack, permanent paralysis and , as well as the potential need for eventual revision of the prosthetic. Surgeon: Tonia Bennett Senior Business Architect: Kwaku Georges Anesthesia Type: General and Spinal Operative Notes Findings: Severe left knee osteoarthritis. Closure Type: primary Specimen(s): none sent Prosthetic devices, grafts, tissues, transplants, or devices: [facility] [employer] [facility] BCS 2 size 5 femur, size 5 tibia, +9 poly, 35 x 7.5 mm patella Applied: drain(s) Estimated Blood Loss (mL): 250 Blood products transfused: none Tourniquet time (min): 14 Procedure in detail: The patient was seen in the pre-operative area, where the patient identified the left knee as the operative site and this was marked with my initials. The patient received pre-operative antibiotics, and was taken to the operating room and placed on the operative table in the supine position. After satisfactory anesthesia, a multimedia journalist out was performed. The left leg was encircled with a tourniquet about the proximal thigh, and the leg was prepared from the toes to the tourniquet with ChloroPrep in the usual fashion and draped through sterile drapes. The leg was elevated and exsanguinated with Eschmark bandage and the tourniquet inflated to [250] mmHg pressure. The knee was approached through an approximately 18 cm incision centered over the patella and carried into the knee through a medial parapatellar arthrotomy. A portion of the medial and lateral meniscus was resected. Soft tissue was carefully mobilized around the patella the patella was measured with a caliper. Bone was resected from the patella and the patellar height was reconstituted with up an appropriate sized patellar component. A cover was then placed on the patella. The vert tourniquet was clearly a venous tourniquet was deflated early in the procedure and left down. We did open an Aqua Mantis in order to provide adequate hemostasis. A small amount of additional medial and lateral meniscus was resected. The distal femur was cut at 5?. A [+2] cut was used. It looked like an appropriate distal femoral cut and the cut was made without difficulty. An extramedullary guide was used for the tibial cut. 10 mm was resected off the least affected side. It was a minimal cut on the lateral side as she had preoperative valgus. The tibia was prepared. The rotation was assessed. The patient was placed in extension residual medial and lateral meniscus as well as any residual bone was carefully resected. [No] additional tibia was resected. Hemostasis was achieved especially posteriorly. Additional local was injected into the posterior capsule. The extension gap was assessed and additional releases for gap balancing were performed as necessary. It was checked with the gap calculating machine operator. The femoral component was trial was placed and the notch was finished. The rotation was assessed and the appropriate size femoral guide was placed on the distal femur and finishing cuts were made. There was no evidence of notching. The anterior, posterior and chamfer cuts were then made. The posterior osteophytes and soft tissues were then removed. The posterior capsule was injected with part of a mixture of 60 ml 0.25% Marcaine mixed with 20 ml Exparel for post operative pain control. The remainder of this mixture was injected into the capsule and subcutaneous tissues during cement curing. The tibial and femoral components were then placed and the knee placed through a range of motion. Range of motion was [0-130], with good stability throughout the range. The trials were then removed, and the tibia was finished. The bone was prepared with pulsatile lavage, and dried with a sponge. Cement was applied and the final prosthetics placed. Excess cement was removed during and after cement curing. A brief Betadine soak was performed. After confirming there was no extruded cement posteriorly, the final tibial insert was placed. The knee was copiously irrigated and the tourniquet deflated. Hemostasis was obtained with the [Aquamantys system]. A drain was placed and brought out superolaterally. The capsule was closed with interrupted nonabsorbable suture. The subcutaneous layer was closed with barbed sutures, and the skin with a running 3-0 V-Lock suture and skin louis. A serina dressing was applied and the patient was taken to recovery having tolerated the procedure well. Complications: none Post-operative Condition: stable Disposition: Acute Care Plan for aftercare: The patient will be maintained on a standard total knee replacement protocol with weight bearing as tolerated. The patient will receive aspirin and sequential compression devices for DVT prophylaxis. The patient will be discharged home when safe for the home environment.
[2021-11-19] MEDS: TACROLIMUS 1 MG 4 EACH PO (20:08)
[2021-11-19] MEDS: MYCOPHENOLIC 360 MG 360 EACH PO (20:08)
[2021-11-19] MEDS: carvediloL 12.5 MG TABLET PO (20:10)
[2021-11-19] MEDS: ASPIRIN EC 81 MG TABLET PO (20:11)
[2021-11-19] MEDS: DOCUSATE 100 MG CAPSULE PO (20:11)
[2021-11-19] MEDS: LOSARTAN 50 MG TABLET PO (20:11)
[2021-11-19] MEDS: INSULIN GLARGINE 100 UNIT/ML 3ML PEN 11 UNIT SUBCUT (21:09)
[2021-11-20 00:39] VITALS: BP 134/60; PULSE 67; RESP 18; TEMP 36.6; O2SAT 100
[2021-11-20] MEDS: OXYCODONE IR 5 MG TABLET PO ×2 (01:19→08:16)
[2021-11-20] MEDS: CEFAZOLIN 2 GM/20 ML SYRINGE IV (02:39)
[2021-11-20 04:00] VITALS: BP 146/69; PULSE 76; RESP 18; TEMP 36.6; O2SAT 100
[2021-11-20] MEDS: ACETAMINOPHEN 325 MG TABLET 650 MG PO ×2 (05:54→17:36)
[2021-11-20] MEDS: OXYCODONE IR 10 MG TABLET PO ×5 (05:54→21:00)
[2021-11-20 06:49] LABS: Hematocrit 28.5 % (36-46); Hemoglobin 9.3 g/dL (12.0-16.0)
[2021-11-20] MEDS: ASPIRIN EC 81 MG TABLET PO ×2 (08:06→20:57)
[2021-11-20 08:07] VITALS: BP 156/72; PULSE 70
[2021-11-20] MEDS: LOSARTAN 50 MG TABLET PO ×2 (08:07→21:08)
[2021-11-20] MEDS: carvediloL 12.5 MG TABLET PO ×2 (08:07→21:07)
[2021-11-20] MEDS: AMLODIPINE 5 MG TABLET PO (08:07)
[2021-11-20] MEDS: predniSONE 5 MG TABLET PO (08:07)
[2021-11-20] MEDS: TACROLIMUS 1 MG 4 EACH PO ×2 (08:08→20:57)
[2021-11-20] MEDS: MYCOPHENOLIC 360 MG 360 EACH PO ×2 (08:08→20:57)
[2021-11-20] MEDS: polyethylene glycoL 3350 17 GM POWD.PACK PO (08:08)
[2021-11-20] MEDS: DOCUSATE 100 MG CAPSULE PO ×2 (08:08→21:07)
[2021-11-20] MEDS: INSULIN LISPRO 100 UNIT/ML 3ML VIAL 6 UNIT SUBCUT (08:08)
--- NOTE | 2021-11-20 08:34 | PM.DS.1 ---
History of Present Illness History of Present Illness Date Patient Seen: 11/20/21 Time Patient Seen: 08:34 Chief complaint: LT TKA *OPB* Narrative: Pain is been moderate to severe. Denies fever or chills. No nausea vomiting. Patient has her daughter home and available to assist her. Discharge Providers Provider Discharge Date: 11/20/21 Primary care physician: Octavio Cevallos MD Consults: 11/19/21 08:22 Consult to Anesthesiology Routine Comment: Consulting Provider: Anesthesiologist Reason for consultation: Regional block for post operative pain control 11/19/21 14:16 Consult to Discharge Planning Routine Comment: Consult to Physical Therapy Evaluate & Treat Comment: Physician Instructions: postop TKA protocol Consult to Respiratory Therapy Evaluate & Treat Comment: Physician Instructions: Evaluate and treat Discharge provider: Kwaku Georges PA-C Summary Hospital Course Discharge Diagnosis: Left knee osteoarthritis Hospital Course: Left total knee arthroplasty Same procedure as scheduled: Yes Indications: The patient has had progressively worsening left knee pain with radiographic changes consistent with arthritis. Non-operative management has failed and the patient has requested total knee replacement. The risks, benefits and alternatives to surgery were discussed with the patient prior to proceeding. Risks discussed included, but were not limited to, failure to relieve pain, stiffness, infection, nerve damage, deep venous thrombosis, pulmonary embolism, stroke, coma, heart attack, permanent paralysis and , as well as the potential need for eventual revision of the prosthetic. Surgeon: Tonia Bennett Digital Camera Technician: Kwaku Georges Anesthesia Type: General and Spinal Operative Notes Findings: Severe left knee osteoarthritis. Closure Type: primary Specimen(s): none sent Prosthetic devices, grafts, tissues, transplants, or devices: [employer] BCS 2 size 5 femur, size 5 tibia, +9 poly, 35 x 7.5 mm patella Applied: drain(s) Estimated Blood Loss (mL): 250 Blood products transfused: none Tourniquet time (min): 14 Patient admitted to the hospital for left total knee arthroplasty. Patient consented to the same. Patient underwent left total knee arthroplasty on November 19, 2021. Patient back in her room recovering well as in stable condition. Patient will be discharged home today in stable condition after physical therapy. Status at Discharge Cognitive/behavioral status at discharge: at baseline, oriented Functional status at discharge: uses cane/walker Overall status at discharge: patient is progressing back to baseline Time Spent with Patient Time spent: Less than 30 minutes Exam Vital Signs (past 8 hours): - 11/20/21 00:39 11/20/21 04:00 11/20/21 08:07 Temperature 97.9 F 97.9 F Pulse Rate 67 76 70 Respiratory Rate 18 18 Blood Pressure 134/60 146/69 H 156/72 H Pulse Oximetry 100 100 Oxygen Delivery Method Room Air Oxygen Flow Rate 0 Narrative Exam Narrative: 76-year-old female resting comfortably in bedside chair no apparent distress. Venita dressing is on and function. Dressing is Clean, dry, intact.. Motor functions intact distal bilateral lower extremities. Sensation grossly intact to light touch bilateral lower extremities. Const General: cooperative and comfortable Nutritional Appearance: obese (BMI 38.6) Orientation: alert HENMT Head: normal to inspection Resp Effort & Inspection: normal respiratory effort and able to speak in complete sentences Objective Labs Result Diagrams: 11/20/21 06:40 Labs: Laboratory Results - last 24 hr 11/20/21 06:40 Hgb 9.3 L Hct 28.5 L PFSH Medical History Bilateral lower extremity edema Diabetes (~1995) Easy bruisability History of renal dialysis HLD (hyperlipidemia) HTN (hypertension) Kidney failure MIQUEL (obstructive sleep apnea) Osteoarthritis Overactive bladder Uses self-applied continuous glucose monitoring device Surgical History AV fistula History of arthroplasty of right knee (02/09/21) History of hysterectomy History of kidney transplant (2018) Hx of bilateral cataract extraction Hx of dilation and curettage Family History Mother Diabetes mellitus Father Cancer Social History household members: none Smoking Status: Never smoker alcohol intake: former Discharge Assessment & Plan Assessment and Plan Assessment: Patient progressing as expected status post left total knee arthroplasty Plan of Treatment: Mobilize with physical therapy, patient be maintained on standard total knee replacement protocol Multimodal pain management Discharge home today after physical therapy if safe for home environment Discharge Plan Discharge Plan Patient Disposition: Home Discharge orders & Medications Discharge Orders: Discharge (Order); Ordered 05/13/22 Ordered By: Kwaku Georges Prescriptions: New acetaminophen 325 mg Tablet 650 mg PO Q6HR Qty: 60 0RF polyethylene glycol 3350 17 gram Powder In Packet 17 gm PO DAILY PRN (Reason: Constipation) Qty: 20 0RF aspirin 81 mg Tablet,Delayed Release (Dr/Ec) 81 mg PO BID Qty: 60 0RF oxycodone 10 mg Tablet 10 mg PO Q3HR PRN (Reason: Pain, Severe (7-10)) Qty: 60 0RF Continued losartan 50 mg Tablet 50 mg PO BID 0RF carvedilol 6.25 mg Tablet 12.5 mg PO BID 0RF amlodipine 5 mg Tablet 5 mg PO QAM 0RF tacrolimus 1 mg Capsule 4 mg PO BID 0RF Label Comments: anti rejection insulin lispro [Humalog KwikPen Insulin] 100 unit/mL Insulin Pen 6 - 9 unit SUBCUT TID 0RF mycophenolate sodium 360 mg Tablet,Delayed Release (Dr/Ec) 360 mg PO BID 0RF Rx Instructions: anti rejection drug Lantus Solostar U-100 Insulin 100 unit/mL (3 mL) Insulin Pen 11 unit SUBCUT BEDTIME 0RF lysine 1,000 mg Tablet 1,000 mg PO BID 0RF prednisone 5 mg Tablet 5 mg PO DAILY 0RF Discontinued aspirin 81 mg Tablet,Delayed Release (Dr/Ec) 81 mg PO DAILY 0RF acetaminophen 500 mg Tablet 500 - 1,000 mg PO DAILY PRN (Reason: Pain) 0RF Follow up/Referrals: Octavio Cevallos MD [Primary Care Provider] - Tonia Bennett MD [Physician] - As previously scheduled (Follow up w/ Dr Bennett on 12/02/2021 @ 11:00 am at [facility] Diet/Activity/Treatments Diet: Diet as Tolerated Activity: Walk frequently! Cold/Heat Therapy: Ice to knee as needed for pain. Skin/Wound/Dressing Care Report to your healthcare provider any signs of infection, such as:: chills, fever, night sweats, unusual drainage and unusual redness Visit Report/Discharge Packet Instructions: DI for Knee Replacement Stand Alone Forms: Surgery Discharge Discharge Data Primary Care Provider: Octavio Cevallos Attending Provider: Tonia Bennett Quality VTE Deep Vein Thrombosis/Pulmonary Embolism Present on Admission: No
--- NOTE | 2021-11-20 10:05 | PT.IIE ---
Current Diagnoses Unilateral primary osteoarthritis, left knee (11/19/21) Surgery Performed Operation Date: 11/19/21 10:45 Actual Procedures p Total Knee Arthroplasty(Left) - Tonia Bennett MD Surgical History (Last Reviewed 11/20/21 @ 08:37 by wKaku Georges PA-C) AV fistula Medical History (Last Reviewed 11/20/21 @ 08:37 by Kwaku Georges PA-C) Bilateral lower extremity edema Diabetes (~1995) Easy bruisability History of renal dialysis HLD (hyperlipidemia) HTN (hypertension) Kidney failure MIQUEL (obstructive sleep apnea) Osteoarthritis Overactive bladder Uses self-applied continuous glucose monitoring device Physical Therapy Inpatient Evaluation/Re-Eval M1 PT/OT-IP Prior Functional Status Start: 11/20/21 12:57 Freq: NEEDED Status: Active Protocol: Document 11/20/21 10:05 AB (Rec: 11/20/21 13:24 AB [id number]) Medical Review Prior Functional Status Medical History Reviewed Yes Communication able to make needs known Mobility and Gait pt stated that she is modified independent with all mobilities and ambulation without AD indoors but furniture cruises; uses a SPC or a 4WW for outdoor mobility Social History Household Members none Living Arrangements House Number of Floors (Floors) One Floor Number of Stairs To Enter/Railing? ramp to enter Home Environment Ramp Home Equipment Front Wheel Walker,Four Wheel Walker,Straight Cane Additional Social History Comment pt's daughter will be staying with pt for 1-2 days to assist her and then she will have her neighbor to come in afterwards to assist her M2 PT-IP Current Condition Start: 11/20/21 12:57 Freq: NEEDED Status: Active Protocol: Document 11/20/21 10:05 AB (Rec: 11/20/21 13:24 AB [email or web address]) Physical Therapy Current Condition Current Condition Evaluation Date 11/20/21 Treatment Diagnosis s/p L TKA; difficulty in walking Onset Date 11/19/21 M3 PT-IP Subjective Start: 11/20/21 12:57 Freq: NEEDED Status: Active Protocol: Document 11/20/21 10:05 AB (Rec: 11/20/21 13:24 AB [email or web address]) Subjective Physical Therapy Visit Type Type Initial Evaluation Visit Start Time 10:05 Visit Stop Time 10:48 Total Visit Minutes 43 Number of BOX TURNER Visits 0 Physical Therapy Visit Comments Patient Comments agreeable to do PT Therapy Pain Assessment Pain When Pain Assessed During Mobility Pain Present Pain Present Pain Reported Location Right Knee Intensity 8 Pain Management Techniques Apply Cold,Elevation, Modification of Treatment,Re- positioning,Timing of Activity with Medications M4 PT-IP Mobility and Gait Start: 11/20/21 12:57 Freq: NEEDED Status: Active Protocol: Document 11/20/21 10:05 AB (Rec: 11/20/21 13:24 AB [email or web address]) PT-Bed Mobility Assessment Supine to Sit Supine to Sit Standby Assistance Sit to Supine Sit to Supine Maximum Assistance PT-Transfer Assessment Sit to and From Stand Sit to and from Stand Contact Guard Assistance, Minimal Assistance,1 Person Assistance,Use of Upper Extremities Equipment Transfer Assistive Device Gait Belt,Front Wheeled Walker Orthotic/Prosthetic Devices or Brace: No Comments Mobility Comments completed heel slides prior to mobility. completed supine to sit SBA and cues. completed sit to stand min A and cues. ambulated in room using FWW ~ 25 ft SBA to CGA. presents with slow pace and c/ o increase pain. towards end of ambulation, pt c/o nausea. instructed to sit on EOB. BP checked: 139/63. pt rested. call light on to ask nurse if pt can have meds for nausea and pain. pt agreed to do sit <>stand while waiting and completed x 4 min A on first 2 reps but then just CGA on last 2. instructed pt to lay back in bed to rest. and upon attempting, pt has LOC and PT elevated LE up and shouted for assitance. call light has been on since pt sat down after ambulation. community organization director and BOX TURNER came in to assist pt in repositioning in bed. upon repositioning, pt regaining consciousness. community organization director left and charge nurse came to check and left. BOX TURNER stayed to assist. BP checked again on pt: 176/75. Nurse Hector came in. positioned pt in bed. pt talking and alert. ice pack provided. call light and table placed within reach. Nurse Hector took over care. stated that pt's blood sugar was low. Gait Assessment Gait Gait Assistance Required: Standby Assistance,Contact Guard Assist Distance (Feet) 25 Able to Maintain Weight Bearing Status Yes During Gait Assistive Devices Assistive Device Gait Belt,Front Wheeled Walker Orthotic/Prosthetic Devices or Brace: No Gait Deviations General Gait Pattern Antalgic,Decreased Stride Length,Decreased Feet Clearance Factors Limiting Gait Function Factors Limiting Gait Function Decreased Activity Tolerance, Decreased Strength,Limited Range of Motion,Pain,Poor Balance,Poor Safety Awareness PT-Balance Assessment Sitting Balance and Reactions Static Sitting Balance Ability Good Dynamic Sitting Balance Ability Good Standing Balance and Reactions Static Standing Balance Ability Fair Dynamic Standing Balance Ability Fair M5 PT-IP Objective Assessments Start: 11/20/21 12:57 Freq: NEEDED Status: Active Protocol: Document 11/20/21 10:05 AB (Rec: 11/20/21 13:24 AB [email or web address]) Orientation Orientation/Cognition Level of Alertness Alert Orientation Name,Place,Situation Safety Awareness Decreased Safety Awareness Memory Description No Deficits Noted Gross Range of Motion Lower Extremity ROM Assessment Within Functional Limits Strength Lower Extremity Strength Assessment Bilaterally Impaired Hip 3+/5 Knee 3+/5 Muscle Tone Muscle Tone WNL Yes M6 PT-IP Treatment Start: 11/20/21 12:57 Freq: NEEDED Status: Active Protocol: Document 11/20/21 10:05 AB (Rec: 11/20/21 13:24 AB [email or web address]) Physical Therapy Treatment Education Education Provided Precautions,Weight Bearing Status,Post-Op Packet,Safety M7 PT-IP Assessment and Plan Start: 11/20/21 12:57 Freq: NEEDED Status: Active Protocol: Document 11/20/21 10:05 AB (Rec: 11/20/21 13:24 [email or web address]) PT Summary Assessment and Plan Potential Rehabilitation Potential Fair Status of Condition at Evaluation Evolving Summary Impairments Pain,ROM,Strength,Balance, Coordination,Sensation,Tone, Cognition,Bed Mobility, Transfers,Gait,Activity Tolerance Assessment Summary pt requiring CGA with mobility using FWW. has episode of LOC during PT session. pt plans to go home and daughter and friend to assist her. pt stated that she has outpt PT setup. Goals Bed Mobility Goal Independent Transfer Goal Independent,Front Wheeled Walker Gait Goal Independent,Front Wheel Walker Gait Distance 150 Days to Meet Goals 5 Frequency of Treatment Frequency Of Treatment Twice a Day Treatment Plan Physical Therapy Treatment Plan Bed Mobility Training,Transfer Training,Gait Training, Therapeutic Exercise,Balance Retraining,Post Op Education, Discharge Planning,Hot or Cold Pack,Neuromuscular Re-ed, Coordination Retraining,Manual Therapy Weight Bearing Status Weight Bearing Status Weight Bear as Tolerated Allowed Weight Bearing Amount (enter % LLE: WBAT or #) (%) Recommendations To Nursing Amount of Assist Needed 1 Person Assist Discharge Recommendations PT Discharge Recommendations Home with Assistance, Outpatient PT Transportation Needs at Discharge Private Vehicle
--- NOTE | 2021-11-20 10:58 | CM.DANOTE ---
DCP: Case received, EMR reviewed and met with patient. Introduced self and role. Was able to obtain information regarding patient's baseline activity status prior to her surgery. DCP assessment completed with information currently available. Patient is a 76 year old female who admitted yesterday morning to the care of the orthopedic team. PCP: Dr. Cevallos. Payer: confirmed: Medicare/[employer]. Patient came to the hospital via private vehicle for a surgical procedure. Patient had a left total knee arthroplasty. Patient has history of osteoarthritis. Met with patient in her room. She was sitting up in her chair by her bed, talking on the phone. Confirmed with patient that she resides in [place] alone, but had her daughter, Giovanna Escobar, who will be staying with her. At patient's baseline, she drives, and has a cane to use if needed. P: Patient has discharge orders for today pending working with Leatha Drake RN/Contract Design Agent Discharge Planning/Care Management CM Discharge Assessment Start: 11/20/21 10:56 Freq: Status: Active Protocol: Document 11/20/21 10:57 (Rec: 11/20/21 10:58 [id number]) Discharge Planning Assessment Assigned Apartment Maintenance Technician Tari Drake RN/Contract Design Agent Advance Directives? Yes Advance Directives on File No: At home on the History Provided By Patient,Medical Record Prior Living Arrangements House Household Members none Type of transporation used prior to Drives own vehicle admit Independent with ADL's Yes Is patient alert and oriented? Yes DME Already Rented / Owned Cane Patient/Family Preference OP PT Therapy Barriers to Discharge No Comment Patient indicated, her daughter will be staying with her. Discharge Plan Home Transportation Arrangement Friend can provide transport. Whiteboard Updated in Patient Room with Yes name and ext. # of Apartment Maintenance Technician Review Status In Process Next Review Type Continued Stay Review Pre-Anesthesia Assessment Start: 11/10/21 08:35 Freq: Status: Complete Protocol: Document 11/10/21 08:35 CAB (Rec: 11/10/21 09:25 CAB [id number]) Pre-Anesthesia Assessment Preferred Name Gina Patient Information Reviewed Via Phone Assessment Assessment Completed With Patient Diagnostic Results BMP/CMP,CBC,EKG,Urinalysis Comment Outside labs scanned, EKG @ [facility] 05/2021, COVID screen @ [facility] 06/01 Primary Care Provider Octavio Cevallos Seen Specialist in Last 12 Months Yes Specialist Seen Safety Compliance Specialist,Bead Filler, Hazardous Materials Tanker Driver,Orthopedist Primary Language Gabonese Preferred Language Gabonese Slider Assembler Required No Height 5 ft 7 in Weight 223 lb Body Mass Index (BMI) 34.9 Hearing Ability Normal Visual Assist Magnifying Glass Dentition Type Teeth, Natural Present,Teeth, Missing Barriers to Learning None Hx Anesthesia Reactions Yes: PONV, I come out of anesthesia hard, not combative Additional comment MIQUEL, Does not wear CPAP, has lost weight since diagnosis Hx Family Anesthesia Reaction No Hx Malignant Hyperthermia No Hx Blood Transfusions No Anesthesia Review Requested No Band Maker No alcohol intake former Smoking Status Never smoker Substance Use Type does not use Pain Present Pain Reported Musculoskeletal Symptoms Abnormal Gait,Difficulty Walking,Joint Pain History of Falling (Recent or History of No ) Patient is completely paralyzed or No completely immobile Prosthesis or Orthotic Device Cane,Front Wheel Walker Mental Status Oriented to own ability Is patient on oxygen? No Does patient have MARTINEZ/SOB Yes: MARTINEZ Hx Sleep Apnea Yes: Does not wear CPAP, has lost weight since diagnosis CPAP/BIPAP use prescribed not used Currently Taking a Beta Sona Yes: Carvedilol Can You Climb a Flight of Stairs Without No SOB Hx Chest Pain No Hx SOB Yes: MARTINEZ Hx Syncope or Dizziness Yes Anti-Coagulant Therapy No Has a Orthotic/Prosthetic Practitioner No Cardiac Testing No Hx Pacemaker/ICD No Pacemaker Rep Required? No Cardiac Clearance Received Not Applicable Diet Type At Home Regular,Ketogenic dysphagia No Bladder Pattern Frequency,Incontinent,Nocturia ,Urgency Urinary Catheter Present No Hx Urinary Self Catheterization No Diabetes Yes HgbA1C 6.6 Date 10/16/21 Comment Wears a CGM Patient No Lactating No Hx Drug Resistant Organism No Presence of External or Internal Medical Yes: Bilat cataract, fistula Devices right arm, CGM(abdomen), RT knee Have you had any close contact with No someone diagnosed with COVID-19? Received a COVID vaccine? Yes Received all doses? Yes Marital Status Lives With none Prior Living Arrangements House Number of Floors (Floors) One Floor Support System Child/Children,Friend(s) Does the Patient Have Assistance After Yes: Daughter and neighbors Surgery will assist with care at [place] Patient Discharge Plan Description Return Home Comment Pt advised 1 day length of stay per surgeon office Feels Safe in Current Environment Yes Been Physically Hurt or Threatened By a No Person in Current Environment Do you have thoughts of harming yourself None or others? Are you currently considering suicide? No Do you have a plan to hurt yourself or No Plan others? Do You Have Any Spiritual Beliefs That No May Affect Your HC Choices? Do You Have Any Cultural Practices That No May Affect Your HC Choices? Comment Yazidism Who Can We Speak to About Patient's Care Family, friends Identifying Code for Release of Patient Declines to issue Information Health Care Proxy/Next of Kin Giovanna (daughter) Health Care Proxy Emergency Contact Name Olga Green Emergency Contact Advance Directives? Yes Advance Directives on File No: At home on the fridge Requested Patient Bring Advanced Yes Directives DOS Power of Web Solutions Architect Yes: At home Power of Web Solutions Architect Name Giovanna (kala) Power of Web Solutions Architect PAC Instructions Diabetes instructions,Do not shave/clip surgical site, Durable medical equipment, Medications to take/avoid, Nasal antibiotic,No ETOH/ petroleum product on skin DOS, NPO,Post-op transportation,Pre -surgical wash,Sensory aids, Sturdy shoes/comfortable clothes,Do not bring valuables and remove jewelry
[2021-11-20] MEDS: ONDANSETRON 4 MG/2 ML INJ IV (11:14)
--- NOTE | 2021-11-20 11:32 | PC.NURSE ---
At 1100 I recieved notice from PT Penny that Pt had passesed out during PT and felt light headed and we took bp it was 175/77. We then checked BG and it was 87 after it had been 202 this morning. Pt then vomited at 1130. I gave her IV ZOFRAN AND NAUSEA is resolved BG is now 101 after Pt drank cranberry juice and states she feels better. I informed the PA Lavelle rice and he stated to closely monitor BG and monitor Patient and she can still d/c if all goes well.
--- NOTE | 2021-11-20 14:01 | PT.IPTN ---
Current Diagnoses Unilateral primary osteoarthritis, left knee (11/19/21) Surgery Performed Operation Date: 11/19/21 10:45 Actual Procedures p Total Knee Arthroplasty(Left) - Tonia Bennett MD Physical Therapy Treatment Note M2 PT-IP Current Condition Start: 11/20/21 12:57 Freq: NEEDED Status: Active Protocol: Document 11/20/21 10:05 AB (Rec: 11/20/21 13:24 AB [email or web address]) Physical Therapy Current Condition Current Condition Evaluation Date 11/20/21 Treatment Diagnosis s/p L TKA; difficulty in walking Onset Date 11/19/21 M3 PT-IP Subjective Start: 11/20/21 12:57 Freq: NEEDED Status: Active Protocol: Document 11/20/21 13:38 KS (Rec: 11/20/21 14:31 KS [id number]) Subjective Physical Therapy Visit Type Type Treatment Note Visit Start Time 13:38 Visit Stop Time 14:01 Total Visit Minutes 23 Number of FOURDRINIER OPERATOR Visits 1 Physical Therapy Visit Comments Patient Comments agreeable to do PT Therapy Pain Assessment Pain When Pain Assessed During Mobility Pain Present Pain Present Pain Reported M4 PT-IP Mobility and Gait Start: 11/20/21 12:57 Freq: NEEDED Status: Active Protocol: Document 11/20/21 13:38 KS (Rec: 11/20/21 14:31 KS [id number]) PT-Bed Mobility Assessment Supine to Sit Supine to Sit Standby Assistance Sit to Supine Sit to Supine Minimal Assistance,1 Person Assistance PT-Transfer Assessment Sit to and From Stand Sit to and from Stand Minimal Assistance,1 Person Assistance,Use of Upper Extremities Equipment Transfer Assistive Device Gait Belt,Front Wheeled Walker Orthotic/Prosthetic Devices or Brace: No Transfers Transfer Destination Bed,Toilet Transfer Technique Pt ambulated w/ FWW Transfer Ability Level of Assist Minimal Assistance,1 Person Assistance,Use of Upper Extremities Comments Mobility Comments Pt in bed upon arrival, BG 150 and BP stable. SBA for sup<> sit and Min A for sit<>Stand. Pt c/o nausea but wants to ambulate to bathroom. Pt ambulated ~15 ft from bed to toilet w/ FWW CGA. After voiding, Min A for sit<>stand. Pt c/o increased nausea and slight dizziness and returned to bed w/ Min A. Pt left in bed w/ all needs in reach. Gait Assessment Gait Gait Assistance Required: Contact Guard Assist Distance (Feet) 30 Able to Maintain Weight Bearing Status Yes During Gait Assistive Devices Assistive Device Gait Belt,Front Wheeled Walker Orthotic/Prosthetic Devices or Brace: No Gait Deviations General Gait Pattern Antalgic,Decreased Stride Length,Decreased Feet Clearance Factors Limiting Gait Function Factors Limiting Gait Function Decreased Activity Tolerance, Decreased Strength,Limited Range of Motion,Pain,Poor Balance,Poor Safety Awareness Comments Gait Comments Slow gait w/ decreased stride and minimal ground clearance. C/o increased pain. PT-Balance Assessment Sitting Balance and Reactions Static Sitting Balance Ability Good Dynamic Sitting Balance Ability Good Standing Balance and Reactions Static Standing Balance Ability Fair Dynamic Standing Balance Ability Fair M5 PT-IP Objective Assessments Start: 11/20/21 12:57 Freq: NEEDED Status: Active Protocol: Document 11/20/21 10:05 AB (Rec: 11/20/21 13:24 [id number]) Orientation Orientation/Cognition Level of Alertness Alert Orientation Name,Place,Situation Safety Awareness Decreased Safety Awareness Memory Description No Deficits Noted Gross Range of Motion Lower Extremity ROM Assessment Within Functional Limits Strength Lower Extremity Strength Assessment Bilaterally Impaired Hip 3+/5 Knee 3+/5 Muscle Tone Muscle Tone WNL Yes M6 PT-IP Treatment Start: 11/20/21 12:57 Freq: NEEDED Status: Active Protocol: Document 11/20/21 13:38 OR (Rec: 11/20/21 14:31 OR [id number]) Physical Therapy Treatment Education Education Provided Precautions,Weight Bearing Status,Post-Op Packet,Safety M7 PT-IP Assessment and Plan Start: 11/20/21 12:57 Freq: NEEDED Status: Active Protocol: Document 11/20/21 13:38 OR (Rec: 11/20/21 14:31 OR [id number]) PT Summary Assessment and Plan Potential Rehabilitation Potential Fair Status of Condition at Evaluation Evolving Summary Impairments Pain,ROM,Strength,Balance, Coordination,Sensation,Tone, Cognition,Bed Mobility, Transfers,Gait,Activity Tolerance Assessment Summary Pt remains limited by nausea and dizziness. Unable to progress gait distance this PM . CGA to Min A for bed mobility and transfers, CGA for short distance ambulation. Pt c/o high pain when ambulating and increased nausea, frequently reaching for emesis bag but no vomiting this PM. Not safe at this time to go home, she will require further acute rehab to increase gait distance and improve mobility and activity tolerance. Goals Bed Mobility Goal Independent Transfer Goal Independent,Front Wheeled Walker Gait Goal Independent,Front Wheel Walker Gait Distance 150 Days to Meet Goals 5 Frequency of Treatment Frequency Of Treatment Twice a Day Treatment Plan Physical Therapy Treatment Plan Bed Mobility Training,Transfer Training,Gait Training, Therapeutic Exercise,Balance Retraining,Post Op Education, Discharge Planning,Hot or Cold Pack,Neuromuscular Re-ed, Coordination Retraining,Manual Therapy Weight Bearing Status Weight Bearing Status Weight Bear as Tolerated Allowed Weight Bearing Amount (enter % LLE: WBAT or #) (%) Recommendations To Nursing Amount of Assist Needed 1 Person Assist Discharge Recommendations PT Discharge Recommendations Home with Assistance, Outpatient PT Transportation Needs at Discharge Private Vehicle
[2021-11-20] MEDS: INSULIN LISPRO 100 UNIT/ML 3ML VIAL SUBCUT (17:42)
[2021-11-20 20:10] VITALS: BP 137/47; PULSE 79; RESP 18; TEMP 36.5; O2SAT 98
[2021-11-20] MEDS: INSULIN GLARGINE 100 UNIT/ML 3ML PEN 11 UNIT SUBCUT (20:57)
[2021-11-21] MEDS: ACETAMINOPHEN 325 MG TABLET 650 MG PO ×3 (01:44→11:45)
[2021-11-21] MEDS: OXYCODONE IR 10 MG TABLET PO ×4 (01:44→13:14)
[2021-11-21 05:42] VITALS: BP 159/62; PULSE 78; RESP 16; TEMP 36.7; O2SAT 95
[2021-11-21 08:00] VITALS: BP 140/59; PULSE 84; RESP 16; TEMP 36.7; O2SAT 96
[2021-11-21] MEDS: DOCUSATE 100 MG CAPSULE PO (08:02)
[2021-11-21] MEDS: predniSONE 5 MG TABLET PO (08:02)
[2021-11-21] MEDS: ASPIRIN EC 81 MG TABLET PO (08:02)
[2021-11-21 08:04] VITALS: BP 140/59; PULSE 84
[2021-11-21] MEDS: carvediloL 12.5 MG TABLET PO (08:04)
[2021-11-21] MEDS: AMLODIPINE 5 MG TABLET PO (08:04)
[2021-11-21] MEDS: LOSARTAN 50 MG TABLET PO (08:04)
[2021-11-21] MEDS: TACROLIMUS 1 MG 4 EACH PO (08:05)
[2021-11-21] MEDS: MYCOPHENOLIC 360 MG 360 EACH PO (08:05)
[2021-11-21] MEDS: INSULIN LISPRO 100 UNIT/ML 3ML VIAL SUBCUT ×2 (08:13→12:07)
[2021-11-21] MEDS: polyethylene glycoL 3350 17 GM POWD.PACK PO (09:03)
--- NOTE | 2021-11-21 09:44 | PT.IPTN ---
Current Diagnoses Unilateral primary osteoarthritis, left knee (11/19/21) Surgery Performed Operation Date: 11/19/21 10:45 Actual Procedures p Total Knee Arthroplasty(Left) - Tonia Bennett MD Physical Therapy Treatment Note M2 PT-IP Current Condition Start: 11/20/21 12:57 Freq: NEEDED Status: Active Protocol: Document 11/20/21 10:05 AB (Rec: 11/20/21 13:24 AB [id number]) Physical Therapy Current Condition Current Condition Evaluation Date 11/20/21 Treatment Diagnosis s/p L TKA; difficulty in walking Onset Date 11/19/21 M3 PT-IP Subjective Start: 11/20/21 12:57 Freq: NEEDED Status: Active Protocol: Document 11/21/21 09:19 KS (Rec: 11/21/21 10:40 KS [id number]) Subjective Physical Therapy Visit Type Type Treatment Note Visit Start Time 09:19 Visit Stop Time 09:44 Total Visit Minutes 25 Number of OFFBEARER SEWER PIPE Visits 2 Physical Therapy Visit Comments Patient Comments agreeable to do PT Therapy Pain Assessment Pain When Pain Assessed During Mobility Pain Present Pain Present Pain Reported M4 PT-IP Mobility and Gait Start: 11/20/21 12:57 Freq: NEEDED Status: Active Protocol: Document 11/21/21 09:19 KS (Rec: 11/21/21 10:40 KS [id number]) PT-Bed Mobility Assessment Supine to Sit Supine to Sit Standby Assistance Sit to Supine Sit to Supine Standby Assistance,1 Person Assistance Scooting Scooting to Edge of Bed Contact Guard Assistance PT-Transfer Assessment Sit to and From Stand Sit to and from Stand Contact Guard Assistance,1 Person Assistance,Use of Upper Extremities Equipment Transfer Assistive Device Gait Belt,Front Wheeled Walker Orthotic/Prosthetic Devices or Brace: No Transfers Transfer Destination Bed Transfer Technique Pt ambulated w/ FWW Transfer Ability Level of Assist Contact Guard Assistance,1 Person Assistance,Use of Upper Extremities Comments Mobility Comments Pt in bed upon arrival, hesitant to participate due to pain. SBA for sup<>sit using gait belt to self assist LLE out of bed. CGA for sit<>stand w/ FWW. Pt stood ~3 min prior to ambulating and able to maintain standing balance SBA w/ FWW. She then ambulated ~40 ft in room w/ FWW SBA to CGA w/ slow gait, decreased stride and minimal ground clearance. Pt low tolerance for ambulation due to pain and returned to bed, SBA using gaitbelt to assist LLE back into bed. Pt left in bed w/ all needs in reach. Gait Assessment Gait Gait Assistance Required: Standby Assistance,Contact Guard Assist,1 Person Assist Distance (Feet) 40 Able to Maintain Weight Bearing Status Yes During Gait Assistive Devices Assistive Device Gait Belt,Front Wheeled Walker Orthotic/Prosthetic Devices or Brace: No Gait Deviations General Gait Pattern Antalgic,Decreased Stride Length,Decreased Feet Clearance Factors Limiting Gait Function Factors Limiting Gait Function Decreased Activity Tolerance, Decreased Strength,Limited Range of Motion,Pain,Poor Balance,Poor Safety Awareness Comments Gait Comments Slow gait w/ decreased stride and minimal ground clearance. C/o increased pain. No LOB, denied dizziness or nausea. Stair Climbing Assessment Comments Stair Climbing Comments No stairs to enter home. PT-Balance Assessment Sitting Balance and Reactions Static Sitting Balance Ability Good Dynamic Sitting Balance Ability Good Standing Balance and Reactions Static Standing Balance Ability Good Dynamic Standing Balance Ability Fair Device Used FWW M5 PT-IP Objective Assessments Start: 11/20/21 12:57 Freq: NEEDED Status: Active Protocol: Document 11/20/21 10:05 AB (Rec: 11/20/21 13:24 AB [id number]) Orientation Orientation/Cognition Level of Alertness Alert Orientation Name,Place,Situation Safety Awareness Decreased Safety Awareness Memory Description No Deficits Noted Gross Range of Motion Lower Extremity ROM Assessment Within Functional Limits Strength Lower Extremity Strength Assessment Bilaterally Impaired Hip 3+/5 Knee 3+/5 Muscle Tone Muscle Tone WNL Yes M6 PT-IP Treatment Start: 11/20/21 12:57 Freq: NEEDED Status: Active Protocol: Document 11/21/21 09:19 KS (Rec: 11/21/21 10:40 KS [id number]) Physical Therapy Treatment Exercises Exercises Ankle Pumps,Gluteal Sets,Quad Sets,Straight Leg Raises Education Education Provided Precautions,Weight Bearing Status,Post-Op Packet,Safety Other Treatments Other Treatment Performed Discussed at home safety and outpatient PT - pt has first appt scheduled for 11/27. M7 PT-IP Assessment and Plan Start: 11/20/21 12:57 Freq: NEEDED Status: Active Protocol: Document 11/21/21 09:19 KS (Rec: 11/21/21 10:40 KS [id number]) PT Summary Assessment and Plan Potential Rehabilitation Potential Fair Status of Condition at Evaluation Evolving Summary Impairments Pain,ROM,Strength,Balance, Coordination,Sensation,Tone, Cognition,Bed Mobility, Transfers,Gait,Activity Tolerance Assessment Summary Pt w/ slightly increased tolerance for ambulation today , but limited by high reported pain rather than dizziness and nausea. SBA for bed mobility, SBA to CGA for transfers and ambulation w/ FWW and able to tolerate 40 ft ambulation which pt reports is farther than she will have to ambulate to get inside home or from bed to bathroom and bed to kitchen etc. Pt plans for her daughter to stay temporarily to assist and then friends following. She will benefit from outpatient therapy to improve activity tolerance, strength, and ROM. Goals Bed Mobility Goal Independent Transfer Goal Independent,Front Wheeled Walker Gait Goal Independent,Front Wheel Walker Gait Distance 150 Days to Meet Goals 5 Frequency of Treatment Frequency Of Treatment Twice a Day Treatment Plan Physical Therapy Treatment Plan Bed Mobility Training,Transfer Training,Gait Training, Therapeutic Exercise,Balance Retraining,Post Op Education, Discharge Planning,Hot or Cold Pack,Neuromuscular Re-ed, Coordination Retraining,Manual Therapy Weight Bearing Status Weight Bearing Status Weight Bear as Tolerated Allowed Weight Bearing Amount (enter % LLE: WBAT or #) (%) Recommendations To Nursing Amount of Assist Needed 1 Person Assist Discharge Recommendations PT Discharge Recommendations Home with Assistance, Outpatient PT Transportation Needs at Discharge Private Vehicle
--- NOTE | 2021-11-21 11:18 | CM.DPC ---
DCP Discharge Home Per Ortho PA, pt now stable for d/c home but changed pt's pain medication due to some pain management issues and plan of d/c this afternoon. Per APPLICATION ARCHITECT, worked with pt this morning and pt cleared for safe d/c home with Dtr assist and outpt PT. SW met bedside with pt and explained role and discussed d/c today and pt confirms Dtr will transport her home and stay a few days and then her neighbor plans to assist as needed. Pt states she already has outpt PT set up for 11/27/21 and plans to d/c home this afternoon if pain management improved and she will call her Dtr then to come transport her home. APPLICATION ARCHITECT will work with pt again this afternoon if pt hasn't discharged yet, otherwise cleared for d/c. Plan: Patient to d/c home via Dtr POV later this afternoon and outpt PT already set up. DAYANARA Villalba
[2021-11-21] MEDS: TRAMADOL 50 MG TABLET PO (11:45)
== END 2021-11-21 14:05 | disposition home or self-care (01) | DRG 470 ==
LOC: OR 11-22 13:34 → AC 11-22 13:34
PROVIDERS: Admitting Provider Orthopaedic Surgery; PCP Family Medicine; Referring Provider Orthopaedic Surgery; Visit Provider Orthopaedic Surgery
PROC: 0SRD0JZ Replacement of Left Knee Joint with Synthetic Substitute, Open Approach (ICD-10-PCS; CPT 27447; principal; 2021-11-19 10:45)
DX: M17.12 Unilateral primary osteoarthritis, left knee (principal); Z94.0 Kidney transplant status; D84.821 Immunodeficiency due to drugs; I89.0 Lymphedema, not elsewhere classified; I10 Essential (primary) hypertension; E11.9 Type 2 diabetes mellitus without complications; T45.1X5A Adverse effect of antineoplastic and immunosuppressive drugs, initial encounter; Z79.4 Long term (current) use of insulin; Z79.899 Other long term (current) drug therapy; Z20.822 Contact with and (suspected) exposure to COVID-19
CPT/HCPCS: 36415; 73560; 82962; 85014; 85018; 87635; 97116; 97162; 97530; C1776; C9803; C1713; C9290; J0171; J0690; J1100; J1815; J2250; J2274; J2405; J2704; J3010

== ENCOUNTER → 2022-02-15 07:51 | Outpatient (CLI) | payer MEDICARE, SELFPAY ==
[2021-11-19 13:45] VITALS: BMI 38.5
--- NOTE | 2022-02-15 | DI.ECHO.S_ITS ---
[facility]---------+ [facility] +---------+ : : [address] : : : : [id number] : : : : Phone: [phone]+ Echocardiogram Report + + :Name: STORM JOSEPH Study Date: 02/15/2022 Height: 67 in : :[facility] ReadingLocation: Weight: 223 lb : : Gender: Female BSA: 2.1 m2 : :: 1945 Age: 76 yrs BP: 146/65 mmHg: :Reason For Study: SOB : :Ordering Physician: RORY, : :NAVYA Adan Performed By: Ian Sy : :Referring: NAVYA VALADEZ : + + Interpretation Summary 1) Normal left ventricular size, wall motion, and systolic function (EF 60- 65%). 2) Normal right ventricular size and function. 3) There is mild aortic stenosis (valve area 1.7cm2, mean gradient 17mmHg). 4) Compared to the Echo done 06/25/2020, no significant change. Procedure: A two-dimensional transthoracic echocardiogram with color flow and Doppler was performed. The study quality was technically adequate. Comparison is made with the echocardiogram of 06/25/2020. The patient was in normal sinus rhythm during the exam. Left Ventricle: The left ventricle is normal in size. There is mild concentric left ventricular hypertrophy. Left ventricular systolic function is normal. The ejection fraction is estimated to be 60-65%. There are no focal wall motion abnormalities. Diastolic parameters suggest a pseudonormalization pattern, consistent with probable elevated filling pressures. Right Ventricle: The right ventricle is normal in size and function. Atria: The left atrium is moderately dilated. Right atrial size is normal. The interatrial septum grossly appears intact with no obvious evidence for an atrial septal defect. Mitral Valve: There is mild mitral annular calcification. There is mild mitral regurgitation. Aortic Valve: The aortic valve is mildly calcified. There is mildly reduced leaflet mobility. The aortic valve is trileaflet. There is mild aortic stenosis. The aortic valve mean gradient is 17 mmHg. The calculated aortic valve area is 1.7 cm2. There is trace aortic regurgitation. Tricuspid Valve: The tricuspid valve is normal in structure and function. There is a trace or physiologic amount of tricuspid regurgitation. Pulmonary artery pressures cannot be estimated because of the lack of a measurable TR jet velocity. Pulmonic Valve: The pulmonic valve is normal in structure and function. There is mild pulmonic regurgitation. Great Vessels: The aortic root is normal size. The dimensions of the ascending aorta are normal. The IVC is of normal diameter and collapses greater than 50% with a sniff. This suggests a low right atrial pressure of 3 mm Hg. Pericardium/ Pleura There is no pericardial effusion. There is no pleural effusion. MMode/2D Measurements & Calculations LVIDd: 5.2 cm LVOT diam: 2.1 cm LVIDs: 3.3 cm Ao root diam: 2.9 cm FS: 37.0 % asc Aorta Diam: 3.2 cm IVSd: 1.1 cm LVPWd: 1.1 cm LV kauffman. diameter/BSA (cm/m^2): 2.5 LV sys. diameter/BSA (cm/m^2): 1.6 LA A2 area: 22.9 cm2 RA long axis: 6.3 cm LA A4 area: 25.2 cm2 RA area: 20.5 cm2 LA length (vol): 6.2 cm RA vol: 56.1 ml LA vol: 79.5 ml RA : 26.5 ml/m2 LA vol index: 37.5 ml/m2 TAPSE: 3.0 cm Doppler Measurements & Calculations Ao V2 max: 278.1 cm/sec LVOT Max Bernardino: 138.1 cm/sec Ao V2 mean: 195.4 cm/sec LV V1 max P.6 mmHg Ao max P.3 mmHg LV V1 VTI: 33.8 cm Ao mean P.2 mmHg SHAUN(I,D): 1.7 cm2 Ao V2 VTI: 68.4 cm SHAUN(V,D): 1.7 cm2 sev ratio: 0.49 SHAUN indexed to BSA (cm^2/m^2): 0.80 MV E max bernardino: 123.4 cm/sec SV(LVOT): 116.4 ml MV A max bernardino: 117.1 cm/sec MV E/A: 1.1 Med Peak E' Bernardino: 7.7 cm/sec E/E' med: 16.1 Lat Peak E' Bernardino: 8.8 cm/sec E/E' lat: 14.0 E/e' average: 15.0 MV dec time: 0.24 sec Reading Physician:01:56 PM
== END ==
PROVIDERS: PCP Family Medicine; Referring Provider Family Medicine; Visit Provider Family Medicine
DX: I08.0 Rheumatic disorders of both mitral and aortic valves (principal); R06.02 Shortness of breath
CPT/HCPCS: 93306